=== PATIENT | female | born 1960 | race Caucasian/White ===

== ENCOUNTER 2019-06-11 17:50 | Inpatient (IN) | payer MEDICARE, OTHER ==
[~2019-06-11] VITALS: Ht 154.9 cm; Wt 64.0 kg
[2019-06-11] MEDS ORDERED: IV RINGERS SOLUTION,LACTATED 1,000 ML IV SCH (18:04)
--- NOTE | 2019-06-11 18:04 | ED.ADGEN ---
Past History Past Medical History: Anxiety, Arthritis, Bipolar, Constipation, COPD, Dementia, Depression, Gallstones, High Cholesterol, Hypertension Past Surgical History: Cholecystectomy Smoking: Quit Greater Than 1 Year Adult General Chief Complaint Chief Complaint ".. I am sad.... I... get depressed... " "Not good... .. " HPI HPI Patient is a 59 year old female who presents with above hx and complaints of mental status change and depression. Pt. resident of [place], [place] since 11/28/2014. Patient has a prior diagnosis of bipolar disorder, allergic rhinitis, chronic salpingitis, deconditioning- weakness, dis- coordination, hypothyroidism, type 2 diabetes, schizoaffective disorder, arthritis, gastritis, GERD, Constipation and Dementia. . Patient sent for evaluation for [facility]. Pt. is not pre- approved. Patient currently minimally informative. Pt. normally follows with Dr. Faust. Pt. admits to being depressed only other current complaints is some epigastric tenderness. [facility] reports she had expressed suicidal ideation. Review of Systems Review of Systems Poor Historian Constitutional: Denies fever or chills [] Eyes: Denies change in visual acuity, redness, or eye pain [] HENT: Denies nasal congestion or sore throat [] Respiratory: Denies cough or shortness of breath [] Cardiovascular: No additional information not addressed in HPI [] GI:Complaints of epigastric, and mid abdomen pain, Denies , nausea, vomiting, bloody stools or diarrhea [] Complaints of Constipation : Denies dysuria or hematuria [] Musculoskeletal: Denies back pain or joint pain [] Integument: Denies rash or skin lesions [] Neurologic: Denies headache, focal weakness or sensory changes [] Endocrine: Denies polyuria or polydipsia [] All other systems were reviewed and found to be within normal limits, except as documented in this note. Family History Family History Not currently available Current Medications Current Medications Current Medications Medications (Trade) Dose Ordered Sig/Sandra Start Time Stop Time Status Last Admin Dose Admin Lactated Ringer's 1,000 ml @ 1,000 mls/hr Q1H 06/11/19 18:04 06/11/19 19:03 DC 06/11/19 18:24 1,000 MLS/HR Magnesium Hydroxide (Milk Of Magnesia) 2,400 mg 1X ONCE 06/11/19 21:00 06/11/19 21:01 DC 06/11/19 20:48 2,400 MG See nursing for home meds Allergies Allergies Allergies Coded Allergies Type Severity Reaction Last Updated Verified No Known Drug Allergies 06/11/19 No Physical Exam Physical Exam Constitutional: Moderately acute emotional distress, non-toxic appearance. [Has very poor eye contact. ] HENT: Normocephalic, atraumatic, bilateral external ears normal, oropharynx moist, no oral exudates, nose normal. [] Eyes: PERRLA, EOMI, conjunctiva normal, no discharge. Glasses Neck: Normal range of motion, no tenderness, supple, no stridor. [] Cardiovascular:Heart rate regular rhythm, no murmur [mild PMI to the left Lungs & Thorax: Bilateral breath sounds equal at apex on auscultation []few basilar wheezes. Abdomen: Bowel sounds normal, soft, mild epigastric and mid abdomen tenderness, no masses, no pulsatile masses. Distended Skin: Warm, dry, no erythema, no rash. Poor turgor Back: No tenderness, no CVA tenderness. [] Extremities: No tenderness, no cyanosis, no clubbing, ROM intact, no edema. [] Neurologic: Alert and oriented , moves all extremities on request does have distal sensory, no gross focal deficits noted. []DTRs +2 patella and brachial. Very slow to respond to questions. Hesitant. Psychologic: Affect anxious, judgement appears impaired, mood depressed. Admits to suicidal thoughts. Denies Hallucinations or homicidal ideation. Current Patient Data Vital Signs Vital Signs Date Time Temp Pulse Resp B/P (MAP) Pulse Ox O2 Delivery O2 Flow Rate FiO2 06/12/19 00:00 77 16 130/85 (100) 95 Room Air 06/11/19 21:33 98.7 Lab Results Laboratory Tests Test 06/11/19 18:14 06/11/19 19:02 White Blood Count 5.1 x10^3/uL (4.0-11.0) Red Blood Count 4.23 x10^6/uL (3.50-5.40) Hemoglobin 12.7 g/dL (12.0-15.5) Hematocrit 38.4 % (36.0-47.0) Mean Corpuscular Volume 91 fL (79-100) Mean Corpuscular Hemoglobin 30 pg (25-35) Mean Corpuscular Hemoglobin Concent 33 g/dL (31-37) Red Cell Distribution Width 13.6 % (11.5-14.5) Platelet Count 263 x10^3/uL (140-400) Neutrophils (%) (Auto) 77 % (31-73) H Lymphocytes (%) (Auto) 16 % (24-48) L Monocytes (%) (Auto) 7 % (0-9) Eosinophils (%) (Auto) 0 % (0-3) Basophils (%) (Auto) 1 % (0-3) Neutrophils # (Auto) 4.0 x10^3uL (1.8-7.7) Lymphocytes # (Auto) 0.8 x10^3/uL (1.0-4.8) L Monocytes # (Auto) 0.3 x10^3/uL (0.0-1.1) Eosinophils # (Auto) 0.0 x10^3/uL (0.0-0.7) Basophils # (Auto) 0.0 x10^3/uL (0.0-0.2) Erythrocyte Sedimentation Rate 19 (0-25) Prothrombin Time 12.2 SEC (9.4-11.4) H Prothrombin Time INR 1.2 (0.9-1.1) H Activated Partial Thromboplast Time 39 SEC (23-33) H Sodium Level 139 mmol/L (136-145) Potassium Level 3.5 mmol/L (3.5-5.1) Chloride Level 101 mmol/L (98-107) Carbon Dioxide Level 29 mmol/L (21-32) Anion Gap 9 (6-14) Blood Urea Nitrogen 17 mg/dL (7-20) Creatinine 0.8 mg/dL (0.6-1.0) Estimated GFR (Cockcroft-Gault) 73.7 Glucose Level 95 mg/dL (70-99) Calcium Level 9.1 mg/dL (8.5-10.1) Magnesium Level 1.4 mg/dL (1.8-2.4) L Total Bilirubin 0.3 mg/dL (0.2-1.0) Direct Bilirubin 0.2 mg/dL (0.0-0.2) Aspartate Amino Transferase (AST) 22 U/L (15-37) Alanine Aminotransferase (ALT) 25 U/L (14-59) Alkaline Phosphatase 33 U/L (46-116) L Creatine Kinase 59 U/L (26-192) Troponin I Quantitative < 0.017 ng/mL (0-0.055) ZP-Pnj-S-Type Natriuretic Peptide 134 pg/mL (0-124) H Total Protein 7.0 g/dL (6.4-8.2) Albumin 3.4 g/dL (3.4-5.0) Urine Collection Type Unknown Urine Color Yellow Urine Clarity Clear Urine pH 7.0 Urine Specific [place] 1.010 Urine Protein Neg (NEG-TRACE) Urine Glucose (UA) Neg mg/dL (NEG) Urine Ketones (Stick) Neg mg/dL (NEG) Urine Blood Neg (NEG) Urine Nitrite Neg (NEG) Urine Bilirubin Neg (NEG) Urine Urobilinogen Dipstick 0.2 mg/dL (0.2 mg/dL) Urine Leukocyte Esterase Trace (NEG) Urine RBC 0 /HPF (0-2) Urine WBC 1-4 /HPF (0-4) Urine Squamous Epithelial Cells None /LPF Urine Bacteria 0 /HPF (0-FEW) Urine Opiates Screen Neg (NEG) Urine Methadone Screen Neg (NEG) Urine Barbiturates Neg (NEG) Urine Phencyclidine Screen Neg (NEG) Urine Amphetamine/Methamphetamine Neg (NEG) Urine Benzodiazepines Screen Neg (NEG) Urine Cocaine Screen Neg (NEG) Urine Cannabinoids Screen Neg (NEG) Urine Ethyl Alcohol Neg (NEG) EKG EKG My interpretation EKG shows a sinus rhythm at 88 beats per minute. There is left axis deviation and a fascicular block. No findings acute STEMI of contralateral changes[] Radiology/Procedures Radiology/[place] [address] IMAGING REPORT Signed PATIENT: PRO ROMERO ACCOUNT: [id number] : 1960 LOCATION: ER AGE: 59 SEX: F EXAM STATUS: REG ER ORD. PHYSICIAN: AMNA SCOTT MD REASON: Mental status change. Hx of fall PROCEDURE: CT HEAD AND CERVICAL SPINE WO CT Head W/O Contrast: History: Mental status change Comparison: none Axial images were obtained without contrast. The meraz and white matter appears normal and symmetrical for the patients age. There is no mass effect, extraaxial fluid collections or hydrocephalus. There is no gross bleed. There is no focal loss of meraz-white matter distinction to suggest acute ischemia, i.e. stroke. There is a polyp versus mucous retention cyst in the right maxillary sinus. Impression: No acute findings. End impression CT C-Spine without contrast: Clinical History: Mental status change and fall Technique: Axial helical images of the cervical spine were obtained without contrast, axial coronal and sagittal reconstruction was performed. Findings: There is no loss of vertebral body stature. There is no prevertebral soft tissue swelling. The vertebral bodies are well aligned. The C1-C2 relationship is normal. The visualized osseous structures appear normal. Impression: No acute findings. Clinical correlation suggested. PQRS Compliance Statement: One or more of the following individualized dose reduction techniques were utilized for this examination: 1. Automated exposure control 2. Adjustment of the mA and/or kV according to patient size 3. Use of iterative reconstruction technique Electronically signed by: Suzan Carlos III, MD (06/11/2019 7:58 PM) [facility] DICTATED AND SIGNED BY: SUZAN CARLOS III, MD DATE: 06/11/191957 CC: AMNA SCOTT MD; PCP,NO ~ [][place] [address] IMAGING REPORT Signed PATIENT: PRO ROMERO ACCOUNT: [id number] : 1960 LOCATION: ER AGE: 59 SEX: F EXAM STATUS: REG ER ORD. PHYSICIAN: AMNA SCOTT MD REASON: mid abdomen pain PROCEDURE: ABDOMEN SUPINE & UPRIGHT AP upright supine abdomen x-rays HISTORY: Mid abdominal pain. FINDINGS: Lung bases unremarkable. Cholecystectomy clips. No pneumoperitoneum. Mild prominent gas throughout the large and small bowel without abnormal dilation. Mild volume of stool within the rectosigmoid colon. No abnormal air-fluid levels of the bowel on the upright film. Bones are unremarkable. IMPRESSION: No bowel obstruction evident. Electronically signed by: Tan Epstein MD (06/11/2019 9:49 PM) [id number] DICTATED AND SIGNED BY: TAN EPSTEIN MD DATE: 06/11/192148 CC: AMNA SCOTT MD; PCP,NO ~ Course & Med Decision Making Course & Med Decision Making Pertinent Labs and Imaging studies reviewed. (See chart for details) See Tele Psych Eval. - Dr. Xiomara Mendoza Pt. accepted to [facility] - Dr. Rai. Consult to Dr. Sanchez for medical issues. [] Final Impression Final Impression 1. Mental Status Change[] 2. Depression 3. Hx. Bipolar 4. Hypomagnesium 1.4 5. Constipation 6. Suicidal ideation 7. History of hypertension 8. History of chronic pain 9. History of anxiety disorder 10. History of elevated lipids 11. History of COPD 12. Hx. Schizoaffective Disorder 13. Hx. Dementia 14. Hx. of Gait Disorder Dragon Disclaimer Dragon Disclaimer This electronic medical record was generated, in whole or in part, using a voice recognition dictation system. Dragon Disclaimer This chart was dictated in whole or in part using Voice Recognition software in a busy, high-work load, and often noisy Emergency Department environment. It may contain unintended and wholly unrecognized errors or omissions. AMNA SCOTT MD Jun 11, 2019 18:04
--- NOTE | 2019-06-11 18:42 | RAD ---
PORTABLE CHEST 1V Clinical History: MS change Technique: AP view of the chest was obtained at 06/11/2019 6:04 PM. Comparison: None. Findings: The cardiomediastinal silhouette is normal. The pulmonary vasculature is normal. The lungs and pleural margins are clear. Impression: No evidence of an acute cardiopulmonary process. Electronically signed by: Jose M Morrison III, MD (06/11/2019 6:25 PM) [facility]
[2019-06-11 18:52] LABS: BASO % 1 % (0-3); EOS % 0 % (0-3); HEMATOCRIT 38.4 % (36.0-47.0); HEMOGLOBIN 12.7 g/dL (12.0-15.5); LYMPH # 0.8 x10^3/uL (1.0-4.8); LYMPH % 16 % (24-48); MEAN CORPUSCULAR HEMOGLOBIN 30 pg (25-35); MEAN CORPUSCULAR HGB CONC 33 g/dL (31-37); MEAN CORPUSCULAR VOLUME 91 fL (79-100); MONO # 0.3 x10^3/uL (0.0-1.1); MONO % 7 % (0-9); NEUT % 77 % (31-73); PLATELET COUNT 263 x10^3/uL (140-400); RED BLOOD COUNT 4.23 x10^6/uL (3.50-5.40); RED CELL DISTRIBUTION WIDTH 13.6 % (11.5-14.5); WHITE BLOOD COUNT 5.1 x10^3/uL (4.0-11.0)
[2019-06-11 19:08] LABS: ALBUMIN 3.4 g/dL (3.4-5.0); CALCIUM 9.1 mg/dL (8.5-10.1); CREATININE 0.8 mg/dL (0.6-1.0); GFR 73.7
[2019-06-11 19:09] LABS: DIRECT BILIRUBIN 0.2 mg/dL (0.0-0.2); MAGNESIUM 1.4 mg/dL (1.8-2.4); POTASSIUM 3.5 mmol/L (3.5-5.1); TOTAL BILIRUBIN 0.3 mg/dL (0.2-1.0)
[2019-06-11 19:26] LABS: BARBITURATES NEG (NEG); BENZODIAZEPINES NEG (NEG); CANNABINOIDS NEG (NEG); COCAINE NEG (NEG); METHADONE NEG (NEG); OPIATES NEG (NEG); PHENCYCLIDINE NEG (NEG)
[2019-06-11 19:27] LABS: AMPHETAMINE/METHAMPHETAMINE NEG (NEG)
[2019-06-11 19:32] LABS: BACTERIA,URINE 0 /HPF (0-FEW); BILIRUBIN,URINE NEG (NEG); CLARITY,URINE CLEAR; COLOR,URINE YELLOW; GLUCOSE,URINE NEG (NEG); NITRITE,URINE NEG (NEG); RBC,URINE 0 /HPF (0-2); UROBILINOGEN,URINE 0.2 mg/dL (0.2 mg/dL)
[2019-06-11 19:55] LABS: SEDIMENTATION RATE 19 (0-25)
--- NOTE | 2019-06-11 20:00 | RAD ---
CT Head W/O Contrast: History: Mental status change Comparison: none Axial images were obtained without contrast. The meraz and white matter appears normal and symmetrical for the patients age. There is no mass effect, extraaxial fluid collections or hydrocephalus. There is no gross bleed. There is no focal loss of meraz-white matter distinction to suggest acute ischemia, i.e. stroke. There is a polyp versus mucous retention cyst in the right maxillary sinus. Impression: No acute findings. End impression CT C-Spine without contrast: Clinical History: Mental status change and fall Technique: Axial helical images of the cervical spine were obtained without contrast, axial coronal and sagittal reconstruction was performed. Findings: There is no loss of vertebral body stature. There is no prevertebral soft tissue swelling. The vertebral bodies are well aligned. The C1-C2 relationship is normal. The visualized osseous structures appear normal. Impression: No acute findings. Clinical correlation suggested. PQRS Compliance Statement: One or more of the following individualized dose reduction techniques were utilized for this examination: 1. Automated exposure control 2. Adjustment of the mA and/or kV according to patient size 3. Use of iterative reconstruction technique Electronically signed by: Jose M Morrison III, MD (06/11/2019 7:58 PM) [facility]
[2019-06-11] MEDS ORDERED: MAGNESIUM HYDROXIDE 2,400 MG/30 ML ORAL.SUSP. PO ONE ×2 (20:45→21:00)
--- NOTE | 2019-06-11 21:52 | RAD ---
AP upright supine abdomen x-rays HISTORY: Mid abdominal pain. FINDINGS: Lung bases unremarkable. Cholecystectomy clips. No pneumoperitoneum. Mild prominent gas throughout the large and small bowel without abnormal dilation. Mild volume of stool within the rectosigmoid colon. No abnormal air-fluid levels of the bowel on the upright film. Bones are unremarkable. IMPRESSION: No bowel obstruction evident. Electronically signed by: Alexander Epstein MD (06/11/2019 9:49 PM) [id number]
[2019-06-12] MEDS ORDERED: MAG HYDROX/AL HYDROX/SIMETH 30 ML ORAL.SUSP PO PRN (00:45)
[2019-06-12] MEDS ORDERED: MAGNESIUM HYDROXIDE 2,400 MG/30 ML ORAL.SUSP. PO PRN (00:45)
[2019-06-12] MEDS ORDERED: METHYL SALICYLATE/MENTHOL TOPICAL OINTMENT 57GM TUBE. TP PRN (00:45)
[2019-06-12] MEDS ORDERED: ACETAMINOPHEN 325 MG TABLET PO PRN (00:45)
[2019-06-12] MEDS ORDERED: FLUT16SP21 NS (01:26)
[2019-06-12] MEDS ORDERED: SIMV20TA18 PO (01:26)
[2019-06-12] MEDS ORDERED: METF500T16 PO (01:26)
[2019-06-12] MEDS ORDERED: PALI117D IM (01:26)
[2019-06-12] MEDS ORDERED: CHOL100013 PO (01:26)
[2019-06-12] MEDS ORDERED: DIAZ5TAB4 PO (01:26)
[2019-06-12] MEDS ORDERED: MULT-245 PO (01:26)
[2019-06-12] MEDS ORDERED: FENO145T30 PO (01:26)
[2019-06-12] MEDS ORDERED: BUPR300T3 PO (01:26)
[2019-06-12] MEDS ORDERED: CHLO100T6 PO (01:26)
[2019-06-12] MEDS ORDERED: OLAN5TAB5 PO (01:26)
[2019-06-12] MEDS ORDERED: POLY2500 PO (01:26)
[2019-06-12] MEDS ORDERED: OLAN5TAB3 PO (01:26)
[2019-06-12] MEDS ORDERED: CALC500T13 PO (01:26)
[2019-06-12] MEDS ORDERED: LEVO75TA5 PO (01:26)
[2019-06-12] MEDS ORDERED: TIOT18CA IH (01:26)
[2019-06-12] MEDS ORDERED: DONE5TAB7 PO (01:26)
[2019-06-12 01:58] VITALS: BP 142/89
--- NOTE | 2019-06-12 02:17 | NUR ---
Admission Note with Justification for Admission to [facility] Patient admitted to [facility] for protective oversight for emergency stabilization of acute psychiatric crisis. Pt admitted from: [facility] Facility Mode of arrival: EMS Accompanied By: [facility] Staff Precipitating behaviors that initiated intake and admission:PT with SI depression anxiety, new diagnosis of Dementia made her feel SI. Attempted to walk into traffic. Description of failure of out patient attempts at stabilization in previous setting list behavior and medication trials: Med adjustments and therapy. Behaviors and assessment findings upon admission: Pt depressed and withdrawn, denies SI plan, but has SI thoughts related to new DX of dementia. Plan: Admit for protective oversight for adjustment and stabilization of medications, behaviors and mood. Intense treatment regimen including groups, medication adjustments, therapy, consistent regimen for ADL's, self care, and sleep hygiene. Daily monitoring by Inpatient staff, Psychiatry, and Medical Physician.
[2019-06-12] MEDS ORDERED: IPRATRPIUM/ALBUTEROL 0.5/2.5MG 3 ML NEBU. ONE (05:02)
[2019-06-12 05:53] VITALS: BP 108/73
[2019-06-12] MEDS: LEVOTHYROXINE 75 MCG TABLET PO SCH (06:25)
--- NOTE | 2019-06-12 06:39 | EKG ---
[address] [address] Test Date: 2019-06-11 Test Time: 18:07:52 Pat Name: PRO ROMERO Department: Room: [facility] 1 Gender: F Winder Helper: : 1960 Requested By: AMNA SCOTT Order Number: [id number] Reading MD: Kirk Raygoza MD Measurements Intervals [place] Rate: 88 P: 27 [place]: 206 QRS: -36 QRSD: 94 T: 103 QT: 384 QTc: 468 Interpretive Statements SINUS RHYTHM LAD NON-SPECIFIC ST/T CHANGES Electronically Signed On 06-18-2019 10:35:37 CDT by Kirk Raygoza MD
[2019-06-12] MEDS: IPRATRPIUM/ALBUTEROL 0.5/2.5MG 3 ML NEBU. NEB SCH ×4 (06:46→20:23)
[2019-06-12 07:08] LABS: ALBUMIN 3.2 g/dL (3.4-5.0); ALBUMIN/GLOBULIN RATIO 0.9 (1.0-1.7); CALCIUM 8.8 mg/dL (8.5-10.1); CREATININE 0.7 mg/dL (0.6-1.0); GFR 85.9; POTASSIUM 3.5 mmol/L (3.5-5.1); TOTAL BILIRUBIN 0.4 mg/dL (0.2-1.0); TOTAL PROTEIN 6.6 g/dL (6.4-8.2)
[2019-06-12] MEDS: POLYETHYLENE GLYCOL 3350 17 GM PACKET. PO SCH (08:56)
[2019-06-12] MEDS: FLUTICASONE 50MCG/NASAL SPRAY 16GM BOTTLE. NS SCH (08:57)
[2019-06-12] MEDS: MULTIVITAMIN with MINERAL TABLET. PO SCH (08:57)
[2019-06-12] MEDS: FENOFIBRATE NANOCRYSTALLIZED 145 MG TABLET PO SCH (08:57)
[2019-06-12] MEDS: CALCIUM CARBONATE 500 MG TABLET PO SCH (08:57)
[2019-06-12] MEDS: DONEPEZIL HCL 5 MG TABLET. PO SCH (08:57)
[2019-06-12] MEDS: metFORMIN 500 MG TABLET PO SCH ×2 (08:57→17:17)
[2019-06-12] MEDS: CHOLECALCIFEROL (VITAMIN D3) 1,000 UNIT TABLET PO SCH (08:58)
[2019-06-12] MEDS: buPROPion XL 300 MG TAB.ER.24H. PO SCH (08:58)
[2019-06-12] MEDS ORDERED: NON FORMULARY ITEM (Tiotropium Bromide (Spiriva) 18 MCG) IH SCH (09:00)
[2019-06-12] MEDS ORDERED: diazePAM 5 MG TABLET PO SCH (09:00)
--- NOTE | 2019-06-12 11:24 | NUR ---
Patient was in the dining room during morning rounding, took medications, allowed for morning assessment. Patient denies pain, was calm, flat, withdrawn to herself. Did sit in morning group and is currently watching tv in the dayroom. No agitation noted, patient denies S.I. Will continue to monitor.
[2019-06-12] MEDS ORDERED: FLU VAX QS 2019-20 (36MOS+)/PF 0.5 ML SYRINGE. VAX IM ONE (14:00)
[2019-06-12 16:07] VITALS: BP 135/89
[2019-06-12 17:07] LABS: THYROXINE 8.9 ug/dL (4.5-12.0)
--- NOTE | 2019-06-12 18:23 | NUR ---
Patient approached the nurses station mentioning a headache. Rated this an 04/06. PRN tylenol given @1801. Will continue to monitor.
[2019-06-12] MEDS: OLANZapine 5 MG TABLET PO SCH (20:30)
[2019-06-12] MEDS ORDERED: chlorproMAZINE HCL 25 MG TABLET PO SCH (21:00)
[2019-06-12 23:07] LABS: HEMOGLOBIN A1C 5.5 % (4.8-5.6)
--- NOTE | 2019-06-12 23:45 | NUR ---
Nursing Note Pt withdrawn with flat affect in room in the dark, minimally responsive, slow to answer.
--- NOTE | 2019-06-13 06:07 | CONS ---
DATE OF CONSULTATION: 06/12/2019 REASON FOR CONSULTATION: Medical management. HISTORY OF PRESENT ILLNESS: The patient is a 59-year-old female patient, resident at [facility] who apparently was admitted on account of threatening suicide by trying to walk out into traffic, depressed, anxious, sad, hearing sounds of a tunnel in her head, all this in a background of schizoaffective disorder with newly diagnosed dementia with suicidal ideation. PAST MEDICAL HISTORY: She apparently is known to have diabetes according to her, hypothyroidism. She has allergic rhinitis. PAST SURGICAL HISTORY: Significant for cholecystectomy and . FAMILY HISTORY: Noncontributory. SOCIAL HISTORY: She currently resides at [facility]. She used to work as a bernal in a bakery. She has 1 daughter. She is an ex-smoker, quit smoking about 3-1/2 years ago. She does not drink alcohol or use recreational drugs. REVIEW OF SYSTEMS: As per history of present illness. When I saw her this afternoon, she was sitting comfortably. ALLERGIES: She has no known drug allergies. MEDICATIONS: She is currently on following medications: She is on paliperidone 117 mg once a month, chlorpromazine 100 mg at bedtime, olanzapine 5 mg at bedtime, polyethylene glycol 17 grams daily, multivitamin 1 tablet once a day, vitamin D 1000 international unit once a day, fluticasone propionate for Flonase 2 sprays to each nostril once a day. She is on fenofibrate 145 mg daily, Aricept 5 mg daily, diazepam 1.25 mg daily. She is on calcium carbonate 500 mg daily, Wellbutrin XR 300 mg once a day, DuoNeb 3 mL 4 times a day by nebulizer, metformin 500 mg twice a day, and levothyroxine 75 mcg daily. She is on olanzapine 2.5 mg every 2 hours, milk of magnesia 30 mL p.o. daily p.r.n. for constipation, Mylanta 15 mL after meals and as needed and acetaminophen 650 mg every 6 hours. PHYSICAL EXAMINATION: GENERAL: When I saw her this afternoon, she looked pale, no jaundice, cyanosis or thyromegaly. No jugular venous distention. No limb edema. VITAL SIGNS: Her heart rate was 80, blood pressure 135/89, temperature was 98.1, respiratory rate was 16, and oxygen saturation was 96%. HEAD, EYES, EARS, NOSE AND THROAT: Showed normocephalic, atraumatic. NECK: Supple. HEART: Showed normal first and second heart sounds. No gallop or murmur. CHEST: Clear to auscultation. No crepitation or rhonchi. ABDOMEN: Distended, soft, nontender. No guarding or rigidity. No organomegaly. All hernial orifice intact. Bowel sounds normal. NEUROLOGIC: She has very flat affect, but all her cranial nerves are intact. EXTREMITIES: She moves extremities without difficulty. She ambulates without assistance or assistive devices. LABORATORY DATA: Showed a white cell count 5100, hemoglobin 12.7, hematocrit 38, MCV 91, and platelet count of 263,000 with normal manual differential. Her chemistry showed a serum sodium 139, potassium 3.5, chloride 101, bicarbonate 29, anion gap of 9, BUN 17, creatinine 0.8, estimated GFR was 74 mL per minute. Her glucose was 95, calcium was 9.1, magnesium was 1.4. Total bilirubin, AST, ALT, alkaline phosphatase were normal. Total protein was 7, albumin was 3.4. Her serum iron was 109, TIBC was 469 and iron saturation was 23. Serum triglycerides were 68, total cholesterol was 166, LDL was 96, VLDL was 13, HDL cholesterol was 57, ratio was 2. Her TSH was 2.418, which is well within normal range. Her prothrombin time, INR and aPTT are all slightly elevated. Urinalysis was essentially unremarkable and toxic screen was essentially negative. She did have a chest x-ray, which showed that the cardiomediastinal silhouette is normal. Pulmonary vasculature is normal. The lungs and pleural margins are clear. Her CT scan of the head and cervical spine showed the meraz and white matter appears normal and symmetrical for the patient's age. There is no mass effect, extraaxial fluid collection or hydrocephalus. There is no gross bleed. There is no focal loss of azul white matter distinction to suggest acute ischemia. There is a polyp versus mucous retention cyst in the right maxillary sinus. The cervical spine showed no acute finding and abdominal x-ray showed no bowel obstruction. IMPRESSION: In summary, this is a 59-year-old female patient who was admitted on account of threatening suicide, tried to walk out into traffic, depressed, anxious, sad, hearing sounds of a tunnel in her head and all this in a background of schizoaffective disorder with newly diagnosed dementia with suicidal ideation. Medically, she has multiple medical problems including hyperlipidemia, hypothyroidism, type 2 diabetes and chronic obstructive pulmonary disease. All in all, the patient seems to be medically stable. I will follow all the lab works that are still pending at the time of this dictation and make any necessary recommendation. Thank you Dr. Hi for allowing me to participate in the care of this patient. YANCY HARRISON MD DR: SUSSY/daniel JOB#: [id number] / [id number]
[2019-06-13 06:15] VITALS: BP 119/83
--- NOTE | 2019-06-13 07:03 | PSYEV ---
DATE OF SERVICE: 06/12/2019 REASON FOR ADMISSION: This 59-year-old single female was admitted to inpatient program at [facility] from [facility], because of increased behavior problems, threatening suicide, tried to walk into traffic recently, complaining of feeling depressed all the time, feeling sad, not having energy and also she hears the sound of a tunnel in her head. HISTORY OF PRESENT ILLNESS: The patient admits to being depressed, has been chronic. Apparently, she had suicidal thoughts before and also attempted suicide twice, mostly overdosing on aspirin when she was 16. She was also hospitalized to [place], [place], 3-1/2 years ago, following an overdose. The patient states she has been chronically depressed. She is not able to function when she is not happy and she feels that she has no energy. The patient denied of any problems with alcohol or drugs. The patient admits she had problems most of her life because she has fallen behind in school, probably learning disabilities and also functioning below average level of intelligence, and she was not able to work, not able to hold any jobs. 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 PAST MEDICAL HISTORY: The patient denies of having had any major medical problems. The patient has allergic rhinitis. CURRENT MEDICATIONS: Include she is on Invega Sustenna 170 mg monthly, chlorpromazine 100 mg at night, olanzapine 5 mg at night. She is also on vitamin D 1000 units daily. She is also on Flonase two sprays daily, TriCor 145 mg daily, Aricept 5 mg daily, diazepam 1.125 mg daily, bupropion 300 mg daily, metformin 500 mg b.i.d., levothyroxine 75 mcg daily. She is also on olanzapine 2.5 mg q. 2 hours p.r.n. PSYCHOSOCIAL HISTORY: The patient has difficulty providing much information with regard to her past. The patient admits to having problems most of her life. Her first hospitalization was when she was 16, following an overdose on aspirin. The patient is single. The patient has a daughter who lives in [place]. The patient admits that she was a slow learner, went up to 10th grade, had difficulty holding jobs. The patient also has been refusing to eat or drink recently and the patient is frequently expressing suicidal thoughts and plans. The patient also admitted to having problems with memory being confused and also hears noises in her ears, but denied of any auditory hallucinations. No delusions. The patient has been tried on several medications in the past, not clear whether the patient has been compliant with the treatment. The patient has no history of any substance abuse. The patient apparently had multiple psychiatric hospitalizations in the past. MENTAL STATUS EXAMINATION: The patient appeared to be of her stated age, withdrawn with marked psychomotor retardation, poor eye contact. The patient's speech was monotone, but coherent. The patient is also having difficulty with her concentration and thinking. Her affect and mood showed she is very depressed constantly contemplating suicide and also prior history of suicidal attempts at least twice. The patient also claims the medication she is taking is not helping her. The patient is also having difficulty functioning on day-to-day basis because her decreased energy, loss of interest, not able to motivate herself. The patient exhibited marked psychomotor retardation. The patient also has problems with concentration and thinking. The patient denies of any other psychotic symptoms except for hearing noises in her head. She is oriented to time, place and person. Her memory is intact for recent events. The patient also recalled few things from the past. The patient's judgment impaired. Insight limited. STRENGTHS: Fairly in good health, able to communicate. WEAKNESSES: The patient apparently had problems in school, dropped out in the 10th grade, slow learner, appears to be functioning on below average level of intelligence. The patient is also chronically depressed and also prior diagnosis of dementia and schizophrenia. ADMITTING DIAGNOSES: AXIS I: 1. Major depressive disorder, recurrent, [id number]. 2. Rule out schizoaffective disorder, depressed type. AXIS II: None. AXIS III: Decreased appetite, allergic rhinitis. INITIAL TREATMENT PLAN: The patient will be seen by Dr. Sanchez for physical exam. The patient will be seen by the psychiatrist daily. The patient will be encouraged to attend all the activities. The patient will be under observation. Consider changing her medications mainly focusing on treating her depression. LENGTH OF STAY: 7-10 days. DISCHARGE CRITERIA: The patient is able to maintain improvement for 3 consecutive days. ESTHER COX MD DR: GRACE/daniel JOB#: [id number] / [id number]
[2019-06-13 07:12] LABS: BASO % 1 % (0-3); EOS % 0 % (0-3); HEMATOCRIT 36.4 % (36.0-47.0); HEMOGLOBIN 12.1 g/dL (12.0-15.5); LYMPH % 23 % (24-48); MEAN CORPUSCULAR HEMOGLOBIN 30 pg (25-35); MEAN CORPUSCULAR HGB CONC 33 g/dL (31-37); MEAN CORPUSCULAR VOLUME 90 fL (79-100); MONO # 0.4 x10^3/uL (0.0-1.1); MONO % 9 % (0-9); NEUT # 2.8 x10^3uL (1.8-7.7); NEUT % 67 % (31-73); PLATELET COUNT 246 x10^3/uL (140-400); RED BLOOD COUNT 4.02 x10^6/uL (3.50-5.40); WHITE BLOOD COUNT 4.2 x10^3/uL (4.0-11.0)
[2019-06-13 07:35] LABS: CALCIUM 8.8 mg/dL (8.5-10.1); CREATININE 0.8 mg/dL (0.6-1.0); GFR 73.7; POTASSIUM 3.7 mmol/L (3.5-5.1)
[2019-06-13] MEDS: CALCIUM CARBONATE 500 MG TABLET PO SCH (10:01)
[2019-06-13] MEDS: FENOFIBRATE NANOCRYSTALLIZED 145 MG TABLET PO SCH (10:01)
[2019-06-13] MEDS: DONEPEZIL HCL 5 MG TABLET. PO SCH (10:01)
[2019-06-13] MEDS: LEVOTHYROXINE 75 MCG TABLET PO SCH (10:01)
[2019-06-13] MEDS: CHOLECALCIFEROL (VITAMIN D3) 1,000 UNIT TABLET PO SCH (10:01)
[2019-06-13] MEDS: MULTIVITAMIN with MINERAL TABLET. PO SCH (10:01)
[2019-06-13] MEDS: POLYETHYLENE GLYCOL 3350 17 GM PACKET. PO SCH (10:01)
[2019-06-13] MEDS: metFORMIN 500 MG TABLET PO SCH ×2 (10:01→17:17)
[2019-06-13] MEDS: buPROPion XL 300 MG TAB.ER.24H. PO SCH (10:02)
[2019-06-13] MEDS: diazePAM 5 MG TABLET PO SCH (10:03)
[2019-06-13] MEDS: FLUTICASONE 50MCG/NASAL SPRAY 16GM BOTTLE. NS SCH (10:03)
[2019-06-13] MEDS: IPRATRPIUM/ALBUTEROL 0.5/2.5MG 3 ML NEBU. NEB SCH ×3 (11:37→16:05)
--- NOTE | 2019-06-13 16:05 | NUR ---
SW contacted Nik, Resident Buyer at [facility], to discuss pt. progress.
[2019-06-13 16:13] VITALS: BP 116/81
--- NOTE | 2019-06-13 16:17 | NUR ---
Patient is in her room for medications and assessments. She is calm, cooperative and compliant. Flat affect. Withdrawn to room for a good part of the day, but did come to the day room for groups. Took her meds crushed and mixed with applesauce. Denies pain, denies SI/HI. No hallucinations or delusions on this shift.
[2019-06-13] MEDS: risperiDONE 2 MG TABLET. PO SCH (20:45)
[2019-06-13] MEDS: OLANZapine 5 MG TABLET PO SCH (20:45)
[2019-06-14] MEDS: IPRATRPIUM/ALBUTEROL 0.5/2.5MG 3 ML NEBU. NEB SCH ×5 (01:02→21:31)
--- NOTE | 2019-06-14 05:08 | NUR ---
Calm, comp-liant and coooperative. Patient was in day room for medications and assessments. Very queit and withdrawn. Patient went to sleep to room shortly after. No other notable behaviors at this time.
[2019-06-14 05:54] VITALS: BP 110/71
[2019-06-14] MEDS: LEVOTHYROXINE 75 MCG TABLET PO SCH (06:36)
[2019-06-14] MEDS: POLYETHYLENE GLYCOL 3350 17 GM PACKET. PO SCH (07:46)
[2019-06-14] MEDS: CHOLECALCIFEROL (VITAMIN D3) 1,000 UNIT TABLET PO SCH (07:47)
[2019-06-14] MEDS: buPROPion XL 300 MG TAB.ER.24H. PO SCH (07:47)
[2019-06-14] MEDS: FENOFIBRATE NANOCRYSTALLIZED 145 MG TABLET PO SCH (07:47)
[2019-06-14] MEDS: MULTIVITAMIN with MINERAL TABLET. PO SCH (07:47)
[2019-06-14] MEDS: DONEPEZIL HCL 5 MG TABLET. PO SCH (07:48)
[2019-06-14] MEDS: CALCIUM CARBONATE 500 MG TABLET PO SCH (07:48)
[2019-06-14] MEDS: metFORMIN 500 MG TABLET PO SCH ×2 (07:48→17:00)
[2019-06-14] MEDS: FLUTICASONE 50MCG/NASAL SPRAY 16GM BOTTLE. NS SCH (07:48)
[2019-06-14] MEDS: diazePAM 5 MG TABLET PO SCH (07:50)
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
--- NOTE | 2019-06-14 11:18 | NUR ---
Activity Therapy Assessment Completed based on observation, interview and notes. Pt. lying down on her bed when therapist approached. Pt. agreed to talk for 'a bit' but that she was 'very tired'. Pt. has long dark hair and wears glasses. Pt. stated she lives at [facility] and has one daughter and three grandchildren. She is also close to her sister, who is also her DPOA according to RAOUL. Pt. stated she was here for 'depression'. SW notes state Pt. is here for suicidal ideation as well. Pt. stated she enjoyed reading 'when she can focus', embroidery, and Bingo. Pt. then stated she was tired and wanted to nap before lunch and therapist complied with Pt. request. Pt. walks independently and completes most ADLs independently as well. Pt. is often withdrawn to her room and rarely engages with others. Her affect is very flat but she did attend a Social Work group with encouragement. Pt. is compliant with meds and cares and tends to keep to herself. Initial goal aimed to increase socialization and leisure engagement: Pt. will engage in three Activity Therapy groups or individual sessions per week. Addendum: 06/20/19 at 0947 by CHERI JEAN BAPTISTE ACT Goal changed 06/20/19: Pt. will participate in at least one Activity Therapy group per day.
--- NOTE | 2019-06-14 13:37 | PN ---
DATE: 06/13/2019 SUBJECTIVE: The patient was seen today, met with the staff, chart reviewed. The patient's behavior improved slightly, still withdrawn, still has some blunting affect, also poor eye contact, but the patient was able to hold the conversation. The patient admits she was getting ECT in the past, almost yearly basis, and states that the ECT did not helped her, did not stop all her problems. The patient continues to have problems with thinking at times, behaviors close to being catatonic. The patient currently not having any well-defined hallucinations or delusions, but she is constantly talking about the noise in her head like being in a tunnel. Also, information obtained from the family that her mother also was diagnosed with schizophrenia. The patient apparently was hospitalized almost yearly because of the problems, sometimes involuntary hospitalizations. OBSERVATION: VITAL SIGNS: Temperature 97.5, blood pressure 119/83, pulse 80, respirations 18, O2 sat 93%. GENERAL: Slept about 8 hours last night. CURRENT MEDICATIONS: The patient's current medications include Invega Sustenna 170 mg monthly. The patient was taken off of chlorpromazine 100 mg at night, will be taking olanzapine 5 mg at night. She is also on Aricept 5 mg daily, bupropion 300 mg daily and also olanzapine 2.5 mg q.2 hours p.r.n. The patient's diazepam ____ mg daily was discontinued. The patient is not having any side effects. LABORATORY DATA: The patient's lab reviewed. The patient's hemoglobin A1c was 5.5. ASSESSMENT: AXIS I: 1. Major depressive disorder, recurrent, moderate to severe. 2. Schizoaffective disorder, depressed type. 3. History of schizophrenia with catatonic symptoms. AXIS II: None. AXIS III: Allergic rhinitis, otherwise in good health. PLAN: To continue with the treatment. The patient is encouraged to attend all the activities. The patient's behavior to be monitored and also adjust the medication accordingly if he continued to exhibit more evidence of catatonia and psychotic symptoms. ESTHER COX MD DR: GRACE/daniel JOB#: [id number] / [id number]
--- NOTE | 2019-06-14 16:31 | NUR ---
Pt up adl to meals. Has been out to day room. Is quiet and withdrawn. Compliant with meds and cares.
[2019-06-14 16:56] VITALS: BP 130/90
[2019-06-14] MEDS: risperiDONE 2 MG TABLET. PO SCH (19:49)
[2019-06-14] MEDS: OLANZapine 5 MG TABLET PO SCH (19:50)
--- NOTE | 2019-06-15 01:52 | PN ---
DATE: 06/14/2019 SUBJECTIVE: The patient was seen today, met with the staff, chart reviewed. The patient still withdrawn, blunting of affect, indifferent to her surroundings and also of the conversation, mostly monosyllabic. Staff reports no major behavior problems. The patient is slow to respond to questions. OBSERVATION: VITAL SIGNS: Temperature 98.1, blood pressure 110/71, pulse 87, respirations 18, O2 sat 94%. GENERAL: Slept about 7 hours last night. The patient's appetite is fair. CURRENT MEDICATIONS: Include Invega Sustenna 117 mg monthly. The patient was taken off chlorpromazine yesterday. The patient will be on olanzapine 5 mg at night. She is also on Aricept 5 mg daily, bupropion 300 mg daily, and olanzapine 2.5 mg q. 2 hours p.r.n. The patient's diazepam was discontinued yesterday; the patient is not having any side effects. ASSESSMENT: 1. Major depressive disorder, recurrent, moderate to severe. 2. Schizoaffective disorder, depressed type. 3. History of schizophrenia with catatonic symptoms. PLAN: To continue with the treatment. ESTHER COX MD DR: Yoli JOB#: [id number] / [id number]
--- NOTE | 2019-06-15 02:25 | NUR ---
Nsg Note: Patient was calm, cooperative and compliant with medications. Patient is very withdrawn and flat, minimally verbal. Patient went to her room shortly after this encounter. Patient has been sleeping. No other notable behaviors at this time.
[2019-06-15 05:10] VITALS: BP 113/77
[2019-06-15] MEDS: LEVOTHYROXINE 75 MCG TABLET PO SCH (05:13)
[2019-06-15] MEDS: IPRATRPIUM/ALBUTEROL 0.5/2.5MG 3 ML NEBU. NEB SCH ×4 (05:35→20:02)
[2019-06-15] MEDS: CALCIUM CARBONATE 500 MG TABLET PO SCH (08:16)
[2019-06-15] MEDS: CHOLECALCIFEROL (VITAMIN D3) 1,000 UNIT TABLET PO SCH (08:16)
[2019-06-15] MEDS: buPROPion XL 300 MG TAB.ER.24H. PO SCH (08:16)
[2019-06-15] MEDS: MULTIVITAMIN with MINERAL TABLET. PO SCH (08:16)
[2019-06-15] MEDS: metFORMIN 500 MG TABLET PO SCH ×2 (08:16→17:00)
[2019-06-15] MEDS: FLUTICASONE 50MCG/NASAL SPRAY 16GM BOTTLE. NS SCH (08:17)
[2019-06-15] MEDS: diazePAM 5 MG TABLET PO SCH (08:22)
[2019-06-15] MEDS: DONEPEZIL HCL 5 MG TABLET. PO SCH (08:22)
[2019-06-15] MEDS: FENOFIBRATE NANOCRYSTALLIZED 145 MG TABLET PO SCH (08:22)
[2019-06-15] MEDS: POLYETHYLENE GLYCOL 3350 17 GM PACKET. PO SCH (08:31)
[2019-06-15 15:42] VITALS: BP 114/79
--- NOTE | 2019-06-15 15:47 | NUR ---
Pt has been up to meals and out to day room. is quiet and withdrawn. pt talked to dtr on phone. Visit went well.
[2019-06-15] MEDS: risperiDONE 2 MG TABLET. PO SCH (21:00)
[2019-06-15] MEDS: OLANZapine 5 MG TABLET PO SCH (21:00)
--- NOTE | 2019-06-15 21:16 | NUR ---
Nsg Note: Patient in day room at time of medication administration and assessments. Patient was sitting quietly watching TV. Patient only answers when spoken to. Calm, compliant, cooperative. Patient withdrew to room shortly after this interaction. No other notable behaviors at this time.
[2019-06-16] MEDS: IPRATRPIUM/ALBUTEROL 0.5/2.5MG 3 ML NEBU. NEB SCH ×3 (05:17→16:00)
[2019-06-16] MEDS: LEVOTHYROXINE 75 MCG TABLET PO SCH (05:22)
[2019-06-16 07:11] VITALS: BP 99/66
[2019-06-16] MEDS: FLUTICASONE 50MCG/NASAL SPRAY 16GM BOTTLE. NS SCH (07:48)
[2019-06-16] MEDS: metFORMIN 500 MG TABLET PO SCH ×2 (07:48→17:00)
[2019-06-16] MEDS: CHOLECALCIFEROL (VITAMIN D3) 1,000 UNIT TABLET PO SCH (07:48)
[2019-06-16] MEDS: DONEPEZIL HCL 5 MG TABLET. PO SCH (07:48)
[2019-06-16] MEDS: buPROPion XL 300 MG TAB.ER.24H. PO SCH (07:48)
[2019-06-16] MEDS: FENOFIBRATE NANOCRYSTALLIZED 145 MG TABLET PO SCH (07:48)
[2019-06-16] MEDS: MULTIVITAMIN with MINERAL TABLET. PO SCH (07:48)
[2019-06-16] MEDS: POLYETHYLENE GLYCOL 3350 17 GM PACKET. PO SCH (07:48)
[2019-06-16] MEDS: CALCIUM CARBONATE 500 MG TABLET PO SCH (07:51)
[2019-06-16] MEDS: diazePAM 5 MG TABLET PO SCH (07:51)
[2019-06-16 15:40] VITALS: BP 127/88
--- NOTE | 2019-06-16 16:02 | PN ---
DATE: 06/16/2019 SUBJECTIVE: The patient was seen today, met with the staff, chart reviewed. Staff reports no change in her behavior, still withdrawn, isolative, almost catatonic. The patient does not make eye contact. The patient is not admitting to having any auditory hallucinations at this time. OBSERVATION: VITAL SIGNS: Temperature 97.1, blood pressure 99/66, pulse 71, respiration 18, O2 sat 98%. GENERAL: Slept about 8 hours last night. The patient's appetite is fair. MEDICATIONS: The patient's current medications include olanzapine 5 mg at night, Aricept 5 mg daily, bupropion 300 mg daily, and olanzapine 2.5 mg q. 2 hours p.r.n. The patient is not exhibiting any major side effects to medications. ASSESSMENT: 1. Major depressive disorder, recurrent, moderate to severe. 2. Schizoaffective disorder, bipolar type; history of schizophrenia with catatonic symptoms. PLAN: To continue with the treatment. ESTHER COX MD DR: GRACE/daniel JOB#: [id number] / [id number]
--- NOTE | 2019-06-16 17:36 | NUR ---
Pt up adl to meals and out to day room. quiet and withdrawn. compliant with meds and cares.
[2019-06-16] MEDS: risperiDONE 2 MG TABLET. PO SCH (20:31)
[2019-06-16] MEDS: OLANZapine 5 MG TABLET PO SCH (20:31)
[2019-06-17] MEDS: IPRATRPIUM/ALBUTEROL 0.5/2.5MG 3 ML NEBU. NEB SCH ×4 (01:11→16:46)
--- NOTE | 2019-06-17 01:38 | NUR ---
Nursing Note Pt is quiet and isolative. Sits in the day room, watching TV but not interacting.
[2019-06-17 06:09] VITALS: BP 107/73
[2019-06-17] MEDS: LEVOTHYROXINE 75 MCG TABLET PO SCH (06:24)
[2019-06-17] MEDS: buPROPion XL 300 MG TAB.ER.24H. PO SCH (08:18)
[2019-06-17] MEDS: POLYETHYLENE GLYCOL 3350 17 GM PACKET. PO SCH (08:18)
[2019-06-17] MEDS: FENOFIBRATE NANOCRYSTALLIZED 145 MG TABLET PO SCH (08:18)
[2019-06-17] MEDS: CALCIUM CARBONATE 500 MG TABLET PO SCH (08:18)
[2019-06-17] MEDS: MULTIVITAMIN with MINERAL TABLET. PO SCH (08:18)
[2019-06-17] MEDS: CHOLECALCIFEROL (VITAMIN D3) 1,000 UNIT TABLET PO SCH (08:19)
[2019-06-17] MEDS: metFORMIN 500 MG TABLET PO SCH ×2 (08:19→17:03)
[2019-06-17] MEDS: diazePAM 5 MG TABLET PO SCH (08:19)
[2019-06-17] MEDS: DONEPEZIL HCL 5 MG TABLET. PO SCH (08:19)
[2019-06-17] MEDS: FLUTICASONE 50MCG/NASAL SPRAY 16GM BOTTLE. NS SCH (08:20)
--- NOTE | 2019-06-17 12:31 | NUR ---
RAOUL received a call from [employer] requesting a [phone]. RAOUL contacted Tamica at [facility] who reports she believes they have sent the form but will send it again.
--- NOTE | 2019-06-17 13:39 | NUR ---
Patient is in her room for medications and assessments. She is calm, cooperative and compliant. Flat affect. Withdrawn to room for a good part of the day, but did come to the day room for most groups. Took her meds crushed and mixed with applesauce. Denies pain, denies SI/HI. No hallucinations or delusions on this shift.
--- NOTE | 2019-06-17 14:00 | NUR ---
Social work student (SWS) and patient walked around the unit to stretch our legs after the social work group meeting. Pt. shared that she lived in [place] and [place] and that she lived in [place] for 3 years to be with her father, who relocated there for warmer weather. When given the space and the quiet to do so, pt. responds to questions and will elaborate with some details. She shared that she liked the [employer] game on Monday and that the prizes were candy, a flashlight, and one other item. She said she won one bingo game and received a small flashlight. Pt. is quite alert and knows what is happening in her surroundings. SWS observes that in group activities, pt. will respond when asked direct questions or invited to participate. JAKOB plans to follow up with pt. on to talk more about her experience living in [place] and the [facility].
[2019-06-17 16:16] VITALS: BP 126/86
[2019-06-17] MEDS: risperiDONE 2 MG TABLET. PO SCH (20:43)
[2019-06-17] MEDS: risperiDONE 0.5 MG TABLET. PO SCH (20:43)
[2019-06-17] MEDS: OLANZapine 5 MG TABLET PO SCH (20:44)
--- NOTE | 2019-06-17 21:47 | PDOC ---
Exam Note: Hay Note: Please also refer to the separate dictated note~for this date of service dictated separately.~Patient seen individually. Discussed the patient with Nursing staff reviewed the chart.~Reviewed interim history and current functioning. Reviewed vital signs,~Labs/ Radiology~and current medications noted below. Continue current treatment with the changes noted in the dictated addendum note Assessment: Vital Signs/I&O: Vital Signs Date Time Temp Pulse Resp B/P (MAP) Pulse Ox O2 Delivery O2 Flow Rate FiO2 06/17/19 21:10 97 Room Air 06/17/19 16:16 98.0 88 18 126/86 (99) I & O 06/16/19 06/16/19 06/17/19 15:00 23:00 07:00 Intake Total 720 ml 580 ml Balance 720 ml 580 ml Current Medications: Meds: Current Medications Medications (Trade) Dose Ordered Sig/Sandra Route PRN Reason Start Time Stop Time Status Last Admin Dose Admin Risperidone (RisperDAL) 2 mg HS PO 06/17/19 21:00 06/17/19 20:43 Risperidone (RisperDAL) 0.5 mg QHS PO 06/17/19 21:00 06/17/19 20:43 I have reviewed the current psychotropics carefully including drug interactions. Risk benefit ratio favors no change other than as noted in my dictated progress note. Diagnosis: Problems: (1) Depression DANIEL HUGHES MD Jun 17, 2019 21:47
--- NOTE | 2019-06-17 22:05 | NUR ---
Patient withdrawn to room, laying facing the wall in her bed. She was compliant with medications taken whole with water. On dr. rounds patient told Dr Hi that she still "hears sounds". He increased her HS risperdal. Patient did not come out of room this night. She was able to answer the orientation questions and had flat affect but was pleasant during interaction. Patient denies wanting to hurt herself when asked.
[2019-06-18] MEDS: IPRATRPIUM/ALBUTEROL 0.5/2.5MG 3 ML NEBU. NEB SCH ×5 (00:14→20:24)
[2019-06-18] MEDS: LEVOTHYROXINE 75 MCG TABLET PO SCH (05:34)
[2019-06-18 06:27] VITALS: BP 119/83
[2019-06-18] MEDS: metFORMIN 500 MG TABLET PO SCH ×2 (09:36→17:52)
[2019-06-18] MEDS: buPROPion XL 300 MG TAB.ER.24H. PO SCH (09:36)
[2019-06-18] MEDS: CHOLECALCIFEROL (VITAMIN D3) 1,000 UNIT TABLET PO SCH (09:37)
[2019-06-18] MEDS: DONEPEZIL HCL 5 MG TABLET. PO SCH (09:37)
[2019-06-18] MEDS: FENOFIBRATE NANOCRYSTALLIZED 145 MG TABLET PO SCH (09:37)
[2019-06-18] MEDS: MULTIVITAMIN with MINERAL TABLET. PO SCH (09:37)
[2019-06-18] MEDS: CALCIUM CARBONATE 500 MG TABLET PO SCH (09:37)
[2019-06-18] MEDS: POLYETHYLENE GLYCOL 3350 17 GM PACKET. PO SCH (09:37)
[2019-06-18] MEDS: FLUTICASONE 50MCG/NASAL SPRAY 16GM BOTTLE. NS SCH (09:38)
[2019-06-18] MEDS: diazePAM 5 MG TABLET PO SCH (09:41)
[2019-06-18 15:52] VITALS: BP 138/98
--- NOTE | 2019-06-18 18:45 | NUR ---
Patient was up for morning SW group, but was withdrawn to her room most of the rest of the shift. At breakfast she was somewhat demanding and med seeking, stating that she needed her Xanax now. Otherwise, she was calm, quiet, withdrawn, and compliant. Will continue to monitor and report to oncoming shift. [facility] contacted per MD order and requested records received and provided to MD during rounds.
--- NOTE | 2019-06-18 18:46 | PN ---
DATE: 06/17/2019 PSYCHIATRIC PROGRESS NOTE This late entry 06/17/2019 covers elements not covered in my initial note. SUBJECTIVE: I met with the patient evening of 06/17/2019 and reviewed information from Dr. Rai who covered for me over the past 1 week. The patient slept 7-3/4 hours previous night. Per nursing report, she has been withdrawn, somewhat flat. States she hears sounds in her head, which is what prompted her admission from [facility]. She had threatened suicide, tried to walk out into traffic, was depressed, anxious, hearing a sound of a tunnel in her head, which prompted this admission. I had followed her at [facility] and she failed outpatient psychiatric interventions. REVIEW OF SYSTEMS: Positive for some tiredness. No CV, , pulmonary, eye system symptoms on review. MENTAL STATUS EXAM: Oriented to herself and situation. Speech moderate latency, low in rate and rhythm, low in volume, often responses monosyllabic. Abstraction fair. Computation impaired. Language function intact. Attention span short. She is still psychotic, paranoid, somewhat obsessive, withdrawn. LABORATORY DATA: Reviewed. IMPRESSION: Schizoaffective disorder, bipolar type, mixed with psychotic features, mild cognitive impairment; anxiety disorder, unspecified. PLAN: Continue Invega 117 mg monthly on the , Aricept 5 mg a day, Wellbutrin-XL 300 mg a day, may need to increase this later. We will increase Risperdal from 2 mg at bedtime to 2.5 mg at bedtime. Continue Zyprexa p.r.n. Rest unchanged for now. Consider Depakote as a mood stabilizer. MAN Mihaela HUGHES MD DR: CLIFTON/daniel JOB#: [id number] / [id number]
[2019-06-18] MEDS: risperiDONE 0.5 MG TABLET. PO SCH (20:33)
[2019-06-18] MEDS: OLANZapine 5 MG TABLET PO SCH (20:33)
[2019-06-18] MEDS: risperiDONE 2 MG TABLET. PO SCH (20:33)
[2019-06-18] MEDS: DIVALPROEX ER 500 MG TAB.ER.24H PO SCH (20:36)
--- NOTE | 2019-06-18 21:42 | PDOC ---
Exam Note: Hay Note: Please also refer to the separate dictated note~for this date of service dictated separately.~Patient seen individually. Discussed the patient with Nursing staff reviewed the chart.~Reviewed interim history and current functioning. Reviewed vital signs,~Labs/ Radiology~and current medications noted below. Continue current treatment with the changes noted in the dictated addendum note Assessment: Vital Signs/I&O: Vital Signs Date Time Temp Pulse Resp B/P (MAP) Pulse Ox O2 Delivery O2 Flow Rate FiO2 06/18/19 20:25 95 Room Air 06/18/19 15:52 98.2 105 16 138/98 (111) I & O 06/17/19 06/17/19 06/18/19 14:59 22:59 06:59 Intake Total 360 ml 240 ml 100 ml Balance 360 ml 240 ml 100 ml Current Medications: Meds: Current Medications Medications (Trade) Dose Ordered Sig/Sandra Route PRN Reason Start Time Stop Time Status Last Admin Dose Admin Divalproex Sodium (Depakote Er) 500 mg HS PO 06/18/19 21:00 06/18/19 20:36 I have reviewed the current psychotropics carefully including drug interactions. Risk benefit ratio favors no change other than as noted in my dictated progress note. Diagnosis: Problems: (1) Depression (2) Schizoaffective disorder, depressive type (3) Anxiety disorder (4) Schizoaffective disorder, bipolar type DANIEL HUGHES MD Jun 18, 2019 21:42
--- NOTE | 2019-06-18 23:26 | NUR ---
Nsg Note: Patient was in her room at time of medication administration and assessments. Patient calm, cooperative and compliant. Withdrawn and quiet, but not unpleasant. Patient went to bed shortly after. No other notable behaviors at this time.
[2019-06-19] MEDS: IPRATRPIUM/ALBUTEROL 0.5/2.5MG 3 ML NEBU. NEB SCH ×4 (05:05→21:15)
[2019-06-19 05:38] VITALS: BP 122/82
[2019-06-19] MEDS: LEVOTHYROXINE 75 MCG TABLET PO SCH (06:06)
[2019-06-19] MEDS: FLUTICASONE 50MCG/NASAL SPRAY 16GM BOTTLE. NS SCH (08:41)
[2019-06-19] MEDS: diazePAM 5 MG TABLET PO SCH (08:42)
[2019-06-19] MEDS: CHOLECALCIFEROL (VITAMIN D3) 1,000 UNIT TABLET PO SCH (08:42)
[2019-06-19] MEDS: POLYETHYLENE GLYCOL 3350 17 GM PACKET. PO SCH (08:43)
[2019-06-19] MEDS: DONEPEZIL HCL 5 MG TABLET. PO SCH (08:43)
[2019-06-19] MEDS: CALCIUM CARBONATE 500 MG TABLET PO SCH (08:43)
[2019-06-19] MEDS: MULTIVITAMIN with MINERAL TABLET. PO SCH (08:43)
[2019-06-19] MEDS: metFORMIN 500 MG TABLET PO SCH ×2 (08:43→17:32)
[2019-06-19] MEDS: FENOFIBRATE NANOCRYSTALLIZED 145 MG TABLET PO SCH (08:43)
[2019-06-19] MEDS: buPROPion XL 300 MG TAB.ER.24H. PO SCH (08:43)
--- NOTE | 2019-06-19 14:54 | NUR ---
Patient is in the dining room for medications and assessments. Patient declined to take her Miralax, stating that she had diarrhea yesterday. She is calm, cooperative and compliant. Flat affect. Withdrawn to room for a good part of the day, but did come to the day room for most groups. Took her meds crushed and mixed with applesauce. Denies pain, denies SI/HI. No hallucinations or delusions on this shift.
[2019-06-19 16:55] VITALS: BP 120/87
[2019-06-19] MEDS: risperiDONE 2 MG TABLET. PO SCH (20:58)
[2019-06-19] MEDS: risperiDONE 0.5 MG TABLET. PO SCH (20:58)
[2019-06-19] MEDS: DIVALPROEX ER 500 MG TAB.ER.24H PO SCH (20:58)
[2019-06-19] MEDS: OLANZapine 5 MG TABLET PO SCH (20:58)
--- NOTE | 2019-06-19 21:37 | PDOC ---
Exam Note: Hay Note: Please also refer to the separate dictated note~for this date of service dictated separately.~Patient seen individually. Discussed the patient with Nursing staff reviewed the chart.~Reviewed interim history and current functioning. Reviewed vital signs,~Labs/ Radiology~and current medications noted below. Continue current treatment with the changes noted in the dictated addendum note Assessment: Vital Signs/I&O: Vital Signs Date Time Temp Pulse Resp B/P (MAP) Pulse Ox O2 Delivery O2 Flow Rate FiO2 06/19/19 21:17 98 Room Air 06/19/19 16:55 97.8 88 22 120/87 (98) I & O 06/18/19 06/18/19 06/19/19 15:00 23:00 07:00 Intake Total 720 ml 360 ml Balance 720 ml 360 ml Current Medications: I have reviewed the current psychotropics carefully including drug interactions. Risk benefit ratio favors no change other than as noted in my dictated progress note. Diagnosis: Problems: (1) Schizoaffective disorder, bipolar type (2) Anxiety disorder (3) Depression (4) Schizoaffective disorder, depressive type DANIEL HUGHES MD Jun 19, 2019 21:37
[2019-06-19] MEDS: DIVALPROEX 125 MG CAP.SPRINK PO SCH (22:56)
--- NOTE | 2019-06-19 23:38 | PN ---
DATE: 06/18/2019 PSYCHIATRIC PROGRESS NOTE This late entry 06/18/2019 covers the elements not covered in my initial note. SUBJECTIVE: I met with the patient in the evening. Per Vel RN, the patient slept 7-3/4 hours previous night. She spent more time in the day room, but when I met with her in the evening, she states she still hears sounds in her ears. She is compliant with meds, no behavior or agitation noted. REVIEW OF SYSTEMS: No CV, , pulmonary, eye system symptoms on review. MENTAL STATUS EXAM: Oriented to herself and situation. Speech moderate latency, often responses monosyllabic, quite withdrawn. Abstraction fair, computation impaired, language function intact. She does appear paranoid. LABORATORY DATA: Reviewed. IMPRESSION: Schizoaffective disorder, bipolar type, mixed with psychotic features; anxiety disorder, unspecified. PLAN: Start Depakote ER 500 mg p.o. at bedtime. Check CBC, CMP, valproic acid level in 3 days. Risperdal has been increased to 2.5 mg a day, may need to increase Wellbutrin in due course. Continue Invega IM every month, Aricept along with Zyprexa p.r.n. DANILE HUGHES MD DR: CLIFTON/daniel JOB#: [id number] / [id number]
--- NOTE | 2019-06-20 01:59 | NUR ---
Nursing Note Pt isolative to room, and withdrawn. Cooperative and compliant with meds and assessments.
[2019-06-20] MEDS: IPRATRPIUM/ALBUTEROL 0.5/2.5MG 3 ML NEBU. NEB SCH ×4 (05:08→19:55)
[2019-06-20 06:16] VITALS: BP 101/67
[2019-06-20] MEDS: LEVOTHYROXINE 75 MCG TABLET PO SCH (06:16)
[2019-06-20] MEDS: DONEPEZIL HCL 5 MG TABLET. PO SCH (08:29)
[2019-06-20] MEDS: metFORMIN 500 MG TABLET PO SCH ×2 (08:29→17:16)
[2019-06-20] MEDS: buPROPion XL 300 MG TAB.ER.24H. PO SCH (08:30)
[2019-06-20] MEDS: MULTIVITAMIN with MINERAL TABLET. PO SCH (08:30)
[2019-06-20] MEDS: FENOFIBRATE NANOCRYSTALLIZED 145 MG TABLET PO SCH (08:30)
[2019-06-20] MEDS: CALCIUM CARBONATE 500 MG TABLET PO SCH (08:30)
[2019-06-20] MEDS: diazePAM 5 MG TABLET PO SCH (08:31)
[2019-06-20] MEDS: DIVALPROEX 125 MG CAP.SPRINK PO SCH ×2 (08:32→20:21)
[2019-06-20] MEDS: FLUTICASONE 50MCG/NASAL SPRAY 16GM BOTTLE. NS SCH (08:32)
[2019-06-20] MEDS: CHOLECALCIFEROL (VITAMIN D3) 1,000 UNIT TABLET PO SCH (08:32)
[2019-06-20] MEDS: POLYETHYLENE GLYCOL 3350 17 GM PACKET. PO SCH (08:32)
--- NOTE | 2019-06-20 09:46 | NUR ---
WEEKLY ACTIVITY THERAPY NOTE Date of Admission: 06/12/2019 Date of AT Assessment: 06/14/2019 Goal aimed: to increase socialization and leisure engagement Initial Goal: Pt. will engage in three Activity Therapy groups or individual sessions per week. Weekly progress towards goal: exceeded, 03/30 all groups Group participation level: full Weekly highlights: exceeded goal, crafts on Monday (pumpkin with lids and foam paper) Behaviors observed: quiet, reserved but often around group, minimal eye contact, flat affect Plan: change goal to: Pt. will participate in at least one Activity Therapy group per day. Beneficial adaptations: direct prompting at times, positive response to craft activities
--- NOTE | 2019-06-20 11:02 | NUR ---
RAOUL contacted pt. sister, Nesha, to update her on pt. progress and tentative discharge scheduled for the later part of next week. Nesha did share pt. has trouble with her ears and this could be the voice/sounds she is hearing. This information was shared with the doctor. RAOUL contacted Nik, Rn Mds at [facility], to share pt. progress and tentative discharge.
--- NOTE | 2019-06-20 11:04 | NUR ---
WEEKLY NOTE Pt. has been eating 75% of meals and sleeping an average of 8 hours. Pt. is withdrawn to her room but will participate in recreational therapy and social work groups when invited. Pt. is quiet and has a flat affect. Pt. is compliant with medications and cooperative with cares. Pt. is tentatively scheduled to discharge the later part of next week, back to [facility].
--- NOTE | 2019-06-20 15:49 | NUR ---
Patient is in the dining room for medications and assessments. She is calm, cooperative and compliant. Flat affect. Withdrawn to room, but out in the day room for a larger portion of the day than on previous days. Took her meds crushed and mixed with applesauce. Denies pain, denies SI/HI. No hallucinations or delusions on this shift.
[2019-06-20 16:16] VITALS: BP 119/82
[2019-06-20] MEDS: risperiDONE 0.5 MG TABLET. PO SCH (20:21)
[2019-06-20] MEDS: risperiDONE 2 MG TABLET. PO SCH (20:21)
[2019-06-20] MEDS: OLANZapine 5 MG TABLET PO SCH (20:21)
--- NOTE | 2019-06-20 21:06 | PDOC ---
Exam Note: Hay Note: Please also refer to the separate dictated note~for this date of service dictated separately.~Patient seen individually. Discussed the patient with Nursing staff reviewed the chart.~Reviewed interim history and current functioning. Reviewed vital signs,~Labs/ Radiology~and current medications noted below. Continue current treatment with the changes noted in the dictated addendum note Assessment: Vital Signs/I&O: Vital Signs Date Time Temp Pulse Resp B/P (MAP) Pulse Ox O2 Delivery O2 Flow Rate FiO2 06/20/19 19:57 97 Room Air 06/20/19 16:16 97.9 87 16 119/82 (94) I & O 06/19/19 06/19/19 06/20/19 15:00 23:00 07:00 Intake Total 720 ml 120 ml 120 ml Balance 720 ml 120 ml 120 ml Current Medications: Meds: Current Medications Medications (Trade) Dose Ordered Sig/Sandra Route PRN Reason Start Time Stop Time Status Last Admin Dose Admin Divalproex Sodium (Depakote Sprinkles) 250 mg BID PO 06/19/19 22:45 06/20/19 20:21 I have reviewed the current psychotropics carefully including drug interactions. Risk benefit ratio favors no change other than as noted in my dictated progress note. Diagnosis: Problems: (1) Schizoaffective disorder, bipolar type (2) Anxiety disorder (3) Schizoaffective disorder, depressive type (4) Major depressive disorder, recurrent episode DANIEL HUGHES MD Jun 20, 2019 21:06
--- NOTE | 2019-06-21 00:13 | NUR ---
Nursing Note Pt isolative to room, and withdrawn. Cooperative and compliant with meds and assessments.
[2019-06-21] MEDS: IPRATRPIUM/ALBUTEROL 0.5/2.5MG 3 ML NEBU. NEB SCH ×3 (04:47→16:36)
[2019-06-21 06:22] VITALS: BP 94/59
[2019-06-21] MEDS: LEVOTHYROXINE 75 MCG TABLET PO SCH (06:43)
[2019-06-21 07:04] LABS: ALBUMIN 2.8 g/dL (3.4-5.0); ALBUMIN/GLOBULIN RATIO 0.8 (1.0-1.7); ALK PHOS 27 U/L (46-116); ALT (SGPT) 22 U/L (14-59); ANION GAP 7 (6-14); AST (SGOT) 18 U/L (15-37); BLOOD UREA NITROGEN 14 mg/dL (7-20); BUN/CREATININE RATIO 20 (6-20); CALCIUM 8.7 mg/dL (8.5-10.1); CARBON DIOXIDE 29 mmol/L (21-32); CHLORIDE 108 mmol/L (98-107); CREATININE 0.7 mg/dL (0.6-1.0); GFR 85.9; GLUCOSE 89 mg/dL (70-99); SODIUM 144 mmol/L (136-145); TOTAL BILIRUBIN 0.3 mg/dL (0.2-1.0); TOTAL PROTEIN 6.1 g/dL (6.4-8.2)
[2019-06-21 07:14] LABS: VAL ACID 26 mcg/mL (50-100)
[2019-06-21 07:15] LABS: BASO % 1 % (0-3); EOS % 0 % (0-3); HEMATOCRIT 34.8 % (36.0-47.0); HEMOGLOBIN 11.7 g/dL (12.0-15.5); LYMPH # 1.2 x10^3/uL (1.0-4.8); LYMPH % 36 % (24-48); MEAN CORPUSCULAR HEMOGLOBIN 31 pg (25-35); MEAN CORPUSCULAR HGB CONC 34 g/dL (31-37); MEAN CORPUSCULAR VOLUME 91 fL (79-100); MONO # 0.3 x10^3/uL (0.0-1.1); MONO % 7 % (0-9); NEUT % 56 % (31-73); PLATELET COUNT 222 x10^3/uL (140-400); RED BLOOD COUNT 3.83 x10^6/uL (3.50-5.40); RED CELL DISTRIBUTION WIDTH 13.6 % (11.5-14.5); WHITE BLOOD COUNT 3.5 x10^3/uL (4.0-11.0)
[2019-06-21] MEDS: DONEPEZIL HCL 5 MG TABLET. PO SCH (08:37)
[2019-06-21] MEDS: CHOLECALCIFEROL (VITAMIN D3) 1,000 UNIT TABLET PO SCH (08:37)
[2019-06-21] MEDS: FENOFIBRATE NANOCRYSTALLIZED 145 MG TABLET PO SCH (08:38)
[2019-06-21] MEDS: CALCIUM CARBONATE 500 MG TABLET PO SCH (08:38)
[2019-06-21] MEDS: buPROPion XL 300 MG TAB.ER.24H. PO SCH (08:38)
[2019-06-21] MEDS: diazePAM 5 MG TABLET PO SCH (08:38)
[2019-06-21] MEDS: DIVALPROEX 125 MG CAP.SPRINK PO SCH ×2 (08:38→20:23)
[2019-06-21] MEDS: metFORMIN 500 MG TABLET PO SCH ×2 (08:38→17:29)
[2019-06-21] MEDS: MULTIVITAMIN with MINERAL TABLET. PO SCH (08:38)
[2019-06-21] MEDS: FLUTICASONE 50MCG/NASAL SPRAY 16GM BOTTLE. NS SCH (08:44)
[2019-06-21] MEDS: POLYETHYLENE GLYCOL 3350 17 GM PACKET. PO SCH (08:44)
--- NOTE | 2019-06-21 15:44 | NUR ---
Pt calm, compliant with meds and assessment. Sitting in day room watching television. Quiet and withdrawn to self.
[2019-06-21 15:48] VITALS: BP 116/82
--- NOTE | 2019-06-21 18:17 | PN ---
DATE: 06/19/2019 PSYCHIATRIC PROGRESS NOTE This late entry 06/19/2019 covers the elements not covered in my initial note. SUBJECTIVE: I met with the patient in the evening of 06/19/2019 at length. Per Peggy ROUSE, patient slept 8-1/4 hours previous night. She remains flat, somewhat withdrawn. Facial expression is quite withdrawn, but did come out to the day room, attended some groups, which is an improvement. On very persistent questioning by me, she admitted the sounds in her ear had reduced from 100 down to 75 on a scale of 0-100 __ being none and 100 being the most she has ever experienced. REVIEW OF SYSTEMS: No CV, , pulmonary, eye system symptoms on review. MENTAL STATUS EXAM: Oriented to herself and situation. Speech moderate latency, often responses monosyllabic. Abstraction fair, computation impaired, language function intact. Mood and affect withdrawn. LABORATORY DATA: Reviewed. IMPRESSION: Schizoaffective disorder, bipolar type, mild cognitive impairment, psychotic disorder, unspecified. PLAN: Continue current psychotropics including Invega IM, Aricept, Wellbutrin, Risperdal, Depakote. Labs level to be checked on the Depakote on 06/21/2019. MAN Mihaela HUGHES MD DR: CLIFTON/daniel JOB#: [id number] / [id number]
--- NOTE | 2019-06-21 19:08 | PN ---
DATE: 06/20/2019 PSYCHIATRIC PROGRESS NOTE This late entry, 06/20, covers the elements not covered in my initial note. SUBJECTIVE: I met with the patient in the evening and staffed at a treatment team meeting with the entire team in the morning. She has been attending the [employer] group a little more, slept 7-1/4 hours, appetite 75%. REVIEW OF SYSTEMS: Still admits to hearing sounds. Information from family indicates she has had some hearing problems in the past that could impact the noise that she talks about at least partially. No CV, , pulmonary, eye system symptoms on review. Reliability poor. MENTAL STATUS EXAM: Oriented to herself and situation. Speech moderate latency, often responses monosyllabic. Abstraction fair, computation impaired, language function intact. Mood and affect withdrawn. LABORATORY DATA: Reviewed. IMPRESSION: Unchanged from initial note. PLAN: Increase Wellbutrin-XL from 300 mg a day to 450 mg a day. Continue Invega Sustenna IM monthly, Aricept, Depakote, Risperdal, adjust as clinically indicated. Follow labs level on the Depakote on 06/21. MAN Mihaela HUGHES MD DR: CLIFTON/daniel JOB#: [id number] / [id number]
[2019-06-21] MEDS: OLANZapine 5 MG TABLET PO SCH (20:24)
[2019-06-21] MEDS: risperiDONE 2 MG TABLET. PO SCH (20:24)
[2019-06-21] MEDS: risperiDONE 0.5 MG TABLET. PO SCH (20:24)
--- NOTE | 2019-06-21 21:32 | PDOC ---
Exam Note: Hay Note: Please also refer to the separate dictated note~for this date of service dictated separately.~Patient seen individually. Discussed the patient with Nursing staff reviewed the chart.~Reviewed interim history and current functioning. Reviewed vital signs,~Labs/ Radiology~and current medications noted below. Continue current treatment with the changes noted in the dictated addendum note Assessment: Vital Signs/I&O: Vital Signs Date Time Temp Pulse Resp B/P (MAP) Pulse Ox O2 Delivery O2 Flow Rate FiO2 06/21/19 16:37 Room Air 06/21/19 15:48 97.4 84 16 116/82 (93) 95 I & O 06/20/19 06/20/19 06/21/19 15:00 23:00 07:00 Intake Total 480 ml 240 ml 240 ml Balance 480 ml 240 ml 240 ml Labs: Laboratory Tests Test 06/21/19 06:24 White Blood Count 3.5 x10^3/uL (4.0-11.0) L Red Blood Count 3.83 x10^6/uL (3.50-5.40) Hemoglobin 11.7 g/dL (12.0-15.5) L Hematocrit 34.8 % (36.0-47.0) L Mean Corpuscular Volume 91 fL (79-100) Mean Corpuscular Hemoglobin 31 pg (25-35) Mean Corpuscular Hemoglobin Concent 34 g/dL (31-37) Red Cell Distribution Width 13.6 % (11.5-14.5) Platelet Count 222 x10^3/uL (140-400) Neutrophils (%) (Auto) 56 % (31-73) Lymphocytes (%) (Auto) 36 % (24-48) Monocytes (%) (Auto) 7 % (0-9) Eosinophils (%) (Auto) 0 % (0-3) Basophils (%) (Auto) 1 % (0-3) Neutrophils # (Auto) 2.0 x10^3uL (1.8-7.7) Lymphocytes # (Auto) 1.2 x10^3/uL (1.0-4.8) Monocytes # (Auto) 0.3 x10^3/uL (0.0-1.1) Eosinophils # (Auto) 0.0 x10^3/uL (0.0-0.7) Basophils # (Auto) 0.0 x10^3/uL (0.0-0.2) Sodium Level 144 mmol/L (136-145) Potassium Level 4.0 mmol/L (3.5-5.1) Chloride Level 108 mmol/L (98-107) H Carbon Dioxide Level 29 mmol/L (21-32) Anion Gap 7 (6-14) Blood Urea Nitrogen 14 mg/dL (7-20) Creatinine 0.7 mg/dL (0.6-1.0) Estimated GFR (Cockcroft-Gault) 85.9 BUN/Creatinine Ratio 20 (6-20) Glucose Level 89 mg/dL (70-99) Calcium Level 8.7 mg/dL (8.5-10.1) Total Bilirubin 0.3 mg/dL (0.2-1.0) Aspartate Amino Transferase (AST) 18 U/L (15-37) Alanine Aminotransferase (ALT) 22 U/L (14-59) Alkaline Phosphatase 27 U/L (46-116) L Total Protein 6.1 g/dL (6.4-8.2) L Albumin 2.8 g/dL (3.4-5.0) L Albumin/Globulin Ratio 0.8 (1.0-1.7) L Valproic Acid Level 26 mcg/mL (50-100) L Valproic Acid Last Dose Date 06/20/2019 Valproic Acid Last Dose Time 2100 Current Medications: Meds: Current Medications Medications (Trade) Dose Ordered Sig/Sandra Route PRN Reason Start Time Stop Time Status Last Admin Dose Admin Bupropion HCl (Wellbutrin Xl) 450 mg DAILY PO 06/21/19 09:00 06/21/19 08:38 Divalproex Sodium (Depakote Sprinkles) 500 mg BID PO 06/21/19 21:00 06/21/19 20:23 I have reviewed the current psychotropics carefully including drug interactions. Risk benefit ratio favors no change other than as noted in my dictated progress note. Diagnosis: Problems: (1) Schizoaffective disorder, bipolar type (2) Anxiety disorder (3) Major neurocognitive disorder (4) Major depressive disorder, recurrent episode (5) Schizoaffective disorder, depressive type DANIEL HUGHES MD Jun 21, 2019 21:32
--- NOTE | 2019-06-21 23:51 | NUR ---
Nsg Note: Patient was calm, cooperative and compliant with medications and assessments in day room watching a movie. Patient hypoverbal and flat affect. No SI. Patient went to sleep shortly after this. No other notable behaviors at this time.
[2019-06-22] MEDS: IPRATRPIUM/ALBUTEROL 0.5/2.5MG 3 ML NEBU. NEB SCH ×5 (00:30→20:05)
[2019-06-22] MEDS: LEVOTHYROXINE 75 MCG TABLET PO SCH (05:23)
[2019-06-22 06:08] VITALS: BP 102/70
[2019-06-22] MEDS: POLYETHYLENE GLYCOL 3350 17 GM PACKET. PO SCH (07:35)
[2019-06-22] MEDS: CALCIUM CARBONATE 500 MG TABLET PO SCH (07:35)
[2019-06-22] MEDS: CHOLECALCIFEROL (VITAMIN D3) 1,000 UNIT TABLET PO SCH (07:35)
[2019-06-22] MEDS: metFORMIN 500 MG TABLET PO SCH ×2 (07:35→17:00)
[2019-06-22] MEDS: DIVALPROEX 125 MG CAP.SPRINK PO SCH ×2 (07:35→20:10)
[2019-06-22] MEDS: FLUTICASONE 50MCG/NASAL SPRAY 16GM BOTTLE. NS SCH (07:35)
[2019-06-22] MEDS: buPROPion XL 300 MG TAB.ER.24H. PO SCH (07:36)
[2019-06-22] MEDS: MULTIVITAMIN with MINERAL TABLET. PO SCH (07:36)
[2019-06-22] MEDS: FENOFIBRATE NANOCRYSTALLIZED 145 MG TABLET PO SCH (07:36)
[2019-06-22] MEDS: DONEPEZIL HCL 5 MG TABLET. PO SCH (07:36)
[2019-06-22] MEDS: diazePAM 5 MG TABLET PO SCH (07:38)
[2019-06-22 16:38] VITALS: BP 118/84
--- NOTE | 2019-06-22 18:09 | NUR ---
pt up for meals and out to day room. quiet and withdrawn. Compliant with meds and cares.
[2019-06-22] MEDS: risperiDONE 0.5 MG TABLET. PO SCH (20:10)
[2019-06-22] MEDS: OLANZapine 5 MG TABLET PO SCH (20:10)
[2019-06-22] MEDS: risperiDONE 2 MG TABLET. PO SCH (20:10)
--- NOTE | 2019-06-22 22:36 | NUR ---
Pt located in the dayroom, sitting calmly. Compliant with whole medications. Pt has flat affect, poor eye contact. Pt stated that she was feeling slightly better, but still depressed.
--- NOTE | 2019-06-22 23:21 | PDOC ---
Exam Note: Hay Note: Please also refer to the separate dictated note~for this date of service dictated separately.~Patient seen individually. Discussed the patient with Nursing staff reviewed the chart.~Reviewed interim history and current functioning. Reviewed vital signs,~Labs/ Radiology~and current medications noted below. Continue current treatment with the changes noted in the dictated addendum note Assessment: Vital Signs/I&O: Vital Signs Date Time Temp Pulse Resp B/P (MAP) Pulse Ox O2 Delivery O2 Flow Rate FiO2 06/22/19 20:07 97 Room Air 06/22/19 16:38 97.6 86 22 118/84 (95) I & O 06/21/19 06/21/19 06/22/19 14:59 22:59 06:59 Intake Total 960 ml 240 ml 240 ml Balance 960 ml 240 ml 240 ml Current Medications: I have reviewed the current psychotropics carefully including drug interactions. Risk benefit ratio favors no change other than as noted in my dictated progress note. Diagnosis: Problems: (1) Schizoaffective disorder, bipolar type (2) Anxiety disorder (3) Major neurocognitive disorder (4) Major depressive disorder, recurrent episode (5) Depression (6) Schizoaffective disorder, depressive type DANIEL HUGHES MD Jun 22, 2019 23:21
[2019-06-23] MEDS: IPRATRPIUM/ALBUTEROL 0.5/2.5MG 3 ML NEBU. NEB SCH ×4 (05:08→19:48)
[2019-06-23] MEDS: LEVOTHYROXINE 75 MCG TABLET PO SCH (05:28)
[2019-06-23 05:36] VITALS: BP 109/74
[2019-06-23] MEDS: POLYETHYLENE GLYCOL 3350 17 GM PACKET. PO SCH (07:45)
[2019-06-23] MEDS: DIVALPROEX 125 MG CAP.SPRINK PO SCH ×2 (07:46→20:46)
[2019-06-23] MEDS: metFORMIN 500 MG TABLET PO SCH ×2 (07:46→17:00)
[2019-06-23] MEDS: FENOFIBRATE NANOCRYSTALLIZED 145 MG TABLET PO SCH (07:46)
[2019-06-23] MEDS: MULTIVITAMIN with MINERAL TABLET. PO SCH (07:46)
[2019-06-23] MEDS: CALCIUM CARBONATE 500 MG TABLET PO SCH (07:46)
[2019-06-23] MEDS: buPROPion XL 300 MG TAB.ER.24H. PO SCH (07:46)
[2019-06-23] MEDS: FLUTICASONE 50MCG/NASAL SPRAY 16GM BOTTLE. NS SCH (07:46)
[2019-06-23] MEDS: CHOLECALCIFEROL (VITAMIN D3) 1,000 UNIT TABLET PO SCH (07:46)
[2019-06-23] MEDS: diazePAM 5 MG TABLET PO SCH (07:48)
[2019-06-23] MEDS: DONEPEZIL HCL 10 MG TABLET PO SCH (07:48)
[2019-06-23] MEDS ORDERED: PALIPERIDONE PALMITATE 117 MG/0.75 ML IM SCH (09:00)
--- NOTE | 2019-06-23 14:02 | NUR ---
Pt up for meals and groups. Quiet and withdrawn. Compliant with meds and cares.
[2019-06-23 16:12] VITALS: BP 121/86
[2019-06-23] MEDS: OLANZapine 5 MG TABLET PO SCH (20:46)
[2019-06-23] MEDS: risperiDONE 2 MG TABLET. PO SCH (20:46)
[2019-06-23] MEDS: risperiDONE 0.5 MG TABLET. PO SCH (20:46)
--- NOTE | 2019-06-23 21:48 | PDOC ---
Exam Note: Hay Note: Please also refer to the separate dictated note~for this date of service dictated separately.~Patient seen individually. Discussed the patient with Nursing staff reviewed the chart.~Reviewed interim history and current functioning. Reviewed vital signs,~Labs/ Radiology~and current medications noted below. Continue current treatment with the changes noted in the dictated addendum note Assessment: Vital Signs/I&O: Vital Signs Date Time Temp Pulse Resp B/P (MAP) Pulse Ox O2 Delivery O2 Flow Rate FiO2 06/23/19 19:50 93 Room Air 06/23/19 16:12 98.2 87 18 121/86 (98) I & O 06/22/19 06/22/19 06/23/19 15:00 23:00 07:00 Intake Total 600 ml 120 ml Balance 600 ml 120 ml Current Medications: Meds: Current Medications Medications (Trade) Dose Ordered Sig/Sandra Route PRN Reason Start Time Stop Time Status Last Admin Dose Admin Paliperidone Palmitate (Invega Sustenna) 117 mg QMONTH IM 06/23/19 09:00 06/23/19 09:00 Donepezil HCl (Aricept) 10 mg DAILY PO 06/23/19 09:00 06/23/19 07:48 I have reviewed the current psychotropics carefully including drug interactions. Risk benefit ratio favors no change other than as noted in my dictated progress note. Diagnosis: Problems: (1) Schizoaffective disorder, bipolar type (2) Anxiety disorder (3) Major neurocognitive disorder (4) Major depressive disorder, recurrent episode (5) Schizoaffective disorder, depressive type DANIEL HUGHES MD Jun 23, 2019 21:48
--- NOTE | 2019-06-23 23:50 | NUR ---
Pt located in the dayroom this evening, watching the [employer] game. Pt withdrawn, has poor eye contact and will minimally answer assessment questions with one word answers. Compliant with whole medications.
[2019-06-24] MEDS: IPRATRPIUM/ALBUTEROL 0.5/2.5MG 3 ML NEBU. NEB SCH ×4 (05:00→23:09)
[2019-06-24 05:30] VITALS: BP 94/65
[2019-06-24] MEDS: LEVOTHYROXINE 75 MCG TABLET PO SCH (05:32)
--- NOTE | 2019-06-24 06:27 | PN ---
DATE: 06/21/2019 PSYCHIATRIC PROGRESS NOTE This late entry 06/21/2019 covers elements not covered in my initial note. SUBJECTIVE: I met with the patient evening of 06/21/2019. Per NASIM Alexis, the patient slept 7 hours previous night. She has been less withdrawn coming out of the day room watching television, but not very verbal. Valproic acid level is 26. REVIEW OF SYSTEMS: No CV, , PULMONARY, EYE, ENT system symptoms on review. MENTAL STATUS EXAM: Oriented to herself and situation. Speech moderate latency, often responses monosyllabic. Abstraction fair, computation impaired, language function intact. Mood and affect withdrawn. LABORATORY DATA: Reviewed. IMPRESSION: Unchanged from initial note. PLAN: Increase Depakote Sprinkles from 250 b.i.d. to 500 b.i.d. since the level is subtherapeutic at 26 at current dosage. We will check CBC, CMP, valproic acid level, ammonia level in 3 days. Rest unchanged for now. DANIEL HUGHES MD DR: CLIFTON/daniel JOB#: [id number] / [id number]
[2019-06-24] MEDS: POLYETHYLENE GLYCOL 3350 17 GM PACKET. PO SCH (08:20)
[2019-06-24] MEDS: FLUTICASONE 50MCG/NASAL SPRAY 16GM BOTTLE. NS SCH (08:20)
[2019-06-24] MEDS: buPROPion XL 300 MG TAB.ER.24H. PO SCH (08:21)
[2019-06-24] MEDS: MULTIVITAMIN with MINERAL TABLET. PO SCH (08:21)
[2019-06-24] MEDS: metFORMIN 500 MG TABLET PO SCH ×2 (08:24→17:11)
[2019-06-24] MEDS: DONEPEZIL HCL 10 MG TABLET PO SCH (08:24)
[2019-06-24] MEDS: DIVALPROEX 125 MG CAP.SPRINK PO SCH ×2 (08:25→20:30)
[2019-06-24] MEDS: diazePAM 5 MG TABLET PO SCH (08:25)
[2019-06-24] MEDS: CALCIUM CARBONATE 500 MG TABLET PO SCH (08:26)
[2019-06-24] MEDS: CHOLECALCIFEROL (VITAMIN D3) 1,000 UNIT TABLET PO SCH (08:26)
[2019-06-24] MEDS: FENOFIBRATE NANOCRYSTALLIZED 145 MG TABLET PO SCH (08:27)
[2019-06-24 16:02] VITALS: BP 146/92
--- NOTE | 2019-06-24 16:16 | NUR ---
Patient is in the dining room for medications and assessments. She is calm, cooperative and compliant. Flat affect. Withdrawn to room for some of the day, participated in groups. Took her meds crushed and mixed with applesauce. Denies pain, denies SI/HI. No hallucinations or delusions on this shift.
[2019-06-24] MEDS: OLANZapine 5 MG TABLET PO SCH (20:30)
[2019-06-24] MEDS: risperiDONE 2 MG TABLET. PO SCH (20:30)
[2019-06-24] MEDS: risperiDONE 0.5 MG TABLET. PO SCH (20:30)
--- NOTE | 2019-06-24 20:47 | PN ---
DATE: 06/23/2019 PSYCHIATRIC PROGRESS NOTE This late entry 06/23/2019 covers the elements not covered in my initial note. SUBJECTIVE: I met with the patient in the evening of 06/23/2019. The patient slept 7-1/4 hours previous night. She has been again coming out to the day room, which is where I sat and met with her at some length. She remains withdrawn, lesser than before, not trying to elope, less paranoid. REVIEW OF SYSTEMS: No CV, , pulmonary, eye system symptoms on review. MENTAL STATUS EXAM: Oriented to herself and situation. Speech moderate latency, often responses monosyllabic. Abstraction fair, computation impaired, language function intact. Mood and affect less withdrawn. LABORATORY DATA: Reviewed. IMPRESSION: Unchanged from initial note. PLAN: No change from initial note. Repeat labs on 06/25/2019. Adjust Depakote thereafter. MAN Mihaela HUGHES MD DR: CLIFTON/daniel JOB#: [id number] / [id number]
--- NOTE | 2019-06-24 20:54 | PN ---
DATE: 06/22/2019 PSYCHIATRIC PROGRESS NOTE This late entry 06/22/2019 covers elements not covered in my initial note. SUBJECTIVE: I met with the patient evening of 06/22/2019. The patient slept 7 hours previous night. Per nursing report, she appears less depressed comes out to the day room. Has been reading a book and when I questioned her, she said the one thing she enjoys is reading a book. REVIEW OF SYSTEMS: No CV, , pulmonary, eye system symptoms on review. She is less paranoid. MENTAL STATUS EXAM: Reasonably oriented. Speech has some latency, often responses monosyllabic. Abstraction fair, computation impaired, language function intact, attention span short. Mood and affect withdrawn. LABORATORY DATA: Reviewed. IMPRESSION: Schizoaffective disorder, bipolar type, mixed; anxiety disorder, unspecified; mild cognitive impairment. PLAN: Increase Aricept from 5 mg a day to 10 mg a day. Continue Invega monthly IM. Wellbutrin has been maximized at 450 mg a day, Risperdal, and Depakote unchanged at current dosage. Check labs on 06/25/2019. Adjust Depakote thereafter. MAN Mihaela HUGHES MD DR: CLIFTON/daniel JOB#: [id number] / [id number]
--- NOTE | 2019-06-24 21:11 | PDOC ---
Exam Note: Hay Note: Please also refer to the separate dictated note~for this date of service dictated separately.~Patient seen individually. Discussed the patient with Nursing staff reviewed the chart.~Reviewed interim history and current functioning. Reviewed vital signs,~Labs/ Radiology~and current medications noted below. Continue current treatment with the changes noted in the dictated addendum note Assessment: Vital Signs/I&O: Vital Signs Date Time Temp Pulse Resp B/P (MAP) Pulse Ox O2 Delivery O2 Flow Rate FiO2 06/24/19 16:02 97.4 100 16 146/92 (110) 98 06/24/19 15:51 Room Air I & O 06/23/19 06/23/19 06/24/19 15:00 23:00 07:00 Intake Total 720 ml 480 ml Balance 720 ml 480 ml Current Medications: I have reviewed the current psychotropics carefully including drug interactions. Risk benefit ratio favors no change other than as noted in my dictated progress note. Diagnosis: Problems: (1) Schizoaffective disorder, bipolar type (2) Anxiety disorder (3) Major neurocognitive disorder (4) Major depressive disorder, recurrent episode (5) Schizoaffective disorder, depressive type DANIEL HUGHES MD Jun 24, 2019 21:11
--- NOTE | 2019-06-24 22:56 | NUR ---
Pt withdrawn to her room all night. Pt continues to have flat affect. Compliant with whole medications.
[2019-06-25] MEDS: LEVOTHYROXINE 75 MCG TABLET PO SCH (05:39)
[2019-06-25 05:45] VITALS: BP 96/66
[2019-06-25] MEDS: IPRATRPIUM/ALBUTEROL 0.5/2.5MG 3 ML NEBU. NEB SCH ×4 (06:14→21:31)
[2019-06-25 07:53] LABS: BASO % 1 % (0-3); EOS % 0 % (0-3); HEMOGLOBIN 11.1 g/dL (12.0-15.5); LYMPH # 1.1 x10^3/uL (1.0-4.8); LYMPH % 26 % (24-48); MEAN CORPUSCULAR HEMOGLOBIN 30 pg (25-35); MEAN CORPUSCULAR HGB CONC 33 g/dL (31-37); MEAN CORPUSCULAR VOLUME 92 fL (79-100); MONO # 0.3 x10^3/uL (0.0-1.1); MONO % 8 % (0-9); NEUT # 2.9 x10^3uL (1.8-7.7); NEUT % 66 % (31-73); PLATELET COUNT 236 x10^3/uL (140-400); RED BLOOD COUNT 3.71 x10^6/uL (3.50-5.40); RED CELL DISTRIBUTION WIDTH 13.9 % (11.5-14.5); WHITE BLOOD COUNT 4.4 x10^3/uL (4.0-11.0)
[2019-06-25 08:04] LABS: ALBUMIN 2.6 g/dL (3.4-5.0); ALBUMIN/GLOBULIN RATIO 0.8 (1.0-1.7); ALK PHOS 26 U/L (46-116); ALT (SGPT) 20 U/L (14-59); ANION GAP 6 (6-14); AST (SGOT) 16 U/L (15-37); BLOOD UREA NITROGEN 19 mg/dL (7-20); BUN/CREATININE RATIO 32 (6-20); CALCIUM 8.4 mg/dL (8.5-10.1); CARBON DIOXIDE 30 mmol/L (21-32); CHLORIDE 107 mmol/L (98-107); CREATININE 0.6 mg/dL (0.6-1.0); GFR 102.7; GLUCOSE 87 mg/dL (70-99); POTASSIUM 3.9 mmol/L (3.5-5.1); SODIUM 143 mmol/L (136-145); TOTAL BILIRUBIN 0.2 mg/dL (0.2-1.0); TOTAL PROTEIN 5.8 g/dL (6.4-8.2)
[2019-06-25 08:14] LABS: VAL ACID 46 mcg/mL (50-100)
[2019-06-25] MEDS: FLUTICASONE 50MCG/NASAL SPRAY 16GM BOTTLE. NS SCH (08:25)
[2019-06-25] MEDS: POLYETHYLENE GLYCOL 3350 17 GM PACKET. PO SCH (08:25)
[2019-06-25] MEDS: buPROPion XL 300 MG TAB.ER.24H. PO SCH (08:27)
[2019-06-25] MEDS: DIVALPROEX 125 MG CAP.SPRINK PO SCH ×2 (08:27→20:39)
[2019-06-25] MEDS: MULTIVITAMIN with MINERAL TABLET. PO SCH (08:27)
[2019-06-25] MEDS: FENOFIBRATE NANOCRYSTALLIZED 145 MG TABLET PO SCH (08:28)
[2019-06-25] MEDS: metFORMIN 500 MG TABLET PO SCH ×2 (08:28→17:44)
[2019-06-25] MEDS: CALCIUM CARBONATE 500 MG TABLET PO SCH (08:29)
[2019-06-25] MEDS: DONEPEZIL HCL 10 MG TABLET PO SCH (08:29)
[2019-06-25] MEDS: CHOLECALCIFEROL (VITAMIN D3) 1,000 UNIT TABLET PO SCH (08:29)
[2019-06-25] MEDS: diazePAM 5 MG TABLET PO SCH (08:30)
--- NOTE | 2019-06-25 11:08 | NUR ---
RAOUL received a call from pt. DPOA, Nesha, who shared they have had a in the family. Pt. niece unexpectedly . Nesha does not want pt. to go to the and wants to be contacted if other family members call pt. talking about this subject and wanting her to go to the . Nesha plans to call pt. after lunch to share this information with pt. RAOUL alerted pt. nurse regarding the situation.
[2019-06-25 16:23] VITALS: BP 125/87
[2019-06-25] MEDS: risperiDONE 0.5 MG TABLET. PO SCH (20:10)
[2019-06-25] MEDS: risperiDONE 2 MG TABLET. PO SCH (20:10)
[2019-06-25] MEDS: OLANZapine 2.5 MG TABLET PO SCH (20:14)
--- NOTE | 2019-06-25 21:06 | PDOC ---
Exam Note: Hay Note: Please also refer to the separate dictated note~for this date of service dictated separately.~Patient seen individually. Discussed the patient with Nursing staff reviewed the chart.~Reviewed interim history and current functioning. Reviewed vital signs,~Labs/ Radiology~and current medications noted below. Continue current treatment with the changes noted in the dictated addendum note Assessment: Vital Signs/I&O: Vital Signs Date Time Temp Pulse Resp B/P (MAP) Pulse Ox O2 Delivery O2 Flow Rate FiO2 06/25/19 16:23 97.7 84 16 125/87 (100) 98 06/25/19 15:43 Room Air I & O 06/24/19 06/24/19 06/25/19 15:00 23:00 07:00 Intake Total 840 ml 360 ml Balance 840 ml 360 ml Labs: Laboratory Tests Test 06/25/19 07:15 White Blood Count 4.4 x10^3/uL (4.0-11.0) Red Blood Count 3.71 x10^6/uL (3.50-5.40) Hemoglobin 11.1 g/dL (12.0-15.5) L Hematocrit 34.0 % (36.0-47.0) L Mean Corpuscular Volume 92 fL (79-100) Mean Corpuscular Hemoglobin 30 pg (25-35) Mean Corpuscular Hemoglobin Concent 33 g/dL (31-37) Red Cell Distribution Width 13.9 % (11.5-14.5) Platelet Count 236 x10^3/uL (140-400) Neutrophils (%) (Auto) 66 % (31-73) Lymphocytes (%) (Auto) 26 % (24-48) Monocytes (%) (Auto) 8 % (0-9) Eosinophils (%) (Auto) 0 % (0-3) Basophils (%) (Auto) 1 % (0-3) Neutrophils # (Auto) 2.9 x10^3uL (1.8-7.7) Lymphocytes # (Auto) 1.1 x10^3/uL (1.0-4.8) Monocytes # (Auto) 0.3 x10^3/uL (0.0-1.1) Eosinophils # (Auto) 0.0 x10^3/uL (0.0-0.7) Basophils # (Auto) 0.0 x10^3/uL (0.0-0.2) Sodium Level 143 mmol/L (136-145) Potassium Level 3.9 mmol/L (3.5-5.1) Chloride Level 107 mmol/L (98-107) Carbon Dioxide Level 30 mmol/L (21-32) Anion Gap 6 (6-14) Blood Urea Nitrogen 19 mg/dL (7-20) Creatinine 0.6 mg/dL (0.6-1.0) Estimated GFR (Cockcroft-Gault) 102.7 BUN/Creatinine Ratio 32 (6-20) H Glucose Level 87 mg/dL (70-99) Calcium Level 8.4 mg/dL (8.5-10.1) L Total Bilirubin 0.2 mg/dL (0.2-1.0) Aspartate Amino Transferase (AST) 16 U/L (15-37) Alanine Aminotransferase (ALT) 20 U/L (14-59) Alkaline Phosphatase 26 U/L (46-116) L Ammonia 17 mcmol/L (11-34) Total Protein 5.8 g/dL (6.4-8.2) L Albumin 2.6 g/dL (3.4-5.0) L Albumin/Globulin Ratio 0.8 (1.0-1.7) L Valproic Acid Level 46 mcg/mL (50-100) L Valproic Acid Last Dose Date 06/24/19 Valproic Acid Last Dose Time 2100 Current Medications: Meds: Current Medications Medications (Trade) Dose Ordered Sig/Sandra Route PRN Reason Start Time Stop Time Status Last Admin Dose Admin Olanzapine (ZyPREXA) 2.5 mg HS PO 06/25/19 21:00 06/27/19 23:00 06/25/19 20:14 Divalproex Sodium (Depakote Sprinkles) 750 mg HS PO 06/25/19 21:00 06/25/19 20:39 I have reviewed the current psychotropics carefully including drug interactions. Risk benefit ratio favors no change other than as noted in my dictated progress note. Diagnosis: Problems: (1) Schizoaffective disorder, bipolar type (2) Anxiety disorder (3) Major neurocognitive disorder (4) Major depressive disorder, recurrent episode (5) Schizoaffective disorder, depressive type DANIEL HUGHES MD Jun 25, 2019 21:06
--- NOTE | 2019-06-25 22:19 | PN ---
DATE: 06/24/2019 PSYCHIATRIC PROGRESS NOTE This late entry 06/24/2019 covers elements not covered in my initial note. SUBJECTIVE: I met with the patient evening of 06/24/2019. Per NASIM Gonzales, the patient slept 5-3/4 hours previous night. She has been flat, withdrawn, does come out to the day room. Labs are to be drawn on the . REVIEW OF SYSTEMS: No CV, , pulmonary, eye system symptoms on review. MENTAL STATUS EXAM: Oriented to herself and situation. Speech moderate latency, low in rate and rhythm, low in volume, often responses monosyllabic. Abstraction fair, computation impaired, language function intact. Mood and affect withdrawn, but less so than before. LABORATORY DATA: Reviewed. IMPRESSION: Schizoaffective disorder, bipolar type, mixed with psychotic features; anxiety disorder, unspecified. Rest unchanged. PLAN: Continue psychotropics from initial note including Invega, Aricept, Wellbutrin, Zyprexa p.r.n., Risperdal, Depakote, Valium and schedule Zyprexa. In a day or so, we will stop the Valium, check labs on the and then taper and stop the Zyprexa. Rest unchanged for now. DANIEL HUGHES MD DR: CLIFTON/daniel JOB#: [id number] / [id number]
--- NOTE | 2019-06-25 22:47 | NUR ---
Nursing note: Assumed care of pt in the day room. She was withdrawn and reserved, compliant with meds and assessment. No c/o pain, no hallucinations or delusions. A&OX4
[2019-06-26 04:41] VITALS: BP 117/79
[2019-06-26] MEDS: IPRATRPIUM/ALBUTEROL 0.5/2.5MG 3 ML NEBU. NEB SCH ×3 (05:47→16:48)
[2019-06-26] MEDS: LEVOTHYROXINE 75 MCG TABLET PO SCH (06:10)
[2019-06-26] MEDS: DIVALPROEX 125 MG CAP.SPRINK PO SCH ×2 (08:14→19:54)
[2019-06-26] MEDS: MULTIVITAMIN with MINERAL TABLET. PO SCH (08:14)
[2019-06-26] MEDS: metFORMIN 500 MG TABLET PO SCH ×2 (08:14→17:16)
[2019-06-26] MEDS: CALCIUM CARBONATE 500 MG TABLET PO SCH (08:15)
[2019-06-26] MEDS: FENOFIBRATE NANOCRYSTALLIZED 145 MG TABLET PO SCH (08:15)
[2019-06-26] MEDS: CHOLECALCIFEROL (VITAMIN D3) 1,000 UNIT TABLET PO SCH (08:15)
[2019-06-26] MEDS: DONEPEZIL HCL 10 MG TABLET PO SCH (08:15)
[2019-06-26] MEDS: buPROPion XL 300 MG TAB.ER.24H. PO SCH (08:15)
[2019-06-26] MEDS: POLYETHYLENE GLYCOL 3350 17 GM PACKET. PO SCH (08:15)
[2019-06-26] MEDS: FLUTICASONE 50MCG/NASAL SPRAY 16GM BOTTLE. NS SCH (08:16)
--- NOTE | 2019-06-26 11:45 | NUR ---
Nursing note: Pt in dining room this morning for meds and assessment. Pt compliant with taking a few meds whole and the rest crushed and mixed with pudding per pt request. She states that she is feeling depressed, but denies any SI/HI and hallucinations. Pt has been withdrawn to her room for most of the shift reading. She answers questions appropriately but does not offer any additional information. Will continue to monitor.
--- NOTE | 2019-06-26 11:47 | NUR ---
SW contacted pt. sister, Nesha, to let her know pt. reports she received a call from her sister Gabrielle. Pt. did not divulge the conversation she had with Gabrielle, so it is unclear if pt. knows her niece . Nesha shared pt. daughter, Clementina, is planning a visit today to share this information in person. RAOUL will share this information with pt. nurse.
--- NOTE | 2019-06-26 15:30 | NUR ---
SW met with pt. to discuss the visit from her daughter. Pt. stated it was a good visit and did not mention the of her niece. SW asked how pt. was feeling, and she said "depressed." SW asked why she was depressed, to which pt. stated she is not "normal" enough to live with her family. RAOUL explained pt. family wants pt. to be somewhere she is safe. Pt. denied SI at this time.
[2019-06-26 15:54] VITALS: BP 122/86
[2019-06-26] MEDS: risperiDONE 0.5 MG TABLET. PO SCH (19:54)
[2019-06-26] MEDS: risperiDONE 2 MG TABLET. PO SCH (19:54)
[2019-06-26] MEDS: OLANZapine 2.5 MG TABLET PO SCH (19:54)
--- NOTE | 2019-06-26 21:40 | PDOC ---
Exam Note: Hay Note: Please also refer to the separate dictated note~for this date of service dictated separately.~Patient seen individually. Discussed the patient with Nursing staff reviewed the chart.~Reviewed interim history and current functioning. Reviewed vital signs,~Labs/ Radiology~and current medications noted below. Continue current treatment with the changes noted in the dictated addendum note Assessment: Vital Signs/I&O: Vital Signs Date Time Temp Pulse Resp B/P (MAP) Pulse Ox O2 Delivery O2 Flow Rate FiO2 06/26/19 20:00 98 Room Air 06/26/19 15:54 97.2 95 16 122/86 (98) I & O 06/25/19 06/25/19 06/26/19 15:00 23:00 07:00 Intake Total 600 ml 120 ml 120 ml Balance 600 ml 120 ml 120 ml Current Medications: Meds: Current Medications Medications (Trade) Dose Ordered Sig/Sandra Route PRN Reason Start Time Stop Time Status Last Admin Dose Admin Divalproex Sodium (Depakote Sprinkles) 500 mg DAILY PO 06/26/19 09:00 06/26/19 08:14 I have reviewed the current psychotropics carefully including drug interactions. Risk benefit ratio favors no change other than as noted in my dictated progress note. Diagnosis: Problems: (1) Schizoaffective disorder, bipolar type (2) Anxiety disorder (3) Major neurocognitive disorder (4) Major depressive disorder, recurrent episode (5) Schizoaffective disorder, depressive type DANIEL HUGHES MD Jun 26, 2019 21:40
--- NOTE | 2019-06-26 21:59 | NUR ---
Nursing note: Assumed care of pt in the day room where she was reserved and withdrawn. She denies SI but admits to depression. No hallucinations, delusions, or voices. No c/o pain. A&OX4. She is compliant and cooperative.
[2019-06-27] MEDS: IPRATRPIUM/ALBUTEROL 0.5/2.5MG 3 ML NEBU. NEB SCH ×5 (02:28→21:06)
[2019-06-27] MEDS: LEVOTHYROXINE 75 MCG TABLET PO SCH (04:42)
[2019-06-27 05:14] VITALS: BP 107/72
[2019-06-27] MEDS: buPROPion XL 300 MG TAB.ER.24H. PO SCH (07:27)
[2019-06-27] MEDS: CALCIUM CARBONATE 500 MG TABLET PO SCH (07:28)
[2019-06-27] MEDS: DIVALPROEX 125 MG CAP.SPRINK PO SCH ×2 (07:29→19:53)
[2019-06-27] MEDS: MULTIVITAMIN with MINERAL TABLET. PO SCH (07:29)
[2019-06-27] MEDS: metFORMIN 500 MG TABLET PO SCH ×2 (07:29→17:23)
[2019-06-27] MEDS: CHOLECALCIFEROL (VITAMIN D3) 1,000 UNIT TABLET PO SCH (07:29)
[2019-06-27] MEDS: FENOFIBRATE NANOCRYSTALLIZED 145 MG TABLET PO SCH (07:29)
[2019-06-27] MEDS: DONEPEZIL HCL 10 MG TABLET PO SCH (07:30)
[2019-06-27] MEDS: FLUTICASONE 50MCG/NASAL SPRAY 16GM BOTTLE. NS SCH (07:30)
[2019-06-27] MEDS: POLYETHYLENE GLYCOL 3350 17 GM PACKET. PO SCH (07:33)
--- NOTE | 2019-06-27 08:41 | NUR ---
WEEKLY ACTIVITY THERAPY NOTE Date of Admission: 06/12/2019 Date of AT Assessment: 06/14/2019 Goal aimed: to increase socialization and leisure engagement Initial Goal: Pt. will engage in three Activity Therapy groups or individual sessions per week. Goal changed 06/20: Pt. will participate in at least one Activity Therapy group per day. Weekly progress towards goal: achieved when two groups were offered, four groups this week Group participation level: full Weekly highlights: painting pumpkins, accepting help/suggestions Behaviors observed: quiet but willing to engage in activities, calm, flat affect Plan: no change to goal Beneficial adaptations: direct prompting at times, positive response to craft activities
--- NOTE | 2019-06-27 09:12 | PN ---
DATE: 06/25/2019 PSYCHIATRIC PROGRESS NOTE This late entry 06/25/2019 covers elements not covered in my initial note. SUBJECTIVE: I met with the patient evening of 06/25/2019. The patient slept 8-1/4 hours previous night. Valproic acid level is [address] Woods, RN. She has done better, but still isolated, depressed. Reportedly, her niece unexpectedly and she has not yet been informed of this. REVIEW OF SYSTEMS: Positive for some tiredness. No CV, , pulmonary, eye system symptoms on review. Reliability fair. MENTAL STATUS EXAM: Oriented reasonably. Speech has some latency, coherent, often responses monosyllabic. Abstraction fair, computation impaired, language function intact, attention span short. Mood and affect withdrawn. LABORATORY DATA: Reviewed. IMPRESSION: Unchanged from initial note. PLAN: We will go ahead and stop the Valium 1.25 mg daily, reduce the Zyprexa 5 mg at bedtime to 2.5 mg at bedtime for 2 days and then stop it. Increase the Depakote Sprinkles from 500 mg b.i.d. with a level of 46 and we will increase it to 500 a.m., 750 at bedtime. Check CBC, CMP, valproic acid level in 3 days. Continue rest unchanged including Wellbutrin-XL 450 mg a day, Aricept 10 mg a day, Invega 117 mg monthly, Risperdal 2.5 mg at bedtime. MAN Mihaela HUGHES MD DR: CLIFTON/daniel JOB#: [id number] / [id number]
--- NOTE | 2019-06-27 11:22 | NUR ---
RAOUL left message for pt. sister, Nesha, to discuss pt. progress. RAOUL left message for Nik, [employer] Clerk at [facility], to discuss pt. progress and discharge plans. Addendum: 06/27/19 at 1143 by KATERIN SILVEIRA RAOUL receive a call back from Nesha, who confirmed pt. daughter did share the news pt. montez . RAOUL received a call back from Nik and set discharge for 07/02/2019. RAOUL also informed Nik of pt. families wishes to not have pt. go to niece's and to let Nesha know if pt. family starts discussing this matter with pt.
--- NOTE | 2019-06-27 11:23 | NUR ---
WEEKLY NOTE Pt. has been eating 85% of meals and sleeping an average of 7 hours. Pt. is compliant with medications and assessments. Pt. continues to be withdrawn, flat, and depressed. Pt. daughter visited yesterday and shared pt. niece had . Pt. will discharge back to [facility] on 07/02/2019.
--- NOTE | 2019-06-27 14:26 | NUR ---
Patient is withdrawn to room most days. She lays in bed facing the wall but will answer questions when asked. Patient attends meals and has a good appetite. She has expressed no SI thoughts and denies auditory hallucinations when asked.
[2019-06-27 15:38] VITALS: BP 121/87
[2019-06-27] MEDS: risperiDONE 0.5 MG TABLET. PO SCH (19:53)
[2019-06-27] MEDS: risperiDONE 2 MG TABLET. PO SCH (19:53)
[2019-06-27] MEDS: OLANZapine 2.5 MG TABLET PO SCH (19:53)
--- NOTE | 2019-06-27 21:37 | PDOC ---
Exam Note: Hay Note: Please also refer to the separate dictated note~for this date of service dictated separately.~Patient seen individually. Discussed the patient with Nursing staff reviewed the chart.~Reviewed interim history and current functioning. Reviewed vital signs,~Labs/ Radiology~and current medications noted below. Continue current treatment with the changes noted in the dictated addendum note Assessment: Vital Signs/I&O: Vital Signs Date Time Temp Pulse Resp B/P (MAP) Pulse Ox O2 Delivery O2 Flow Rate FiO2 06/27/19 21:08 97 Room Air 06/27/19 15:38 97.8 92 18 121/87 (98) I & O 06/26/19 06/26/19 06/27/19 15:00 23:00 07:00 Intake Total 720 ml 240 ml 240 ml Balance 720 ml 240 ml 240 ml Labs: Laboratory Tests Test 06/27/19 07:57 Glucose (Fingerstick) 113 mg/dL (70-99) H Current Medications: I have reviewed the current psychotropics carefully including drug interactions. Risk benefit ratio favors no change other than as noted in my dictated progress note. Diagnosis: Problems: (1) Schizoaffective disorder, bipolar type (2) Anxiety disorder (3) Major neurocognitive disorder (4) Major depressive disorder, recurrent episode (5) Schizoaffective disorder, depressive type DANIEL HUGHES MD Jun 27, 2019 21:37
--- NOTE | 2019-06-27 21:55 | NUR ---
Nursing note: Assumed care of pt in the day room. She is withdrawn and quiet, denies SI but is depressed. She is cooperative and compliant, no c/o pain, no hallucinations, delusions, or voices.
[2019-06-28 05:34] VITALS: BP 109/74
[2019-06-28] MEDS: LEVOTHYROXINE 75 MCG TABLET PO SCH (05:55)
[2019-06-28] MEDS: POLYETHYLENE GLYCOL 3350 17 GM PACKET. PO SCH (09:00)
[2019-06-28] MEDS: metFORMIN 500 MG TABLET PO SCH ×2 (09:15→17:14)
[2019-06-28] MEDS: CHOLECALCIFEROL (VITAMIN D3) 1,000 UNIT TABLET PO SCH (09:15)
[2019-06-28] MEDS: CALCIUM CARBONATE 500 MG TABLET PO SCH (09:15)
[2019-06-28] MEDS: DIVALPROEX 125 MG CAP.SPRINK PO SCH ×2 (09:15→20:01)
[2019-06-28] MEDS: MULTIVITAMIN with MINERAL TABLET. PO SCH (09:15)
[2019-06-28] MEDS: buPROPion XL 300 MG TAB.ER.24H. PO SCH (09:15)
[2019-06-28] MEDS: DONEPEZIL HCL 10 MG TABLET PO SCH (09:15)
[2019-06-28] MEDS: FENOFIBRATE NANOCRYSTALLIZED 145 MG TABLET PO SCH (09:16)
[2019-06-28] MEDS: FLUTICASONE 50MCG/NASAL SPRAY 16GM BOTTLE. NS SCH (09:18)
[2019-06-28] MEDS: IPRATRPIUM/ALBUTEROL 0.5/2.5MG 3 ML NEBU. NEB SCH ×4 (09:40→20:23)
--- NOTE | 2019-06-28 10:30 | NUR ---
Nursing note: Pt in day room for morning meds and assessment. She was compliant with taking her meds crushed in pudding, per pt request and cooperative with assessment. She answered questions appropriately. Pt states she is depressed, but denies SI and hallucinations. Pt has been withdrawn to herself and is currently in the day room.
[2019-06-28 16:00] VITALS: BP 128/89
--- NOTE | 2019-06-28 19:12 | PN ---
DATE: 06/26/2019 PSYCHIATRIC PROGRESS NOTE This late entry 06/26/2019 covers elements not covered in my initial note. SUBJECTIVE: I met with the patient evening of 06/26/2019. Per NASIM Suarez, the patient slept 6-3/4 hours. She takes her Depakote whole, somewhat flat, withdrawn. No suicidal ideation as I questioned her. Still somewhat depressed. REVIEW OF SYSTEMS: No CV, , pulmonary, eye system symptoms on review. MENTAL STATUS EXAM: Oriented to herself and situation. Speech has some latency, often responses monosyllabic. Abstraction fair, computation impaired, language function intact, attention span short. Mood and affect somewhat withdrawn as noted. Hallucinations are much improved, which she refers to as noises and sounds. IMPRESSION: Unchanged from initial note. PLAN: No change from initial note. The patient's Valium was stopped. Zyprexa is being tapered and stopped. Depakote is being adjusted to reach therapeutic level since the last level was 46, subtherapeutic. She remains on Invega Sustenna and fair amount of Risperdal 2.5 mg at bedtime, which may be contributing to her withdrawal appearance and we will try and reduce the Risperdal schedule once we see how she does with the reduction of the scheduled Zyprexa. DANIEL HUGHES MD DR: CLIFTON/daniel JOB#: [id number] / [id number]
[2019-06-28] MEDS: risperiDONE 2 MG TABLET. PO SCH (20:01)
--- NOTE | 2019-06-28 21:30 | PDOC ---
Exam Note: Hay Note: Please also refer to the separate dictated note~for this date of service dictated separately.~Patient seen individually. Discussed the patient with Nursing staff reviewed the chart.~Reviewed interim history and current functioning. Reviewed vital signs,~Labs/ Radiology~and current medications noted below. Continue current treatment with the changes noted in the dictated addendum note Assessment: Vital Signs/I&O: Vital Signs Date Time Temp Pulse Resp B/P (MAP) Pulse Ox O2 Delivery O2 Flow Rate FiO2 06/28/19 20:25 99 Room Air 06/28/19 16:00 98.7 88 16 128/89 (102) I & O 06/27/19 06/27/19 06/28/19 15:00 23:00 07:00 Intake Total 720 ml 360 ml 240 ml Balance 720 ml 360 ml 240 ml Labs: Laboratory Tests Test 06/28/19 07:33 06/28/19 16:38 Glucose (Fingerstick) 86 mg/dL (70-99) 100 mg/dL (70-99) H Current Medications: Meds: Current Medications Medications (Trade) Dose Ordered Sig/Sandra Route PRN Reason Start Time Stop Time Status Last Admin Dose Admin Risperidone (RisperDAL) 2 mg HS PO 06/28/19 21:00 06/28/19 20:01 I have reviewed the current psychotropics carefully including drug interactions. Risk benefit ratio favors no change other than as noted in my dictated progress note. Diagnosis: Problems: (1) Schizoaffective disorder, bipolar type (2) Anxiety disorder (3) Major neurocognitive disorder (4) Major depressive disorder, recurrent episode (5) Schizoaffective disorder, depressive type DANIEL HUGHES MD Jun 28, 2019 21:30
--- NOTE | 2019-06-28 22:39 | NUR ---
Pt withdrawn to room, lying in bed at shift change. Pt calm but sad, depressed. Pt cooperative with assessment and compliant with medications administered whole.
--- NOTE | 2019-06-29 01:28 | PN ---
DATE: 06/27/2019 PSYCHIATRIC PROGRESS NOTE This late entry 06/27/2019 covers elements not covered in my initial note. SUBJECTIVE: I met with the patient in the evening and staffed at treatment team meeting in the morning. Appetite 85%, slept 7 hours. The patient's niece has , family are going to share this with the patient and we will address this. This is the reason we are postponing discharge back to long-term till we had a chance to process this with the patient to make sure the patient is handling this well. She remains withdrawn. REVIEW OF SYSTEMS: No CV, , pulmonary, eye system symptoms on review. MENTAL STATUS EXAM: Oriented to herself and situation. Speech moderate latency, often responses monosyllabic. Abstraction fair, computation impaired, language function intact. Speech has latency. No suicidal or homicidal ideation. LABORATORY DATA: Reviewed. IMPRESSION: Schizoaffective disorder, bipolar type, mixed with psychotic features, mild cognitive impairment. Rest unchanged. PLAN: Continue current psychotropics. Repeat CBC, CMP, valproic acid level 06/30/2019 and then adjust Depakote to reach therapeutic level. Rest unchanged. MAN Mihaela HUGHES MD DR: CLIFTON/daniel JOB#: [id number] / [id number]
[2019-06-29] MEDS: IPRATRPIUM/ALBUTEROL 0.5/2.5MG 3 ML NEBU. NEB SCH ×4 (05:27→23:34)
[2019-06-29 05:41] VITALS: BP 112/74
[2019-06-29] MEDS: LEVOTHYROXINE 75 MCG TABLET PO SCH (06:02)
[2019-06-29] MEDS: POLYETHYLENE GLYCOL 3350 17 GM PACKET. PO SCH (09:00)
[2019-06-29] MEDS: buPROPion XL 300 MG TAB.ER.24H. PO SCH (09:29)
[2019-06-29] MEDS: metFORMIN 500 MG TABLET PO SCH ×2 (09:29→17:21)
[2019-06-29] MEDS: FENOFIBRATE NANOCRYSTALLIZED 145 MG TABLET PO SCH (09:29)
[2019-06-29] MEDS: CALCIUM CARBONATE 500 MG TABLET PO SCH (09:30)
[2019-06-29] MEDS: DIVALPROEX 125 MG CAP.SPRINK PO SCH ×2 (09:30→20:18)
[2019-06-29] MEDS: DONEPEZIL HCL 10 MG TABLET PO SCH (09:30)
[2019-06-29] MEDS: MULTIVITAMIN with MINERAL TABLET. PO SCH (09:30)
[2019-06-29] MEDS: CHOLECALCIFEROL (VITAMIN D3) 1,000 UNIT TABLET PO SCH (09:31)
[2019-06-29] MEDS: FLUTICASONE 50MCG/NASAL SPRAY 16GM BOTTLE. NS SCH (09:32)
--- NOTE | 2019-06-29 14:52 | NUR ---
Pt. attended all meals in dining room, and sat in day room with peers most of day. Did take a brief nap in her room after lunch. Requested her a.m. meds be crushed in pudding, which she then took easily. Compliant with assessment. Soft spoken, does not initiate conversation, but replies A & O X3 when questioned. Has blunted affect and poor eye contact.
[2019-06-29 15:41] VITALS: BP 130/80
[2019-06-29] MEDS: risperiDONE 2 MG TABLET. PO SCH (20:18)
--- NOTE | 2019-06-29 23:18 | PDOC ---
Exam Note: Hay Note: Please also refer to the separate dictated note~for this date of service dictated separately.~Patient seen individually. Discussed the patient with Nursing staff reviewed the chart.~Reviewed interim history and current functioning. Reviewed vital signs,~Labs/ Radiology~and current medications noted below. Continue current treatment with the changes noted in the dictated addendum note Assessment: Vital Signs/I&O: Vital Signs Date Time Temp Pulse Resp B/P (MAP) Pulse Ox O2 Delivery O2 Flow Rate FiO2 06/29/19 16:12 98 Room Air 06/29/19 15:41 98.0 89 20 130/80 (97) I & O 06/28/19 06/28/19 06/29/19 15:00 23:00 07:00 Intake Total 700 ml 460 ml Balance 700 ml 460 ml Labs: Laboratory Tests Test 06/29/19 07:13 Glucose (Fingerstick) 88 mg/dL (70-99) Current Medications: I have reviewed the current psychotropics carefully including drug interactions. Risk benefit ratio favors no change other than as noted in my dictated progress note. Diagnosis: Problems: (1) Schizoaffective disorder, bipolar type (2) Anxiety disorder (3) Major neurocognitive disorder (4) Major depressive disorder, recurrent episode (5) Depression (6) Schizoaffective disorder, depressive type DANIEL HUGHES MD Jun 29, 2019 23:17
--- NOTE | 2019-06-30 00:17 | NUR ---
Pt withdrawn to room, lying in bed at shift change. Pt calm but sad, depressed. Pt cooperative with assessment and compliant with medications administered whole.
[2019-06-30] MEDS: IPRATRPIUM/ALBUTEROL 0.5/2.5MG 3 ML NEBU. NEB SCH ×4 (05:42→19:56)
[2019-06-30 05:54] VITALS: BP 110/73
[2019-06-30] MEDS: LEVOTHYROXINE 75 MCG TABLET PO SCH (06:08)
[2019-06-30] MEDS: FENOFIBRATE NANOCRYSTALLIZED 145 MG TABLET PO SCH (08:11)
[2019-06-30] MEDS: buPROPion XL 300 MG TAB.ER.24H. PO SCH (08:11)
[2019-06-30] MEDS: CALCIUM CARBONATE 500 MG TABLET PO SCH (08:11)
[2019-06-30] MEDS: CHOLECALCIFEROL (VITAMIN D3) 1,000 UNIT TABLET PO SCH (08:11)
[2019-06-30] MEDS: metFORMIN 500 MG TABLET PO SCH ×2 (08:11→17:11)
[2019-06-30] MEDS: DIVALPROEX 125 MG CAP.SPRINK PO SCH ×2 (08:12→19:46)
[2019-06-30] MEDS: MULTIVITAMIN with MINERAL TABLET. PO SCH (08:12)
[2019-06-30] MEDS: DONEPEZIL HCL 10 MG TABLET PO SCH (08:13)
[2019-06-30] MEDS: POLYETHYLENE GLYCOL 3350 17 GM PACKET. PO SCH (08:13)
[2019-06-30 08:42] LABS: BASO % 1 % (0-3); EOS % 0 % (0-3); HEMATOCRIT 37.9 % (36.0-47.0); HEMOGLOBIN 12.3 g/dL (12.0-15.5); LYMPH % 25 % (24-48); MEAN CORPUSCULAR HEMOGLOBIN 30 pg (25-35); MEAN CORPUSCULAR HGB CONC 32 g/dL (31-37); MEAN CORPUSCULAR VOLUME 92 fL (79-100); MONO # 0.3 x10^3/uL (0.0-1.1); MONO % 8 % (0-9); NEUT # 2.6 x10^3uL (1.8-7.7); NEUT % 67 % (31-73); PLATELET COUNT 263 x10^3/uL (140-400); RED BLOOD COUNT 4.11 x10^6/uL (3.50-5.40); RED CELL DISTRIBUTION WIDTH 14.2 % (11.5-14.5); WHITE BLOOD COUNT 3.9 x10^3/uL (4.0-11.0)
[2019-06-30 09:03] LABS: ALBUMIN 2.9 g/dL (3.4-5.0); ALBUMIN/GLOBULIN RATIO 0.8 (1.0-1.7); ALK PHOS 31 U/L (46-116); ALT (SGPT) 25 U/L (14-59); ANION GAP 9 (6-14); AST (SGOT) 21 U/L (15-37); BLOOD UREA NITROGEN 16 mg/dL (7-20); BUN/CREATININE RATIO 20 (6-20); CALCIUM 8.9 mg/dL (8.5-10.1); CARBON DIOXIDE 29 mmol/L (21-32); CHLORIDE 105 mmol/L (98-107); CREATININE 0.8 mg/dL (0.6-1.0); GFR 73.7; GLUCOSE 97 mg/dL (70-99); POTASSIUM 3.9 mmol/L (3.5-5.1); SODIUM 143 mmol/L (136-145); TOTAL BILIRUBIN 0.2 mg/dL (0.2-1.0); TOTAL PROTEIN 6.5 g/dL (6.4-8.2)
[2019-06-30 09:12] LABS: VAL ACID 58 mcg/mL (50-100)
[2019-06-30] MEDS: FLUTICASONE 50MCG/NASAL SPRAY 16GM BOTTLE. NS SCH (09:39)
--- NOTE | 2019-06-30 12:11 | NUR ---
Slight improvement in affect today. Talking more to this nurse. Reading book in room during group. Visitor at lunch time. Eating well, calm and cooperative, requested meds be crushed in pudding in a.m.
[2019-06-30 15:44] VITALS: BP 132/87
[2019-06-30] MEDS: risperiDONE 0.5 MG TABLET. PO SCH (19:48)
--- NOTE | 2019-06-30 20:35 | PDOC ---
Exam Note: Hay Note: Please also refer to the separate dictated note~for this date of service dictated separately.~Patient seen individually. Discussed the patient with Nursing staff reviewed the chart.~Reviewed interim history and current functioning. Reviewed vital signs,~Labs/ Radiology~and current medications noted below. Continue current treatment with the changes noted in the dictated addendum note Assessment: Vital Signs/I&O: Vital Signs Date Time Temp Pulse Resp B/P (MAP) Pulse Ox O2 Delivery O2 Flow Rate FiO2 06/30/19 19:59 97 Room Air 06/30/19 15:44 98.0 92 16 132/87 (102) I & O 06/29/19 06/29/19 06/30/19 15:00 23:00 07:00 Intake Total 600 ml 240 ml 60 ml Balance 600 ml 240 ml 60 ml Labs: Laboratory Tests Test 06/30/19 07:29 06/30/19 08:05 06/30/19 16:56 Glucose (Fingerstick) 85 mg/dL (70-99) 103 mg/dL (70-99) H White Blood Count 3.9 x10^3/uL (4.0-11.0) L Red Blood Count 4.11 x10^6/uL (3.50-5.40) Hemoglobin 12.3 g/dL (12.0-15.5) Hematocrit 37.9 % (36.0-47.0) Mean Corpuscular Volume 92 fL (79-100) Mean Corpuscular Hemoglobin 30 pg (25-35) Mean Corpuscular Hemoglobin Concent 32 g/dL (31-37) Red Cell Distribution Width 14.2 % (11.5-14.5) Platelet Count 263 x10^3/uL (140-400) Neutrophils (%) (Auto) 67 % (31-73) Lymphocytes (%) (Auto) 25 % (24-48) Monocytes (%) (Auto) 8 % (0-9) Eosinophils (%) (Auto) 0 % (0-3) Basophils (%) (Auto) 1 % (0-3) Neutrophils # (Auto) 2.6 x10^3uL (1.8-7.7) Lymphocytes # (Auto) 1.0 x10^3/uL (1.0-4.8) Monocytes # (Auto) 0.3 x10^3/uL (0.0-1.1) Eosinophils # (Auto) 0.0 x10^3/uL (0.0-0.7) Basophils # (Auto) 0.0 x10^3/uL (0.0-0.2) Sodium Level 143 mmol/L (136-145) Potassium Level 3.9 mmol/L (3.5-5.1) Chloride Level 105 mmol/L (98-107) Carbon Dioxide Level 29 mmol/L (21-32) Anion Gap 9 (6-14) Blood Urea Nitrogen 16 mg/dL (7-20) Creatinine 0.8 mg/dL (0.6-1.0) Estimated GFR (Cockcroft-Gault) 73.7 BUN/Creatinine Ratio 20 (6-20) Glucose Level 97 mg/dL (70-99) Calcium Level 8.9 mg/dL (8.5-10.1) Total Bilirubin 0.2 mg/dL (0.2-1.0) Aspartate Amino Transferase (AST) 21 U/L (15-37) Alanine Aminotransferase (ALT) 25 U/L (14-59) Alkaline Phosphatase 31 U/L (46-116) L Total Protein 6.5 g/dL (6.4-8.2) Albumin 2.9 g/dL (3.4-5.0) L Albumin/Globulin Ratio 0.8 (1.0-1.7) L Valproic Acid Level 58 mcg/mL (50-100) Valproic Acid Last Dose Date 06/29/19 Valproic Acid Last Dose Time 2100 Current Medications: Meds: Current Medications Medications (Trade) Dose Ordered Sig/Sandra Route PRN Reason Start Time Stop Time Status Last Admin Dose Admin Risperidone (RisperDAL) 1.5 mg HS PO 06/30/19 21:00 06/30/19 19:48 I have reviewed the current psychotropics carefully including drug interactions. Risk benefit ratio favors no change other than as noted in my dictated progress note. Diagnosis: Problems: (1) Schizoaffective disorder, bipolar type (2) Anxiety disorder (3) Major neurocognitive disorder (4) Major depressive disorder, recurrent episode (5) Schizoaffective disorder, depressive type DANIEL HUGHES MD Jun 30, 2019 20:35
--- NOTE | 2019-06-30 21:36 | NUR ---
Nursing note: Assumed care of pt in the day room. She was watching a movie and was interactive with me. she is pleasant and compliant. Denies SI, no anxiety, no c/o pain.
[2019-07-01 05:26] VITALS: BP 123/86
[2019-07-01] MEDS: IPRATRPIUM/ALBUTEROL 0.5/2.5MG 3 ML NEBU. NEB SCH ×4 (05:28→23:16)
[2019-07-01] MEDS: LEVOTHYROXINE 75 MCG TABLET PO SCH (06:03)
[2019-07-01] MEDS: FLUTICASONE 50MCG/NASAL SPRAY 16GM BOTTLE. NS SCH (08:08)
[2019-07-01] MEDS: DIVALPROEX 125 MG CAP.SPRINK PO SCH ×2 (08:08→19:45)
[2019-07-01] MEDS: buPROPion XL 300 MG TAB.ER.24H. PO SCH (08:08)
[2019-07-01] MEDS: CHOLECALCIFEROL (VITAMIN D3) 1,000 UNIT TABLET PO SCH (08:08)
[2019-07-01] MEDS: FENOFIBRATE NANOCRYSTALLIZED 145 MG TABLET PO SCH (08:09)
[2019-07-01] MEDS: metFORMIN 500 MG TABLET PO SCH ×2 (08:09→17:07)
[2019-07-01] MEDS: DONEPEZIL HCL 10 MG TABLET PO SCH (08:09)
[2019-07-01] MEDS: MULTIVITAMIN with MINERAL TABLET. PO SCH (08:09)
[2019-07-01] MEDS: CALCIUM CARBONATE 500 MG TABLET PO SCH (08:09)
[2019-07-01] MEDS: POLYETHYLENE GLYCOL 3350 17 GM PACKET. PO SCH (08:10)
--- NOTE | 2019-07-01 09:54 | NUR ---
RAOUL was contacted by pt. sister, Nesha, who reports pt. daughter visited over the weekend and did not feel pt. was doing well. It's "something she is not saying." "She didn't act like she was happy to see her." Pt. was "not visiting." RAOUL contacted the doctor who postponed discharge to later in the week. RAOUL informed pt. sister, Nesha, and Nik, Printing Machinist at [facility], about the change in discharge plan.
--- NOTE | 2019-07-01 10:46 | NUR ---
Nursing note: Pt in dining room this morning for meds and assessment. She was compliant with meds crushed in pudding, per pt request. Pt continues to have a flat affect and states she is still depressed, although she says it is getting better and denies SI. Pt has been withdrawn, but sitting in the day room all morning.
[2019-07-01 16:21] VITALS: BP 114/81
[2019-07-01] MEDS: risperiDONE 0.5 MG TABLET. PO SCH (19:45)
--- NOTE | 2019-07-01 20:34 | PDOC ---
Exam Note: Hay Note: Please also refer to the separate dictated note~for this date of service dictated separately.~Patient seen individually. Discussed the patient with Nursing staff reviewed the chart.~Reviewed interim history and current functioning. Reviewed vital signs,~Labs/ Radiology~and current medications noted below. Continue current treatment with the changes noted in the dictated addendum note Assessment: Vital Signs/I&O: Vital Signs Date Time Temp Pulse Resp B/P (MAP) Pulse Ox O2 Delivery O2 Flow Rate FiO2 07/01/19 16:21 98.4 96 16 114/81 (92) 95 07/01/19 16:00 Room Air I & O 06/30/19 06/30/19 07/01/19 15:00 23:00 07:00 Intake Total 600 ml 600 ml Balance 600 ml 600 ml Labs: Laboratory Tests Test 07/01/19 07:33 Glucose (Fingerstick) 86 mg/dL (70-99) Current Medications: Meds: Current Medications Medications (Trade) Dose Ordered Sig/Sandra Route PRN Reason Start Time Stop Time Status Last Admin Dose Admin Risperidone (RisperDAL) 1.5 mg HS PO 06/30/19 21:00 07/01/19 19:45 I have reviewed the current psychotropics carefully including drug interactions. Risk benefit ratio favors no change other than as noted in my dictated progress note. Diagnosis: Problems: (1) Schizoaffective disorder, bipolar type (2) Anxiety disorder (3) Major neurocognitive disorder (4) Major depressive disorder, recurrent episode (5) Schizoaffective disorder, depressive type DANIEL HUGHES MD Jul 01, 2019 20:34
--- NOTE | 2019-07-01 21:04 | NUR ---
Nursing note: Assumed care of pt in the day room. She was calm and appropriate, denies SI, denies pain.
--- NOTE | 2019-07-01 22:54 | PN ---
DATE: 06/29/2019 PSYCHIATRIC PROGRESS NOTE This late entry service date of service 06/29/2019 covers the elements not covered in my initial note. SUBJECTIVE: I met with the patient in the evening of 06/29/2019. Overall, the patient has had a good day, coming out of the room more, reading a novel as I met with her in the evening and this was a mystery novel. She was able to tell me what the plot was. Compliant with medications. REVIEW OF SYSTEMS: No CV, , pulmonary, eye, ENT system symptoms on review. Reliability fair. MENTAL STATUS EXAM: Oriented to herself and situation. Speech moderate latency, often responses monosyllabic. Abstraction fair, computation impaired, language function intact, and attention span short. Mood and affect somewhat withdrawn. LABORATORY DATA: Reviewed. IMPRESSION: Unchanged from initial note. PLAN: No change from initial note. MAN Mihaela HUGHES MD DR: CLIFTON/daniel JOB#: [id number] / [id number]
[2019-07-02 05:09] VITALS: BP 104/73
[2019-07-02] MEDS: IPRATRPIUM/ALBUTEROL 0.5/2.5MG 3 ML NEBU. NEB SCH ×4 (05:27→23:43)
[2019-07-02] MEDS: LEVOTHYROXINE 75 MCG TABLET PO SCH (05:52)
[2019-07-02] MEDS: POLYETHYLENE GLYCOL 3350 17 GM PACKET. PO SCH (09:00)
[2019-07-02] MEDS: DIVALPROEX 125 MG CAP.SPRINK PO SCH ×2 (09:10→19:38)
[2019-07-02] MEDS: buPROPion XL 300 MG TAB.ER.24H. PO SCH (09:11)
[2019-07-02] MEDS: CHOLECALCIFEROL (VITAMIN D3) 1,000 UNIT TABLET PO SCH (09:11)
[2019-07-02] MEDS: FENOFIBRATE NANOCRYSTALLIZED 145 MG TABLET PO SCH (09:12)
[2019-07-02] MEDS: MULTIVITAMIN with MINERAL TABLET. PO SCH (09:12)
[2019-07-02] MEDS: CALCIUM CARBONATE 500 MG TABLET PO SCH (09:12)
[2019-07-02] MEDS: DONEPEZIL HCL 10 MG TABLET PO SCH (09:12)
[2019-07-02] MEDS: FLUTICASONE 50MCG/NASAL SPRAY 16GM BOTTLE. NS SCH (09:12)
[2019-07-02] MEDS: metFORMIN 500 MG TABLET PO SCH ×2 (09:12→17:11)
--- NOTE | 2019-07-02 10:46 | NUR ---
Nursing note: Pt was in room this morning for morning meds and assessment. She was compliant with taking her meds and cooperative with her assessment. She states that she is not feeling depressed this morning and continues to deny SI.
--- NOTE | 2019-07-02 11:13 | PN ---
DATE: 06/30/2019 PSYCHIATRIC PROGRESS NOTE This late entry, 06/30/2019, covers elements not covered in my initial note. SUBJECTIVE: I met with the patient in the evening of 06/30/2019. The patient slept 6-1/2 hours previous night. She remains somewhat withdrawn, but more animated than before, coming out for activities. REVIEW OF SYSTEMS: No CV, , pulmonary, eye system symptoms on review. MENTAL STATUS EXAM: Reasonably oriented. Speech moderate latency, often responses monosyllabic. Abstraction fair, computation impaired, language function intact, attention span short. Mood and affect withdrawn. LABORATORY DATA: Reviewed. IMPRESSION: Unchanged from initial note. PLAN: No change from initial note. MAN Mihaela HUGHES MD DR: CLIFTON/daniel JOB#: [id number] / [id number]
--- NOTE | 2019-07-02 11:15 | PN ---
DATE: 06/30/2019 PSYCHIATRIC PROGRESS NOTE This is a late entry, 06/30/2019. The patient continues to have a parkinsonian facial expression. She has no psychotic symptoms. We will reduce her Risperdal down from 2 mg at bedtime to 1.5 mg at bedtime. Continue Invega Sustenna and the rest of the psychotropics unchanged, but hopefully, the reduction of Risperdal would help reduce the parkinsonian side effect she is experiencing and I feel comfortable doing this since she has no overt psychotic symptoms. MAN Mihaela HUGHES MD DR: CLIFTON/daniel JOB#: [id number] / [id number]
--- NOTE | 2019-07-02 11:35 | PN ---
DATE: 06/28/2019 PSYCHIATRIC PROGRESS NOTE This late entry, 06/28, covers elements not covered in my initial note. SUBJECTIVE: I met with the patient evening of 06/28. Per NASIM Suarez, the patient slept 6-3/4 hours previous night. She has been somewhat withdrawn, depressed. Denies suicidal ideation. Denies hallucinations. REVIEW OF SYSTEMS: No CV, , pulmonary, eye, ENT system symptoms on review. MENTAL STATUS EXAM: Oriented to herself and situation. Speech, moderate latency, often responses monosyllabic. Abstraction fair, computation impaired, language function intact, attention span short. Mood and affect somewhat withdrawn. She has a parkinsonian facial affect; she is on Invega IM every month and 2.5 mg Risperdal, which probably contributes to it. There are no clear psychotic symptoms. LABORATORY DATA: Reviewed. IMPRESSION: Unchanged. PLAN: We will reduce the Risperdal down from 2.5 mg at bedtime to 2 mg at bedtime to help with the EPS and parkinsonian facial expression. Maintain Wellbutrin, Aricept, Invega IM, Depakote, all at current dosage. Depakote is being adjusted to reach therapeutic level. DANIEL HUGHES MD DR: CLIFTON/daniel JOB#: [id number] / [id number]
[2019-07-02 16:14] VITALS: BP 115/80
[2019-07-02] MEDS: risperiDONE 0.5 MG TABLET. PO SCH (19:39)
--- NOTE | 2019-07-02 20:08 | NUR ---
Nursing note: Assumed care of pt in the day room. She was watching tv and was not interacting with anyone. She is calm and compliant and denies SI and depression. No c/o pain. A&OX3
--- NOTE | 2019-07-02 20:38 | PDOC ---
Exam Note: Hay Note: Please also refer to the separate dictated note~for this date of service dictated separately.~Patient seen individually. Discussed the patient with Nursing staff reviewed the chart.~Reviewed interim history and current functioning. Reviewed vital signs,~Labs/ Radiology~and current medications noted below. Continue current treatment with the changes noted in the dictated addendum note Assessment: Vital Signs/I&O: Vital Signs Date Time Temp Pulse Resp B/P (MAP) Pulse Ox O2 Delivery O2 Flow Rate FiO2 07/02/19 16:20 98 Room Air 07/02/19 16:14 98.0 84 14 115/80 (92) I & O 07/01/19 07/01/19 07/02/19 15:00 23:00 07:00 Intake Total 600 ml 360 ml Balance 600 ml 360 ml Labs: Laboratory Tests Test 07/02/19 07:31 07/02/19 16:42 Glucose (Fingerstick) 86 mg/dL (70-99) 96 mg/dL (70-99) Current Medications: I have reviewed the current psychotropics carefully including drug interactions. Risk benefit ratio favors no change other than as noted in my dictated progress note. Diagnosis: Problems: (1) Schizoaffective disorder, bipolar type (2) Anxiety disorder (3) Major neurocognitive disorder (4) Major depressive disorder, recurrent episode (5) Schizoaffective disorder, depressive type DANIEL HUGHES MD Jul 02, 2019 20:38
[2019-07-03] MEDS: IPRATRPIUM/ALBUTEROL 0.5/2.5MG 3 ML NEBU. NEB SCH ×4 (05:10→19:58)
[2019-07-03 05:21] VITALS: BP 111/70
[2019-07-03] MEDS: LEVOTHYROXINE 75 MCG TABLET PO SCH (05:36)
[2019-07-03] MEDS: FLUTICASONE 50MCG/NASAL SPRAY 16GM BOTTLE. NS SCH (08:17)
[2019-07-03] MEDS: POLYETHYLENE GLYCOL 3350 17 GM PACKET. PO SCH (08:17)
[2019-07-03] MEDS: FENOFIBRATE NANOCRYSTALLIZED 145 MG TABLET PO SCH (08:17)
[2019-07-03] MEDS: DIVALPROEX 125 MG CAP.SPRINK PO SCH ×2 (08:17→19:32)
[2019-07-03] MEDS: DONEPEZIL HCL 10 MG TABLET PO SCH (08:18)
[2019-07-03] MEDS: metFORMIN 500 MG TABLET PO SCH ×2 (08:18→17:25)
[2019-07-03] MEDS: CHOLECALCIFEROL (VITAMIN D3) 1,000 UNIT TABLET PO SCH (08:18)
[2019-07-03] MEDS: CALCIUM CARBONATE 500 MG TABLET PO SCH (08:18)
[2019-07-03] MEDS: MULTIVITAMIN with MINERAL TABLET. PO SCH (08:18)
[2019-07-03] MEDS: buPROPion XL 300 MG TAB.ER.24H. PO SCH (08:18)
--- NOTE | 2019-07-03 10:56 | NUR ---
Patient was in the dining room this morning. A/Ox3 Patient was compliant with medications and assessment, requested her a.m. medications be crushed in chocolate pudding except Depakote. Patient denies SI, HI, and depression.
[2019-07-03 15:48] VITALS: BP 105/74
[2019-07-03] MEDS: risperiDONE 0.5 MG TABLET. PO SCH (19:33)
--- NOTE | 2019-07-03 20:43 | PDOC ---
Exam Note: Hay Note: Please also refer to the separate dictated note~for this date of service dictated separately.~Patient seen individually. Discussed the patient with Nursing staff reviewed the chart.~Reviewed interim history and current functioning. Reviewed vital signs,~Labs/ Radiology~and current medications noted below. Continue current treatment with the changes noted in the dictated addendum note Assessment: Vital Signs/I&O: Vital Signs Date Time Temp Pulse Resp B/P (MAP) Pulse Ox O2 Delivery O2 Flow Rate FiO2 07/03/19 20:01 94 Room Air 07/03/19 15:48 98.0 87 18 105/74 (84) I & O 07/02/19 07/02/19 07/03/19 15:00 23:00 07:00 Intake Total 480 ml 240 ml 120 ml Balance 480 ml 240 ml 120 ml Labs: Laboratory Tests Test 07/03/19 07:29 07/03/19 17:06 Glucose (Fingerstick) 82 mg/dL (70-99) 94 mg/dL (70-99) Current Medications: I have reviewed the current psychotropics carefully including drug interactions. Risk benefit ratio favors no change other than as noted in my dictated progress note. Diagnosis: Problems: (1) Schizoaffective disorder, bipolar type (2) Anxiety disorder (3) Major neurocognitive disorder (4) Major depressive disorder, recurrent episode (5) Schizoaffective disorder, depressive type (6) Depression DANIEL HUGHES MD Jul 03, 2019 20:43
--- NOTE | 2019-07-03 23:14 | NUR ---
Nursing note: Assumed care of pt in the day room. She was watching tv and keeping to herself. She is calm, reserved and compliant. Pt denies SI and depression. No c/o pain. A&OX3
--- NOTE | 2019-07-04 02:22 | PN ---
DATE: 07/01/2019 PSYCHIATRIC PROGRESS NOTE This late entry 07/01/2019 covers elements not covered in my initial note. SUBJECTIVE: I met with the patient evening of 07/01/2019. Per Daniela ROUSE, the patient slept 7-1/4 hours previous night. She has been flat, depressed, isolates to her room, but when encouraged to come out does come out for groups. No suicidal ideation, no hallucinations noted. I met with her in her room at length. Valproic acid level 3 was 58, therapeutic. When I questioned her directly, she states the hearing sounds in her ear are about the "same." REVIEW OF SYSTEMS: No CV, , pulmonary, eye system symptoms on review. MENTAL STATUS EXAM: Reasonably oriented, reading a novel initially when I met with her, this was a mystery novel, she was able to relate some details to me. Speech has some latency, coherent. Abstraction fair, computation impaired. Language function intact. Mood and affect withdrawn. LABORATORY DATA: Reviewed. IMPRESSION: Unchanged from initial note. PLAN: No change from initial note. DANIEL HUGHES MD DR: CLIFTON/daniel JOB#: [id number] / [id number]
--- NOTE | 2019-07-04 02:23 | PN ---
DATE: 07/02/2019 PSYCHIATRIC PROGRESS NOTE This late entry 07/02/2019 covers elements not covered in my initial note. SUBJECTIVE: I met with the patient evening of 07/02/2019. The patient slept 7 hours previous night. Per nursing report, the patient denies being depressed, compliant with medications, does come out to groups, rest of the time back in her room. I met with her in her room. REVIEW OF SYSTEMS: No CV, , pulmonary, eye system symptoms on review. MENTAL STATUS EXAM: The patient is reasonably oriented. Speech, moderate latency, often responses monosyllabic. Abstraction fair, computation impaired. Language function intact. Mood and affect withdrawn. LABORATORY DATA: Reviewed. IMPRESSION: Unchanged from initial note. PLAN: No change from initial note. DANIEL HUGHES MD DR: CLIFTON/daniel JOB#: [id number] / [id number]
[2019-07-04] MEDS: IPRATRPIUM/ALBUTEROL 0.5/2.5MG 3 ML NEBU. NEB SCH ×4 (05:19→20:05)
[2019-07-04 05:58] VITALS: BP 107/72
[2019-07-04] MEDS: LEVOTHYROXINE 75 MCG TABLET PO SCH (06:05)
[2019-07-04] MEDS: buPROPion XL 300 MG TAB.ER.24H. PO SCH (08:31)
[2019-07-04] MEDS: metFORMIN 500 MG TABLET PO SCH ×2 (08:31→17:06)
[2019-07-04] MEDS: DIVALPROEX 125 MG CAP.SPRINK PO SCH ×2 (08:31→19:43)
[2019-07-04] MEDS: CALCIUM CARBONATE 500 MG TABLET PO SCH (08:31)
[2019-07-04] MEDS: CHOLECALCIFEROL (VITAMIN D3) 1,000 UNIT TABLET PO SCH (08:31)
[2019-07-04] MEDS: DONEPEZIL HCL 10 MG TABLET PO SCH (08:32)
[2019-07-04] MEDS: FLUTICASONE 50MCG/NASAL SPRAY 16GM BOTTLE. NS SCH (08:32)
[2019-07-04] MEDS: POLYETHYLENE GLYCOL 3350 17 GM PACKET. PO SCH (08:32)
[2019-07-04] MEDS: MULTIVITAMIN with MINERAL TABLET. PO SCH (08:32)
[2019-07-04] MEDS: FENOFIBRATE NANOCRYSTALLIZED 145 MG TABLET PO SCH (08:32)
--- NOTE | 2019-07-04 09:36 | NUR ---
WEEKLY ACTIVITY THERAPY NOTE Date of Admission: 06/12/2019 Date of AT Assessment: 06/14/2019 Goal aimed: to increase socialization and leisure engagement Initial Goal: Pt. will engage in three Activity Therapy groups or individual sessions per week. Goal changed 06/20: Pt. will participate in at least one Activity Therapy group per day. Weekly progress towards goal: achieved Group participation level: moderate to full Weekly highlights: great recalling music education director of [employer] on Monday,- shouted out guesses smiled when complimented by others, accepted high five from staff and problem solving with her 24 hour clock activity, made pillow independently Behaviors observed: often around group, reserved but increased emotions throughout the week- more smiling and slightly more eye contact Plan: no change to goal Beneficial adaptations: direct prompting at times, positive response to craft activities
--- NOTE | 2019-07-04 11:15 | NUR ---
RAOUL left ms. for pt. sister, Nesha, to discuss pt. progress and discharge plan. RAOUL spoke to Nik, Irrigation Teacher at [facility], regrading pt. progress and discharge scheduled for 07/09/2019. Addendum: 07/05/19 at 1018 by KATERIN SILVEIRA RAOUL spoke to pt. sister Nesha, regarding pt. progress and discharge scheduled for 07/09/2019. Nesha suggested pt. may need some type of task to keep her mind busy when she returns to her facility. RAOUL will pass this information on to Nik at [facility], to see if there is something pt. could do.
--- NOTE | 2019-07-04 11:16 | NUR ---
WEEKLY NOTE Pt. is eating 100% of meals and sleeping an average of 7 1/2 hours. Pt. is pleasant and compliant. Pt. is sometimes withdrawn but when invited to attend groups pt. will participate. Pt. denies SI. Medications continue to be adjusted and monitored. Pt. is scheduled to discharge on 07/09/2019 back to [facility].
[2019-07-04 16:18] VITALS: BP 113/81
[2019-07-04] MEDS: risperiDONE 0.5 MG TABLET. PO SCH (19:43)
--- NOTE | 2019-07-04 20:09 | NUR ---
patient was calm, cooperative, and pleasant throughout this shift. She spent most of her time in the day room but was not very participatory. Will continue to monitor.
--- NOTE | 2019-07-04 20:54 | PDOC ---
Exam Note: Hay Note: Please also refer to the separate dictated note~for this date of service dictated separately.~Patient seen individually. Discussed the patient with Nursing staff reviewed the chart.~Reviewed interim history and current functioning. Reviewed vital signs,~Labs/ Radiology~and current medications noted below. Continue current treatment with the changes noted in the dictated addendum note Assessment: Vital Signs/I&O: Vital Signs Date Time Temp Pulse Resp B/P (MAP) Pulse Ox O2 Delivery O2 Flow Rate FiO2 07/04/19 20:06 96 Room Air 07/04/19 16:18 98.7 93 14 113/81 (92) I & O 07/03/19 07/03/19 07/04/19 15:00 23:00 07:00 Intake Total 720 ml 360 ml Balance 720 ml 360 ml Labs: Laboratory Tests Test 07/04/19 07:50 07/04/19 17:14 Glucose (Fingerstick) 95 mg/dL (70-99) 124 mg/dL (70-99) H Current Medications: Meds: Current Medications Medications (Trade) Dose Ordered Sig/Sandra Route PRN Reason Start Time Stop Time Status Last Admin Dose Admin Risperidone (RisperDAL) 1 mg HS PO 07/04/19 21:00 07/04/19 19:43 I have reviewed the current psychotropics carefully including drug interactions. Risk benefit ratio favors no change other than as noted in my dictated progress note. Diagnosis: Problems: (1) Schizoaffective disorder, bipolar type (2) Anxiety disorder (3) Major neurocognitive disorder (4) Major depressive disorder, recurrent episode (5) Schizoaffective disorder, depressive type DANIEL HUGHES MD Jul 04, 2019 20:54
--- NOTE | 2019-07-04 23:09 | NUR ---
Last evening pt sat quietly in day room. When approached she was pleasant and cooperative but did not initiate conversation. Meds were taken whole without difficulty and no behaviors observed.
[2019-07-05] MEDS: IPRATRPIUM/ALBUTEROL 0.5/2.5MG 3 ML NEBU. NEB SCH ×4 (05:04→20:00)
[2019-07-05] MEDS: LEVOTHYROXINE 75 MCG TABLET PO SCH (05:44)
[2019-07-05 06:01] VITALS: BP 106/71
[2019-07-05] MEDS: POLYETHYLENE GLYCOL 3350 17 GM PACKET. PO SCH (09:27)
[2019-07-05] MEDS: CHOLECALCIFEROL (VITAMIN D3) 1,000 UNIT TABLET PO SCH (09:28)
[2019-07-05] MEDS: FENOFIBRATE NANOCRYSTALLIZED 145 MG TABLET PO SCH (09:28)
[2019-07-05] MEDS: DIVALPROEX 125 MG CAP.SPRINK PO SCH ×2 (09:28→20:41)
[2019-07-05] MEDS: metFORMIN 500 MG TABLET PO SCH ×2 (09:28→17:08)
[2019-07-05] MEDS: CALCIUM CARBONATE 500 MG TABLET PO SCH (09:28)
[2019-07-05] MEDS: DONEPEZIL HCL 10 MG TABLET PO SCH (09:28)
[2019-07-05] MEDS: MULTIVITAMIN with MINERAL TABLET. PO SCH (09:28)
[2019-07-05] MEDS: FLUTICASONE 50MCG/NASAL SPRAY 16GM BOTTLE. NS SCH (09:29)
[2019-07-05] MEDS: buPROPion XL 300 MG TAB.ER.24H. PO SCH (09:29)
[2019-07-05 16:02] VITALS: BP 118/82
--- NOTE | 2019-07-05 19:24 | NUR ---
Patient was calm, cooperative, flat, and pleasant throughout this shift. She spent most of her time in the day room but was not participatory with groups. Will continue to monitor.
--- NOTE | 2019-07-05 20:26 | PDOC ---
Exam Note: Hay Note: Please also refer to the separate dictated note~for this date of service dictated separately.~Patient seen individually. Discussed the patient with Nursing staff reviewed the chart.~Reviewed interim history and current functioning. Reviewed vital signs,~Labs/ Radiology~and current medications noted below. Continue current treatment with the changes noted in the dictated addendum note Assessment: Vital Signs/I&O: Vital Signs Date Time Temp Pulse Resp B/P (MAP) Pulse Ox O2 Delivery O2 Flow Rate FiO2 07/05/19 16:47 Room Air 07/05/19 16:02 98.0 78 16 118/82 (94) 97 I & O 07/04/19 07/04/19 07/05/19 15:00 23:00 07:00 Intake Total 480 ml 240 ml 120 ml Balance 480 ml 240 ml 120 ml Labs: Laboratory Tests Test 07/05/19 07:29 Glucose (Fingerstick) 89 mg/dL (70-99) Current Medications: Meds: Current Medications Medications (Trade) Dose Ordered Sig/Sandra Route PRN Reason Start Time Stop Time Status Last Admin Dose Admin Risperidone (RisperDAL) 1 mg HS PO 07/04/19 21:00 07/04/19 19:43 I have reviewed the current psychotropics carefully including drug interactions. Risk benefit ratio favors no change other than as noted in my dictated progress note. Diagnosis: Problems: (1) Schizoaffective disorder, bipolar type (2) Anxiety disorder (3) Major neurocognitive disorder (4) Major depressive disorder, recurrent episode (5) Schizoaffective disorder, depressive type DANIEL HUGHES MD Jul 05, 2019 20:26
[2019-07-05] MEDS: risperiDONE 0.5 MG TABLET. PO SCH (20:41)
--- NOTE | 2019-07-06 04:05 | PN ---
DATE: 07/03/2019 PSYCHIATRIC PROGRESS NOTE This late entry 07/03/2019 covers elements not covered in my initial note. SUBJECTIVE: I met with the patient evening of 07/03/2019. The patient slept 7 hours previous night per Mindy ROUSE. She has been withdrawn to her room. No suicidal ideation. Alert, oriented x 3, does go to the dining room for meals, comes out to the day room for activities. REVIEW OF SYSTEMS: No CV, , pulmonary, eye system symptoms on review. MENTAL STATUS EXAM: The patient is reasonably oriented. Speech has some latency, often responses monosyllabic. Abstraction fair, computation impaired, language function intact, attention span short. Mood and affect withdrawn, but no active psychotic symptoms. LABORATORY DATA: Reviewed. IMPRESSION: Unchanged from initial note. PLAN: No change from initial note. MAN Mihaela HUGHES MD DR: CLIFTON/daniel JOB#: [id number] / [id number]
--- NOTE | 2019-07-06 04:07 | PN ---
DATE: 07/04/2019 PSYCHIATRIC PROGRESS NOTE This late entry 07/04/2019 covers elements not covered in my initial note. SUBJECTIVE: I met with the patient in the evening and staffed at a treatment team meeting with the entire team in the morning. The patient slept 7 hours previous night, somewhat flat, withdrawn, appetite 100%. No active psychotic symptoms noted. REVIEW OF SYSTEMS: No CV, , pulmonary, eye, ENT system symptoms on review. MENTAL STATUS EXAMINATION: The patient is reasonably oriented. Speech has some latency, often responses monosyllabic. Abstraction fair, computation impaired, language function intact. Mood and affect withdrawn, but a little more animated as the Risperdal has been reduced. LABORATORY DATA: Reviewed. IMPRESSION: Unchanged from initial note. PLAN: In the absence of psychotic symptoms and the fact she is already on Invega Sustenna IM monthly, we will go ahead and drop the oral Risperdal from 1.5 mg at bedtime to 1 mg at bedtime. Rest unchanged for now. DANIEL HUGHES MD DR: CLIFTON/daniel JOB#: [id number] / [id number]
--- NOTE | 2019-07-06 04:31 | NUR ---
Pt restless, repetitive, compulsive and delusional. Pt expressed that when she is angry, it causes thunder storms outside. She is worried about her clothes, purse and her teeth. She repeatedly asked to leave tonight or tomorrow to go home during the first half of the shift. She then switched back and forth wanting to leave vs. not wanting to leave during the second half of the shift. Pt struggled to sleep all night and requests sleep medication for following nights. Addendum: 07/06/19 at 0439 by SANTA LEE RN wrong pt
--- NOTE | 2019-07-06 04:39 | NUR ---
Pt pleasant, cooperative and withdrawn. Took meds without complaint; slept most of the night. Will continue to monitor.
[2019-07-06 05:35] VITALS: BP 120/76
[2019-07-06] MEDS: LEVOTHYROXINE 75 MCG TABLET PO SCH (05:56)
[2019-07-06] MEDS: IPRATRPIUM/ALBUTEROL 0.5/2.5MG 3 ML NEBU. NEB SCH ×3 (06:01→17:17)
[2019-07-06] MEDS: POLYETHYLENE GLYCOL 3350 17 GM PACKET. PO SCH (07:57)
[2019-07-06] MEDS: DIVALPROEX 125 MG CAP.SPRINK PO SCH ×2 (07:57→20:50)
[2019-07-06] MEDS: buPROPion XL 300 MG TAB.ER.24H. PO SCH (07:58)
[2019-07-06] MEDS: metFORMIN 500 MG TABLET PO SCH ×2 (07:58→17:28)
[2019-07-06] MEDS: FENOFIBRATE NANOCRYSTALLIZED 145 MG TABLET PO SCH (07:58)
[2019-07-06] MEDS: CHOLECALCIFEROL (VITAMIN D3) 1,000 UNIT TABLET PO SCH (07:58)
[2019-07-06] MEDS: MULTIVITAMIN with MINERAL TABLET. PO SCH (07:58)
[2019-07-06] MEDS: CALCIUM CARBONATE 500 MG TABLET PO SCH (07:58)
[2019-07-06] MEDS: FLUTICASONE 50MCG/NASAL SPRAY 16GM BOTTLE. NS SCH (07:59)
[2019-07-06] MEDS: DONEPEZIL HCL 10 MG TABLET PO SCH (07:59)
[2019-07-06 15:48] VITALS: BP 105/72
--- NOTE | 2019-07-06 18:48 | NUR ---
Patient was calm, cooperative, flat, and pleasant throughout this shift. She spent most of the morning in the day room but was not participatory with groups; she was withdrawn to her room after lunch. Will continue to monitor.
[2019-07-06] MEDS: risperiDONE 0.5 MG TABLET. PO SCH (20:49)
[2019-07-07] MEDS: IPRATRPIUM/ALBUTEROL 0.5/2.5MG 3 ML NEBU. NEB SCH ×3 (04:46→16:12)
[2019-07-07] MEDS: LEVOTHYROXINE 75 MCG TABLET PO SCH (05:39)
[2019-07-07 06:02] VITALS: BP 115/78
[2019-07-07] MEDS: POLYETHYLENE GLYCOL 3350 17 GM PACKET. PO SCH (08:05)
[2019-07-07] MEDS: metFORMIN 500 MG TABLET PO SCH ×2 (08:06→17:14)
[2019-07-07] MEDS: DONEPEZIL HCL 10 MG TABLET PO SCH (08:06)
[2019-07-07] MEDS: CALCIUM CARBONATE 500 MG TABLET PO SCH (08:06)
[2019-07-07] MEDS: buPROPion XL 300 MG TAB.ER.24H. PO SCH (08:06)
[2019-07-07] MEDS: DIVALPROEX 125 MG CAP.SPRINK PO SCH ×2 (08:06→20:35)
[2019-07-07] MEDS: MULTIVITAMIN with MINERAL TABLET. PO SCH (08:06)
[2019-07-07] MEDS: CHOLECALCIFEROL (VITAMIN D3) 1,000 UNIT TABLET PO SCH (08:06)
[2019-07-07] MEDS: FENOFIBRATE NANOCRYSTALLIZED 145 MG TABLET PO SCH (08:06)
[2019-07-07] MEDS: FLUTICASONE 50MCG/NASAL SPRAY 16GM BOTTLE. NS SCH (08:07)
[2019-07-07 16:13] VITALS: BP 125/85
[2019-07-07] MEDS: risperiDONE 0.5 MG TABLET. PO SCH (20:35)
--- NOTE | 2019-07-07 21:53 | PDOC ---
Exam Note: Hay Note: This is a late entry for DOS 07/06/2019. Please also refer to the separate dictated note~for this date of service dictated separately.~Patient seen individually. Discussed the patient with Nursing staff reviewed the chart.~Reviewed interim history and current functioning. Reviewed vital signs,~Labs/ Radiology~and current medications noted below. Continue current treatment with the changes noted in the dictated addendum note Assessment: Vital Signs/I&O: Vital Signs Date Time Temp Pulse Resp B/P (MAP) Pulse Ox O2 Delivery O2 Flow Rate FiO2 07/07/19 21:30 98 Room Air 07/07/19 16:13 97.4 81 18 125/85 (98) I & O 07/06/19 07/06/19 07/07/19 15:00 23:00 07:00 Intake Total 600 ml 240 ml 240 ml Balance 600 ml 240 ml 240 ml Labs: Laboratory Tests Test 07/07/19 07:37 Glucose (Fingerstick) 91 mg/dL (70-99) Current Medications: I have reviewed the current psychotropics carefully including drug interactions. Risk benefit ratio favors no change other than as noted in my dictated progress note. Diagnosis: Problems: (1) Schizoaffective disorder, bipolar type (2) Anxiety disorder (3) Major neurocognitive disorder (4) Major depressive disorder, recurrent episode (5) Schizoaffective disorder, depressive type DANIEL HUGHES MD Jul 07, 2019 21:53
--- NOTE | 2019-07-07 23:44 | NUR ---
Nsg Note: Patient was in her room sleeping at time of medication administration and assessments. Patient was calm, cooperative, and compliant, withdrawn, hypoverbal. No other notable behaviors at this time.
[2019-07-08] MEDS: LEVOTHYROXINE 75 MCG TABLET PO SCH (05:34)
[2019-07-08 05:55] VITALS: BP 105/72
[2019-07-08] MEDS: FLUTICASONE 50MCG/NASAL SPRAY 16GM BOTTLE. NS SCH (08:14)
[2019-07-08] MEDS: POLYETHYLENE GLYCOL 3350 17 GM PACKET. PO SCH (08:14)
[2019-07-08] MEDS: metFORMIN 500 MG TABLET PO SCH ×2 (08:14→16:56)
[2019-07-08] MEDS: CALCIUM CARBONATE 500 MG TABLET PO SCH (08:14)
[2019-07-08] MEDS: MULTIVITAMIN with MINERAL TABLET. PO SCH (08:15)
[2019-07-08] MEDS: DONEPEZIL HCL 10 MG TABLET PO SCH (08:15)
[2019-07-08] MEDS: DIVALPROEX 125 MG CAP.SPRINK PO SCH ×2 (08:15→20:44)
[2019-07-08] MEDS: buPROPion XL 300 MG TAB.ER.24H. PO SCH (08:15)
[2019-07-08] MEDS: CHOLECALCIFEROL (VITAMIN D3) 1,000 UNIT TABLET PO SCH (08:15)
[2019-07-08] MEDS: FENOFIBRATE NANOCRYSTALLIZED 145 MG TABLET PO SCH (08:15)
[2019-07-08] MEDS: IPRATRPIUM/ALBUTEROL 0.5/2.5MG 3 ML NEBU. NEB SCH ×3 (10:18→23:00)
--- NOTE | 2019-07-08 11:15 | NUR ---
RAOUL faxed updated pt. paperwork to BETITO Zaragoza at [facility], and left a message for Tamica, Project Specialist at [facility], for a vegetable picker time.
--- NOTE | 2019-07-08 11:36 | NUR ---
[facility] Social Work Discharge Planning Form Patient Name PRO ROMERO Admit Date: 06/12/2019 DISCHARGE PLAN Discharge Destination: [facility] Care Assessment: NA Level II Assessment: NA Transportation: [facility] to transport pt. on 07/09/2019 pickle maker time TBD. Special Instructions/Notes: Please fax discharge paperwork and medication list to [phone]. DISCHARGE TO FACILITY Facility: [facility] Address: [facility] [id number] [place] [address] Contact Name: BETITO Zaragoza Contact Name: Tamica, [employer] Blind Maker PCP: Dr. Faust Psychiatrist: Dr. Hi Addendum: 07/09/19 at 0858 by KATERIN SILVEIRA Pt. will discharge on 07/10/2019 at 11:00 a.m.
--- NOTE | 2019-07-08 12:15 | PN ---
DATE: 07/05/2019 PSYCHIATRIC PROGRESS NOTE This late entry 07/05/2019 covers elements not covered in my initial note. SUBJECTIVE: I met with the patient evening of 07/05/2019. Per NASIM Crowder, the patient was quite pleasant, compliant in the evening, slept 6-3/4 hours previous night. She denies any increase in the noises that she hears in her ear. Denies any active auditory hallucinations despite reduction of the Risperdal. REVIEW OF SYSTEMS: No CV, , pulmonary, eye system symptoms on review. MENTAL STATUS EXAM: The patient is reasonably oriented. Speech has some latency, often responses monosyllabic. Abstraction fair, computation impaired, language function intact, attention span short. Mood and affect somewhat withdrawn, but less so than before. LABORATORY DATA: Reviewed. IMPRESSION: Unchanged from initial note. PLAN: No change from initial note. We will give it another day and then consider reducing the Risperdal further. DANIEL HUGHES MD DR: CLIFTON/daniel JOB#: [id number] / [id number]
[2019-07-08 16:04] VITALS: BP 110/79
--- NOTE | 2019-07-08 20:25 | PDOC ---
Exam Note: Hay Note: Please also refer to the separate dictated note~for this date of service dictated separately.~Patient seen individually. Discussed the patient with Nursing staff reviewed the chart.~Reviewed interim history and current functioning. Reviewed vital signs,~Labs/ Radiology~and current medications noted below. Continue current treatment with the changes noted in the dictated addendum note Assessment: Vital Signs/I&O: Vital Signs Date Time Temp Pulse Resp B/P (MAP) Pulse Ox O2 Delivery O2 Flow Rate FiO2 07/08/19 17:21 97 Room Air 07/08/19 16:04 98.3 86 16 110/79 (89) I & O 07/07/19 07/07/19 07/08/19 14:59 22:59 06:59 Intake Total 840 ml 580 ml Balance 840 ml 580 ml Labs: Laboratory Tests Test 07/08/19 07:57 Glucose (Fingerstick) 83 mg/dL (70-99) Current Medications: I have reviewed the current psychotropics carefully including drug interactions. Risk benefit ratio favors no change other than as noted in my dictated progress note. Diagnosis: Problems: (1) Schizoaffective disorder, bipolar type (2) Anxiety disorder (3) Major neurocognitive disorder (4) Major depressive disorder, recurrent episode (5) Depression (6) Schizoaffective disorder, depressive type DANIEL HUGHES MD Jul 08, 2019 20:25
[2019-07-08] MEDS: risperiDONE 0.5 MG TABLET. PO SCH (20:44)
[2019-07-08] MEDS ORDERED: traZODone 50 MG TABLET. PO PRN (23:00)
[2019-07-08] MEDS ORDERED: ACET325T21 PO (23:13)
[2019-07-08] MEDS ORDERED: DIVA500T2 PO (23:14)
[2019-07-08] MEDS ORDERED: DIVA-53 PO (23:15)
[2019-07-08] MEDS ORDERED: IPRA3AMP29 NEB (23:22)
[2019-07-08] MEDS ORDERED: MAG-95 PO (23:23)
[2019-07-08] MEDS ORDERED: MAGN2400 PO (23:25)
[2019-07-08] MEDS ORDERED: METH57CR17 TP (23:25)
[2019-07-08] MEDS ORDERED: PALI234D IM (23:27)
[2019-07-08] MEDS ORDERED: RISP0.5T10 PO (23:28)
--- NOTE | 2019-07-09 00:58 | NUR ---
Nsg Note: Patient in day room at time of medication administration and assessments. Patient was calm, compliant and cooperative, hypoverbal. Discharge prepped anticipating D/C tomorrow. No other notable behaviors
--- NOTE | 2019-07-09 03:20 | PN ---
DATE: 07/06/2019 PSYCHIATRIC PROGRESS NOTE This late entry 07/06/2019 covers the elements not covered in my initial note. SUBJECTIVE: I met with the patient in the evening of 07/06/2019. The patient slept 7-1/4 hours previous night. She remains somewhat withdrawn, but there is no increase in psychotic symptoms since we have reduced the oral Risperdal. REVIEW OF SYSTEMS: No CV, , pulmonary, eye system symptoms on review. She is coming out more to the room. MENTAL STATUS EXAM: Reasonably oriented. Speech moderate latency, often responses monosyllabic. Abstraction fair, computation impaired. Mood and affect still withdrawn, but improved. LABORATORY DATA: Reviewed. IMPRESSION: Unchanged from initial note. PLAN: Reduce Risperdal from 1 mg at bedtime down to 0.5 mg p.o. at bedtime. Continue rest unchanged. MAN Mihaela HUGHES MD DR: CLIFTON/daniel JOB#: [id number] / [id number]
--- NOTE | 2019-07-09 03:21 | PN ---
DATE: 07/07/2019 PSYCHIATRIC PROGRESS NOTE This late entry 07/07/2019 covers elements not covered in my initial note. SUBJECTIVE: I met with the patient evening of 07/07/2019. The patient remains somewhat withdrawn, slept 6-1/2 hours previous night. No further increase in hallucinations despite reduction of Risperdal oral. REVIEW OF SYSTEMS: No CV, , pulmonary, eye system symptoms on review. MENTAL STATUS EXAM: Reasonably oriented. Speech has some latency, often responses monosyllabic, coherent. Abstraction fair, computation impaired, language function intact. Mood and affect still withdrawn, but improved. LABORATORY DATA: Reviewed. IMPRESSION: Unchanged from initial note. PLAN: No change from initial note. MAN Mihaela HUGHES MD DR: CLIFTON/daniel JOB#: [id number] / [id number]
[2019-07-09 05:06] VITALS: BP 111/76
[2019-07-09] MEDS: LEVOTHYROXINE 75 MCG TABLET PO SCH (05:24)
[2019-07-09] MEDS: IPRATRPIUM/ALBUTEROL 0.5/2.5MG 3 ML NEBU. NEB SCH ×4 (06:19→19:53)
--- NOTE | 2019-07-09 08:58 | NUR ---
RAOUL contacted pt. Nesha pabon, and Nik, Lithopress Operator at [facility], to let them know discharge is postponed until 07/10/2019. Addendum: 07/10/19 at 1059 by KATERIN SILVEIRA RAOUL contacted pt. Nesha pabon, and Nik Lithopress Operator [facility], to let them know discharge is postponed until 07/12/2019.
[2019-07-09] MEDS: FLUTICASONE 50MCG/NASAL SPRAY 16GM BOTTLE. NS SCH (09:15)
[2019-07-09] MEDS: metFORMIN 500 MG TABLET PO SCH ×2 (09:15→17:18)
[2019-07-09] MEDS: DONEPEZIL HCL 10 MG TABLET PO SCH (09:16)
[2019-07-09] MEDS: FENOFIBRATE NANOCRYSTALLIZED 145 MG TABLET PO SCH (09:17)
[2019-07-09] MEDS: POLYETHYLENE GLYCOL 3350 17 GM PACKET. PO SCH (09:17)
[2019-07-09] MEDS: CHOLECALCIFEROL (VITAMIN D3) 1,000 UNIT TABLET PO SCH (09:17)
[2019-07-09] MEDS: buPROPion XL 300 MG TAB.ER.24H. PO SCH (09:17)
[2019-07-09] MEDS: CALCIUM CARBONATE 500 MG TABLET PO SCH (09:17)
[2019-07-09] MEDS: MULTIVITAMIN with MINERAL TABLET. PO SCH (09:17)
[2019-07-09] MEDS: DIVALPROEX 125 MG CAP.SPRINK PO SCH ×2 (09:17→20:11)
--- NOTE | 2019-07-09 12:07 | NUR ---
Patient was in the dayroom room, took medications, allowed for morning assessment. Patient was withdrawn to herself, was sitting in group quietly. Patient's discharge has been moved to tomorrow. No agitation noted, patient denies pain. Will continue to monitor.
[2019-07-09 15:49] VITALS: BP 117/81
[2019-07-09] MEDS: traZODone 50 MG TABLET. PO SCH (20:11)
--- NOTE | 2019-07-09 20:48 | PDOC ---
Exam Note: Hay Note: Please also refer to the separate dictated note~for this date of service dictated separately.~Patient seen individually. Discussed the patient with Nursing staff reviewed the chart.~Reviewed interim history and current functioning. Reviewed vital signs,~Labs/ Radiology~and current medications noted below. Continue current treatment with the changes noted in the dictated addendum note Assessment: Vital Signs/I&O: Vital Signs Date Time Temp Pulse Resp B/P (MAP) Pulse Ox O2 Delivery O2 Flow Rate FiO2 07/09/19 19:54 94 Room Air 07/09/19 15:49 97.9 80 16 117/81 (93) I & O 07/08/19 07/08/19 07/09/19 15:00 23:00 07:00 Intake Total 480 ml 120 ml 120 ml Balance 480 ml 120 ml 120 ml Labs: Laboratory Tests Test 07/09/19 07:27 Glucose (Fingerstick) 89 mg/dL (70-99) Current Medications: Meds: Current Medications Medications (Trade) Dose Ordered Sig/Sandra Route PRN Reason Start Time Stop Time Status Last Admin Dose Admin Trazodone HCl (Desyrel) 50 mg QHS PO 07/09/19 21:00 07/09/19 20:11 I have reviewed the current psychotropics carefully including drug interactions. Risk benefit ratio favors no change other than as noted in my dictated progress note. Diagnosis: Problems: (1) Schizoaffective disorder, bipolar type (2) Anxiety disorder (3) Major neurocognitive disorder (4) Major depressive disorder, recurrent episode (5) Depression (6) Schizoaffective disorder, depressive type DANIEL HUGHES MD Jul 09, 2019 20:48
--- NOTE | 2019-07-10 00:27 | NUR ---
Pt sitting quietly in the day room at shift change. Pt calm, pleasant when approached but mostly withdrawn to herself. Pt cooperative with assessment and compliant with medications.
[2019-07-10] MEDS ORDERED: TRAZ-120 PO ×2 (02:12→02:13)
[2019-07-10] MEDS ORDERED: DIVA125C2 PO ×2 (02:16)
[2019-07-10] MEDS: IPRATRPIUM/ALBUTEROL 0.5/2.5MG 3 ML NEBU. NEB SCH ×3 (05:16→15:47)
[2019-07-10 05:53] VITALS: BP 95/63
[2019-07-10] MEDS: LEVOTHYROXINE 75 MCG TABLET PO SCH (06:03)
[2019-07-10 08:10] LABS: BASO % 1 % (0-3); EOS % 0 % (0-3); HEMATOCRIT 33.8 % (36.0-47.0); HEMOGLOBIN 11.2 g/dL (12.0-15.5); LYMPH # 1.2 x10^3/uL (1.0-4.8); LYMPH % 25 % (24-48); MEAN CORPUSCULAR HEMOGLOBIN 30 pg (25-35); MEAN CORPUSCULAR HGB CONC 33 g/dL (31-37); MEAN CORPUSCULAR VOLUME 91 fL (79-100); MONO # 0.5 x10^3/uL (0.0-1.1); MONO % 10 % (0-9); NEUT # 3.2 x10^3uL (1.8-7.7); NEUT % 65 % (31-73); PLATELET COUNT 243 x10^3/uL (140-400); RED CELL DISTRIBUTION WIDTH 14.2 % (11.5-14.5)
[2019-07-10 08:20] LABS: ALBUMIN 2.3 g/dL (3.4-5.0); ALBUMIN/GLOBULIN RATIO 0.7 (1.0-1.7); CALCIUM 8.2 mg/dL (8.5-10.1); CREATININE 0.7 mg/dL (0.6-1.0); GFR 85.9; MAGNESIUM 1.6 mg/dL (1.8-2.4); TOTAL BILIRUBIN 0.2 mg/dL (0.2-1.0); TOTAL PROTEIN 5.6 g/dL (6.4-8.2)
[2019-07-10] MEDS: FLUTICASONE 50MCG/NASAL SPRAY 16GM BOTTLE. NS SCH (08:26)
[2019-07-10] MEDS: FENOFIBRATE NANOCRYSTALLIZED 145 MG TABLET PO SCH (08:26)
[2019-07-10] MEDS: CALCIUM CARBONATE 500 MG TABLET PO SCH (08:27)
[2019-07-10] MEDS: metFORMIN 500 MG TABLET PO SCH ×2 (08:27→17:20)
[2019-07-10] MEDS: buPROPion XL 300 MG TAB.ER.24H. PO SCH (08:27)
[2019-07-10] MEDS: POLYETHYLENE GLYCOL 3350 17 GM PACKET. PO SCH (08:27)
[2019-07-10] MEDS: CHOLECALCIFEROL (VITAMIN D3) 1,000 UNIT TABLET PO SCH (08:27)
[2019-07-10] MEDS: DIVALPROEX 125 MG CAP.SPRINK PO SCH ×2 (08:27→20:23)
[2019-07-10] MEDS: MULTIVITAMIN with MINERAL TABLET. PO SCH (08:28)
[2019-07-10] MEDS: DONEPEZIL HCL 10 MG TABLET PO SCH (08:28)
--- NOTE | 2019-07-10 14:35 | NUR ---
Patient was calm, cooperative, flat, and pleasant throughout this shift. She spent most of the morning in the day room; she has been minimally participatory in group. Will continue to monitor.
[2019-07-10 16:05] VITALS: BP 108/76
--- NOTE | 2019-07-10 19:08 | PN ---
DATE: 07/08/2019 PSYCHIATRIC PROGRESS NOTE This late entry of 07/08/2019 covers elements not covered in my initial note. SUBJECTIVE: I met with the patient in the evening of 07/08/2019. The patient slept 6-1/4 hours previous night. States she is not sleeping well, somewhat withdrawn, but no overt psychotic symptoms noted. REVIEW OF SYSTEMS: No CV, , pulmonary, eye system symptoms on review. MENTAL STATUS EXAM: Reasonably oriented. Speech moderate latency, often responses monosyllabic. Abstraction fair, computation impaired. Language function intact. Mood and affect withdrawn. LABORATORY DATA: Reviewed. IMPRESSION: Unchanged from initial note. PLAN: Start trazodone 50 mg at bedtime, may repeat x 1. Stop Risperdal 0.5 mg at bedtime. Continue with Invega Sustenna every month. Rest of the psychotropics unchanged. She seemed to have more expression on her face gradually. MAN Mihaela HUGHES MD DR: CLIFTON/daniel JOB#: [id number] / [id number]
--- NOTE | 2019-07-10 19:11 | PN ---
DATE: 07/09/2019 PSYCHIATRIC PROGRESS NOTE This late entry 07/09/2019 covers elements not covered in my initial note. SUBJECTIVE: I met with the patient evening of 07/09/2019. Per NASIM Phipps, the patient slept 7-1/4 hours previous night, somewhat withdrawn, does come out for groups. No active hallucinations despite stopping the Risperdal. REVIEW OF SYSTEMS: No CV, , Pulmonary, eye system symptoms on review. MENTAL STATUS EXAM: Reasonably oriented. Speech is coherent, abstraction fair, computation impaired, language function intact. Mood and affect somewhat withdrawn. IMPRESSION: Unchanged from initial note. PLAN: No change from initial note. MAN Mihaela HUGHES MD DR: CLIFTON/daniel JOB#: [id number] / [id number]
[2019-07-10] MEDS: traZODone 50 MG TABLET. PO SCH (20:23)
--- NOTE | 2019-07-10 20:38 | PDOC ---
Exam Note: Hay Note: Please also refer to the separate dictated note~for this date of service dictated separately.~Patient seen individually. Discussed the patient with Nursing staff reviewed the chart.~Reviewed interim history and current functioning. Reviewed vital signs,~Labs/ Radiology~and current medications noted below. Continue current treatment with the changes noted in the dictated addendum note Assessment: Vital Signs/I&O: Vital Signs Date Time Temp Pulse Resp B/P (MAP) Pulse Ox O2 Delivery O2 Flow Rate FiO2 07/10/19 16:05 97.8 81 14 108/76 (87) 97 07/10/19 15:50 Room Air I & O 07/09/19 07/09/19 07/10/19 15:00 23:00 07:00 Intake Total 840 ml 360 ml 240 ml Balance 840 ml 360 ml 240 ml Labs: Laboratory Tests Test 07/10/19 06:44 07/10/19 07:16 White Blood Count 5.0 x10^3/uL (4.0-11.0) Red Blood Count 3.70 x10^6/uL (3.50-5.40) Hemoglobin 11.2 g/dL (12.0-15.5) L Hematocrit 33.8 % (36.0-47.0) L Mean Corpuscular Volume 91 fL (79-100) Mean Corpuscular Hemoglobin 30 pg (25-35) Mean Corpuscular Hemoglobin Concent 33 g/dL (31-37) Red Cell Distribution Width 14.2 % (11.5-14.5) Platelet Count 243 x10^3/uL (140-400) Neutrophils (%) (Auto) 65 % (31-73) Lymphocytes (%) (Auto) 25 % (24-48) Monocytes (%) (Auto) 10 % (0-9) H Eosinophils (%) (Auto) 0 % (0-3) Basophils (%) (Auto) 1 % (0-3) Neutrophils # (Auto) 3.2 x10^3uL (1.8-7.7) Lymphocytes # (Auto) 1.2 x10^3/uL (1.0-4.8) Monocytes # (Auto) 0.5 x10^3/uL (0.0-1.1) Eosinophils # (Auto) 0.0 x10^3/uL (0.0-0.7) Basophils # (Auto) 0.0 x10^3/uL (0.0-0.2) Sodium Level 143 mmol/L (136-145) Potassium Level 4.0 mmol/L (3.5-5.1) Chloride Level 105 mmol/L (98-107) Carbon Dioxide Level 30 mmol/L (21-32) Anion Gap 8 (6-14) Blood Urea Nitrogen 17 mg/dL (7-20) Creatinine 0.7 mg/dL (0.6-1.0) Estimated GFR (Cockcroft-Gault) 85.9 BUN/Creatinine Ratio 24 (6-20) H Glucose Level 84 mg/dL (70-99) Calcium Level 8.2 mg/dL (8.5-10.1) L Magnesium Level 1.6 mg/dL (1.8-2.4) L Total Bilirubin 0.2 mg/dL (0.2-1.0) Aspartate Amino Transferase (AST) 16 U/L (15-37) Alanine Aminotransferase (ALT) 19 U/L (14-59) Alkaline Phosphatase 29 U/L (46-116) L Total Protein 5.6 g/dL (6.4-8.2) L Albumin 2.3 g/dL (3.4-5.0) L Albumin/Globulin Ratio 0.7 (1.0-1.7) L Glucose (Fingerstick) 85 mg/dL (70-99) Current Medications: Meds: Current Medications Medications (Trade) Dose Ordered Sig/Sandra Route PRN Reason Start Time Stop Time Status Last Admin Dose Admin Trazodone HCl (Desyrel) 50 mg QHS PO 07/09/19 21:00 07/10/19 20:23 I have reviewed the current psychotropics carefully including drug interactions. Risk benefit ratio favors no change other than as noted in my dictated progress note. Diagnosis: Problems: (1) Schizoaffective disorder, bipolar type (2) Anxiety disorder (3) Major neurocognitive disorder (4) Major depressive disorder, recurrent episode (5) Schizoaffective disorder, depressive type DANIEL HUGHES MD Jul 10, 2019 20:38
--- NOTE | 2019-07-10 22:45 | NUR ---
Pt sitting quietly in the day room at shift change. Pt calm, pleasant and interactive when approached but mostly withdrawn to herself. Pt cooperative with assessment and compliant with medications.
[2019-07-11] MEDS: IPRATRPIUM/ALBUTEROL 0.5/2.5MG 3 ML NEBU. NEB SCH ×4 (05:18→23:15)
[2019-07-11 06:00] VITALS: BP 111/76
[2019-07-11] MEDS: LEVOTHYROXINE 75 MCG TABLET PO SCH (06:01)
--- NOTE | 2019-07-11 07:59 | NUR ---
[facility] Social Work Discharge Planning Form Patient Name PRO ROMERO Admit Date: 06/12/2019 DISCHARGE PLAN Discharge Destination: [facility] Assessment: NA Level II Assessment: NA Transportation: [facility] to transport pt. on 07/12/2019 at 11:00 a.m. Special Instructions/Notes: Please fax discharge paperwork and medication list to [phone]. DISCHARGE TO FACILITY Facility: [facility] Address: [facility] [address] [place] [address] Contact Name: BETITO Zaragoza Contact Name: Tamica Surveillance Director PCP: Dr. Faust Psychiatrist: Dr. Hi
--- NOTE | 2019-07-11 08:38 | NUR ---
RAOUL faxed updated pt. paperwork to Nik, Instrument Designer at [facility], in preparation for discharge scheduled for 07/12/2019.
[2019-07-11] MEDS: CHOLECALCIFEROL (VITAMIN D3) 1,000 UNIT TABLET PO SCH (08:44)
[2019-07-11] MEDS: MULTIVITAMIN with MINERAL TABLET. PO SCH (08:44)
[2019-07-11] MEDS: metFORMIN 500 MG TABLET PO SCH ×2 (08:44→17:17)
[2019-07-11] MEDS: FENOFIBRATE NANOCRYSTALLIZED 145 MG TABLET PO SCH (08:44)
[2019-07-11] MEDS: DONEPEZIL HCL 10 MG TABLET PO SCH (08:44)
[2019-07-11] MEDS: FLUTICASONE 50MCG/NASAL SPRAY 16GM BOTTLE. NS SCH (08:44)
[2019-07-11] MEDS: DIVALPROEX 125 MG CAP.SPRINK PO SCH ×2 (08:44→20:09)
[2019-07-11] MEDS: CALCIUM CARBONATE 500 MG TABLET PO SCH (08:44)
[2019-07-11] MEDS: buPROPion XL 300 MG TAB.ER.24H. PO SCH (08:45)
[2019-07-11] MEDS: POLYETHYLENE GLYCOL 3350 17 GM PACKET. PO SCH (09:00)
--- NOTE | 2019-07-11 09:41 | NUR ---
WEEKLY ACTIVITY THERAPY NOTE Date of Admission: 06/12/2019 Date of AT Assessment: 06/14/2019 Goal aimed: to increase socialization and leisure engagement Initial Goal: Pt. will engage in three Activity Therapy groups or individual sessions per week. Goal changed 06/20: Pt. will participate in at least one Activity Therapy group per day. Weekly progress towards goal: did not achieve, no groups on Monday, Pt. did not realize there were groups on this day Group participation level: moderate to full in 9 groups this week Weekly highlights: high/low game on Monday morning- started needed prompting but decreased prompting needed as activity went on Behaviors observed: quiet, reserved, calm, usually around day room, will engage in all groups Plan: no change to goal Beneficial adaptations: direct prompting, positive response to craft activities
--- NOTE | 2019-07-11 11:12 | NUR ---
RAOUL spoke to pt. sister, Nesha, to update her on pt. progress and to confirm discharge for tomorrow. RAOUL left ms. for Nik, Grinder at [facility], to discuss pt. progress and discharge scheduled for tomorrow.
--- NOTE | 2019-07-11 11:14 | NUR ---
WEEKLY NOTE Pt. has been eating 80% of meals and sleeping an average of 7 hours. Pt. has been pleasant and compliant. Pt. continues to be flat and withdrawn but does join groups when asked. Pt. denies SI. Pt. is scheduled to discharge on 07/12/[address] [facility].
--- NOTE | 2019-07-11 12:19 | NUR ---
Pt is calm, cooperative, and compliant. Denies SI/HI. She is compliant with her medication and assessment. No agitation or aggression no hallucination or delusions noted.
[2019-07-11 16:42] VITALS: BP 101/70
[2019-07-11] MEDS: traZODone 50 MG TABLET. PO SCH (20:09)
--- NOTE | 2019-07-11 20:39 | PDOC ---
Exam Note: Hay Note: Please also refer to the separate dictated note~for this date of service dictated separately.~Patient seen individually. Discussed the patient with Nursing staff reviewed the chart.~Reviewed interim history and current functioning. Reviewed vital signs,~Labs/ Radiology~and current medications noted below. Continue current treatment with the changes noted in the dictated addendum note Assessment: Vital Signs/I&O: Vital Signs Date Time Temp Pulse Resp B/P (MAP) Pulse Ox O2 Delivery O2 Flow Rate FiO2 07/11/19 16:58 Room Air 07/11/19 16:42 97.9 85 16 101/70 (80) 97 I & O 07/10/19 07/10/19 07/11/19 15:00 23:00 07:00 Intake Total 840 ml 360 ml Balance 840 ml 360 ml Labs: Laboratory Tests Test 07/11/19 07:22 Glucose (Fingerstick) 80 mg/dL (70-99) Current Medications: I have reviewed the current psychotropics carefully including drug interactions. Risk benefit ratio favors no change other than as noted in my dictated progress note. Diagnosis: Problems: (1) Schizoaffective disorder, bipolar type (2) Anxiety disorder (3) Major neurocognitive disorder (4) Major depressive disorder, recurrent episode (5) Depression (6) Schizoaffective disorder, depressive type DANIEL HUGHES MD Jul 11, 2019 20:39
--- NOTE | 2019-07-12 00:02 | NUR ---
Nursing note: Assumed care of of pt in the day room. She is calm, compliant, and pleasant but withdrawn. Interactive on a need basis only. No c/o pain, no hallucinations, delusions, denies SI.
[2019-07-12] MEDS: IPRATRPIUM/ALBUTEROL 0.5/2.5MG 3 ML NEBU. NEB SCH ×2 (06:13→10:50)
[2019-07-12] MEDS: LEVOTHYROXINE 75 MCG TABLET PO SCH (06:21)
[2019-07-12 06:38] VITALS: BP 90/58
[2019-07-12] MEDS: CALCIUM CARBONATE 500 MG TABLET PO SCH (07:58)
[2019-07-12] MEDS: DONEPEZIL HCL 10 MG TABLET PO SCH (07:58)
[2019-07-12] MEDS: metFORMIN 500 MG TABLET PO SCH (07:58)
[2019-07-12] MEDS: FLUTICASONE 50MCG/NASAL SPRAY 16GM BOTTLE. NS SCH (07:58)
[2019-07-12] MEDS: buPROPion XL 300 MG TAB.ER.24H. PO SCH (07:59)
[2019-07-12] MEDS: FENOFIBRATE NANOCRYSTALLIZED 145 MG TABLET PO SCH (07:59)
[2019-07-12] MEDS: CHOLECALCIFEROL (VITAMIN D3) 1,000 UNIT TABLET PO SCH (07:59)
[2019-07-12] MEDS: DIVALPROEX 125 MG CAP.SPRINK PO SCH (07:59)
[2019-07-12] MEDS: MULTIVITAMIN with MINERAL TABLET. PO SCH (07:59)
[2019-07-12] MEDS: POLYETHYLENE GLYCOL 3350 17 GM PACKET. PO SCH (09:00)
--- NOTE | 2019-07-12 11:20 | NUR ---
Transition Record was faxed to follow-up provider with the following elements: Reason for admission, procedures, tests, principal diagnosis, pending studies, patient instructions, 20/03 contact information for unit, phone number to obtain pending test results, plan for follow-up care, physician follow-up, advanced directive information, and medication list with dose, duration and instructions. This information was included in the following documents: History and physical, lab results, study results, progress notes, social work planning form, DC instruction form, patient visit summary, and medication reconciliation form. Date & time record faxed: During shift foreman Record faxed to: [facility] Record discussed with/ report given to: NASIM Toribio at [facility]
--- NOTE | 2019-07-12 12:45 | PN ---
DATE: 07/10/2019 PSYCHIATRIC PROGRESS NOTE This late entry 07/10/2019 covers elements not covered in my initial note. SUBJECTIVE: I met with the patient evening of 07/10/2019. Per NASIM Crowder, the patient slept 8 hours previous night. She continues to have a somewhat withdrawn affect, but otherwise compliant. Denies active psychotic symptoms despite discontinuing the Risperdal. REVIEW OF SYSTEMS: No CV, , pulmonary, eye system symptoms on review. MENTAL STATUS EXAM: Reasonably oriented. Speech has some latency, coherent, often responses monosyllabic. Abstraction fair, computation impaired, language function intact. Mood and affect withdrawn. LABORATORY DATA: Reviewed. IMPRESSION: Unchanged from initial note. PLAN: No change from initial note. MAN Mihaela HUGHES MD DR: CLIFTON/daniel JOB#: [id number] / [id number]
--- NOTE | 2019-07-12 19:24 | PN ---
DATE: 07/11/2019 PSYCHIATRIC PROGRESS NOTE This late entry 07/11/2019 covers the elements not covered in my initial note. SUBJECTIVE: I met with the patient in the evening of 07/11/2019. The patient was also staffed at a treatment team meeting with the entire team in the morning. Appetite is 80%, sleeping about 7 hours. She is compliant, somewhat withdrawn, but little more animated at times as we have reduced the Risperdal and there is no recurrence of psychotic symptoms. REVIEW OF SYSTEMS: No CV, , pulmonary, eye system symptoms on review. MENTAL STATUS EXAM: Reasonably oriented. Speech has some latency, low in volume, coherent, abstraction fair, computation impaired, language function intact. Mood and affect withdrawn. LABORATORY DATA: Reviewed. IMPRESSION: Unchanged from initial note. PLAN: No change from initial note. MAN Mihaela HUGHES MD DR: CLIFTON/daniel JOB#: [id number] / [id number]
--- NOTE | 2019-07-12 20:39 | PDOC ---
Exam Note: Hay Note: Please also refer to the separate dictated note~for this date of service dictated separately.~Patient seen individually. Discussed the patient with Nursing staff reviewed the chart.~Reviewed interim history and current functioning. Reviewed vital signs,~Labs/ Radiology~and current medications noted below. Continue current treatment with the changes noted in the dictated addendum note Assessment: Vital Signs/I&O: Vital Signs Date Time Temp Pulse Resp B/P (MAP) Pulse Ox O2 Delivery O2 Flow Rate FiO2 07/12/19 10:51 96 Room Air 07/12/19 06:38 98.2 82 16 90/58 (69) I & O 07/11/19 07/11/19 07/12/19 14:59 22:59 06:59 Intake Total 1200 ml 480 ml 240 ml Balance 1200 ml 480 ml 240 ml Labs: Laboratory Tests Test 07/12/19 07:38 Glucose (Fingerstick) 84 mg/dL (70-99) Current Medications: I have reviewed the current psychotropics carefully including drug interactions. Risk benefit ratio favors no change other than as noted in my dictated progress note. Diagnosis: Problems: (1) Schizoaffective disorder, bipolar type (2) Anxiety disorder (3) Major neurocognitive disorder (4) Major depressive disorder, recurrent episode (5) Schizoaffective disorder, depressive type DANIEL HUGHES MD Jul 12, 2019 20:39
--- NOTE | 2019-07-14 13:23 | DS ---
DATE OF DISCHARGE: 07/12/2019 DISCHARGE SUMMARY AND PSYCHIATRIC PROGRESS NOTE This late entry 07/12 covers elements not covered in my initial note. REASON FOR ADMISSION: Please refer to the admission history for details. Briefly, the patient is a 59-year-old female referred to us from [facility] in [place], [place] by Dr. Faust, her primary care physician, after she had failed outpatient psychiatric interventions with myself, was threatening suicide. She tried to walk out [place] the traffic on [place] highway, was depressed, anxious, sad. She said she was hearing the sound of a tunnel in her head and responding to this. SIGNIFICANT FINDINGS AND CLINICAL COURSE: Following admission, the patient was seen daily individually by myself from a psychiatric standpoint, medical followup with Dr. Sanchez. The patient was quite paranoid, psychotic, somewhat depressed. Adjustments were made in her psychotropics and she seemed to respond to a combination of Invega 117 mg monthly on the , Aricept 10 mg a day, Wellbutrin-XL 450 mg a day, Zyprexa p.r.n., Depakote Sprinkles 500 mg a.m. and 750 at bedtime, trazodone 50 mg at bedtime, december repeat x 1. Once the valproic acid level was stabilized to be therapeutic, we gradually reduced and ultimately discontinued the oral Risperdal. There was no worsening of her psychotic symptoms. In fact, there was some improvement, but she remained on the Invega Sustenna on a scheduled basis. Mood was improved as well. She was more interactive, verbal. No suicidal or homicidal ideation prior to discharge. REVIEW OF SYSTEMS: Prior to discharge, 07/12, no CV, , pulmonary, eye, ENT system symptoms on review. MENTAL STATUS EXAM: Oriented to herself and situation. Speech moderate latency, often responses monosyllabic. Abstraction fair, computation impaired. Language function intact. Attention span short. Mood and affect withdrawn, but improved. No psychotic symptoms, suicidal or homicidal ideation prior to discharge. CONDITION AT DISCHARGE: Improved. FINAL DIAGNOSES: Schizoaffective disorder, bipolar type, mixed with psychotic features; history of major depressive disorder with psychotic features; anxiety disorder, unspecified; mild cognitive impairment. Rest unchanged from admission. DISCHARGE MEDICATIONS: Please refer to the MRAD. DISCHARGE INSTRUCTIONS: Outpatient psychiatric and medical followup at [facility]. Time for discharge day management greater than 30 minutes. MAN Mihaela HUGHES MD DR: CLIFTON/daniel JOB#: [id number] / [id number]
== END 2019-07-12 11:20 | DRG 885 ==
LOC: ER 17:50 → GEROPSY 06-12 00:05
PROVIDERS: ADMIT Psychiatry & Neurology Psychiatry; ATTEND Psychiatry & Neurology Psychiatry
DX: F25.0 Schizoaffective disorder, bipolar type (principal); R45.851 Suicidal ideations; F01.51 Vascular dementia, unspecified severity, with behavioral disturbance; J44.9 Chronic obstructive pulmonary disease, unspecified; E78.5 Hyperlipidemia, unspecified; E11.9 Type 2 diabetes mellitus without complications; E03.9 Hypothyroidism, unspecified; E78.00 Pure hypercholesterolemia, unspecified; M19.90 Unspecified osteoarthritis, unspecified site; K21.9 Gastro-esophageal reflux disease without esophagitis; F41.9 Anxiety disorder, unspecified; I10 Essential (primary) hypertension; J30.9 Allergic rhinitis, unspecified; Z79.899 Other long term (current) drug therapy; Z81.8 Family history of other mental and behavioral disorders; Z87.891 Personal history of nicotine dependence; Z91.5 Personal history of self-harm
CPT/HCPCS: 36415; 70450; 71045; 72125; 74019; 80048; 80053; 80061; 80076; 80164; 80307; 81001; 82140; 82306; 82550; 82947; 83036; 83540; 83550; 83735; 83880; 84436; 84443; 84480; 84484; 85025; 85610; 85651; 85730; 86592; 87086; 90471; 90686; 93005; 94640; 94760; 96360; 96361; J2426; J7120; J7620; Q0161; 99285-25